=== PATIENT | female | born 1955 | race Caucasian/White ===

== ENCOUNTER 2017-06-16 07:40 | Inpatient (IN) | payer SELFPAY ==
[~2017-06-16] VITALS: Ht 160 cm; Wt 104.0 kg
[~2017-06-16 07:40] MED LIST: 1-ME1LIQ PO; ASPI81TA82 PO; BACT800T5 PO; CRES20TA PO; HYDR-3533 PO; POLY10O OU; ZOFR4TAB3 SL
[2017-06-16 07:51] VITALS: BP 131/62; PULSE 71; RESP 15; TEMP 97.8; O2SAT 100
[2017-06-16] MEDS ORDERED: SODIUM CHLOR 0.9% 1000 ML INJ 1,000 ML IV ONE ×2 (08:30→10:00)
--- NOTE | 2017-06-16 08:30 | PD ---
HPI Chief Complaint: Altered Mental Status Time Seen by Provider: 08:02 Travel History International Travel<30 days: No Contact w/Intl Traveler<30days: No Traveled to known affect area: No History of Present Illness HPI 61 y/o female presents with acting abnormally and presenting by ambulance. She states she feels like she drunk but did not drink. She notes easy bruising and multiple falls. She states she saw her primary on wednesday and was placed on ciprofloxacin and they wanted to check blood but she has not had that yet. Patient denies any other specific complaints but is a poor historian. PFSH Past Medical History Narrative Medical By records ADD: Yes (PER HISTORY) Anxiety: No Depression: Yes Cancer: No Cardiovascular Problems: Yes High Cholesterol: Yes Diminished Hearing: No Endocrine: No Gastrointestinal Disorders: No Hypertension: Yes Immune Disorder: No Implanted Vascular Access Dvce: No Musculoskeletal: No Neurologic: No Reproductive: No Respiratory: No Influenza Vaccination: Yes Menopausal: Yes : 1 Para: 1 Past Surgical History Narrative Surgical By records Abdominal Surgery: Yes (CHOLECYSTECTOMY) Cholecystectomy: Yes Other Surgery: Yes (BILATERAL BUNION) Social History Narrative Social History By records Alcohol Use: Yes (1-2 GLASSES RUM PER DAY) Tobacco Use: No Substance Use: Yes (HX MARIJUANA ) Allergies-Medications (Allergen,Severity, Reaction): Coded Allergies: No Known Allergies (Verified , 08/03/14) Reported Meds & Prescriptions Reported Meds & Active Scripts Active Bactrim DS (Sulfamethoxazole-Trimethoprim DS) 1 Tab Tab 1 Tab PO BID Lortab 5 mg/325 mg (Hydrocodone/Acetaminophen 5 mg/325 mg) 1 Tab 1 Tab PO Q6H PRN Polytrim Opth (Polymyxin/Trimethoprim Sulfate) 10 Ml Soln 1 Drop OU EVERY 3 HOURS 7 Days Zofran ODT (Ondansetron HCl) 4 Mg Tab 4 Mg SL Q6H PRN FOR NAUSEA/VOMITING Reported Aspir-81 (Aspirin) 81 Mg Tab 81 Mg PO DAILY Crestor (Rosuvastatin Calcium) 20 Mg Tab 20 Mg PO DAILY Amlodipine Besylate 10 mg (Amlodipine Besylate) 10 Mg Tab 1 Tab PO DAILY Review of Systems ROS Limitations: Poor Historian Except as stated in HPI: all other systems reviewed are Neg Physical Exam Exam Limitations: Poor Historian Narrative GENERAL: Well-nourished, well-developed patient. SKIN: Warm and dry. Multiple varying stages of bruising noted to back, breasts , abdomen, legs, arms HEAD: Normocephalic and atraumatic. EYES: No injection or drainage. ENT: No nasal drainage noted. NECK: Supple, trachea midline. Nontender in midline CARDIOVASCULAR: Regular rate and rhythm RESPIRATORY: Breath sounds equal bilaterally at apices. No accessory muscle use. GASTROINTESTINAL: Abdomen soft, non-tender, nondistended. EXTREMITIES: No specific joint pain with range of motion BACK: Nontender without obvious deformity in midline. NEUROLOGICAL: Awake. Moves all extremities and sensory grossly within normal limits. Normal speech. Data Data Last Documented VS Vital Signs Date Time Temp Pulse Resp B/P (MAP) Pulse Ox O2 Delivery O2 Flow Rate FiO2 06/16/17 08:03 Room Air 06/16/17 07:51 97.8 71 15 131/62 (85) 100 Orders Orders Complete Blood Count With Diff (06/16/17 07:58) Comprehensive Metabolic Panel (06/16/17 07:58) Prothrombin Time / Inr (Pt) (06/16/17 07:58) Act Partial Throm Time (Ptt) (06/16/17 07:58) Lactic Acid Sepsis Protocol (06/16/17 07:58) Magnesium (Mg) (06/16/17 07:58) Phosphorus (Po4) (06/16/17 07:58) Urinalysis - C+S If Indicated (06/16/17 07:58) Blood Culture (06/16/17 07:58) Chest, Single Ap (06/16/17 07:58) Blood Glucose (06/16/17 07:58) Ecg Monitoring (06/16/17 07:58) Iv Access Insert/Monitor (06/16/17 07:58) Oximetry (06/16/17 07:58) Ct Brain W/O Iv Contrast(Rout) (06/16/17 07:58) Alcohol (Ethanol) (06/16/17 07:58) Sodium Chlor 0.9% 1000 Ml Inj (Ns 1000 M (06/16/17 08:30) Urine Culture (06/16/17 08:30) Ct Abd/Pel W/O Iv Contrast (06/16/17 ) Piperacil-Tazo 4.5 Gm Premix (Zosyn 4.5 (06/16/17 09:48) Sodium Chlor 0.9% 1000 Ml Inj (Ns 1000 M (06/16/17 10:00) Admit Order (Ed Use Only) (06/16/17 10:40) Labs Laboratory Tests Test 06/16/17 08:30 White Blood Count 6.6 TH/MM3 Red Blood Count 3.94 MIL/MM3 Hemoglobin 13.1 GM/DL Hematocrit 38.2 % Mean Corpuscular Volume 97.1 FL Mean Corpuscular Hemoglobin 33.2 PG Mean Corpuscular Hemoglobin Concent 34.2 % Red Cell Distribution Width 17.0 % Platelet Count 162 TH/MM3 Mean Platelet Volume 10.1 FL Neutrophils (%) (Auto) 78.3 % Lymphocytes (%) (Auto) 7.8 % Monocytes (%) (Auto) 12.8 % Eosinophils (%) (Auto) 0.8 % Basophils (%) (Auto) 0.3 % Neutrophils # (Auto) 5.2 TH/MM3 Lymphocytes # (Auto) 0.5 TH/MM3 Monocytes # (Auto) 0.8 TH/MM3 Eosinophils # (Auto) 0.1 TH/MM3 Basophils # (Auto) 0.0 TH/MM3 CBC Comment DIFF FINAL Differential Comment Prothrombin Time 12.6 SEC Prothromb Time International Ratio 1.2 RATIO Activated Partial Thromboplast Time 23.7 SEC Urine Color YELLOW Urine Turbidity CLOUDY Urine pH 6.0 Urine Specific [place] 1.017 Urine Protein 100 mg/dL Urine Glucose (UA) NEG mg/dL Urine Ketones TRACE mg/dL Urine Occult Blood LARGE Urine Nitrite NEG Urine Bilirubin NEG Urine Urobilinogen LESS THAN 2.0 MG/DL Urine Leukocyte Esterase LARGE Urine RBC 28 /hpf Urine WBC /hpf Urine WBC Clumps MANY Urine Bacteria MOD /hpf Urine Mucus FEW /lpf Microscopic Urinalysis Comment CATH-CULTURE IND Blood Urea Nitrogen 68 MG/DL Creatinine 2.16 MG/DL Random Glucose 109 MG/DL Total Protein 7.4 GM/DL Albumin 3.1 GM/DL Calcium Level 8.6 MG/DL Phosphorus Level 3.4 MG/DL Magnesium Level 2.3 MG/DL Alkaline Phosphatase 129 U/L Aspartate Amino Transf (AST/SGOT) 1942 U/L Alanine Aminotransferase (ALT/SGPT) 915 U/L Total Bilirubin 2.3 MG/DL Sodium Level 130 MEQ/L Potassium Level 3.9 MEQ/L Chloride Level 92 MEQ/L Carbon Dioxide Level 24.0 MEQ/L Anion Gap 14 MEQ/L Estimat Glomerular Filtration Rate 23 ML/MIN Lactic Acid Level 1.1 mmol/L Ethyl Alcohol Level LESS THAN 3 MG/DL MDM Medical Decision Making Medical Screen Exam Complete: Yes Emergency Medical Condition: Yes Medical Record Reviewed: Yes (past history confirmed) Interpretation(s) EKG shows NSR, no ST elevation or depression, and no arrhythmias. No significant T-wave inversions. Limited by wandering baseline CBC & BMP Diagram 06/16/17 08:30 Total Protein 7.4, Albumin 3.1 L, Calcium Level 8.6, Phosphorus Level 3.4, Magnesium Level 2.3, Alkaline Phosphatase 129 H, Aspartate Amino Transf (AST/ SGOT) 1942 H, Alanine Aminotransferase (ALT/SGPT) 915 H, Total Bilirubin 2.3 H Last [address] 06/16/17 0758 Signed Impressions: Service Date/Time: Friday, June 16, 2017 10:17 - CONCLUSION: 1. Unremarkable exam. 2. No evidence of acute infarct, hemorrhage, mass, edema or extra-axial fluid collections. Parker Perales MD Chest X-Ray 06/16/17 0758 Signed Impressions: Service Date/Time: Friday, June 16, 2017 08:47 - CONCLUSION: No acute cardiopulmonary process. Baljeet Buckley MD Abdomen/Pelvis CT 06/16/17 0000 Signed Impressions: Service Date/Time: Friday, June 16, 2017 10:19 - CONCLUSION: 1. 4 mm calculus in the left renal collecting system at the ureteropelvic junction without significant hydronephrosis. 2. 6.9 cm cystic mass in the head of the pancreas. 3. Hypodense area within the liver adjacent to the gallbladder fossa. This does not have a typical appearance for a mass and may represent focal hepatic injury following cholecystectomy. 4. Right nephrolithiasis. Parker Peralse MD ua with uti Differential Diagnosis Thrombocytopenia, UTI, sepsis, intercranial, fracture Narrative Course Will check blood work, imaging, urinalysis and dose with IV fluids and reevaluate ed workup with acute renal failure, uti, patient updated and agrees to admit Physician Communication Physician Communication resident team agrees to admit Diagnosis Primary Impression: UTI (urinary tract infection) Qualified Codes: N39.0 - Urinary tract infection, site not specified Additional Impressions: Altered mental status Qualified Codes: R41.82 - Altered mental status, unspecified Acute renal failure Qualified Codes: N17.9 - Acute kidney failure, unspecified Abnormal LFTs Admitting Information Admitting Physician Requests: it Malena Zabala MD Jun 16, 2017 08:30
[2017-06-16 09:09] LABS: AUTOMATED NEUTROPHIL # 5.2 TH/MM3 (1.8-7.7); BASOPHIL % 0.3 % (0.0-2.0); EOSINOPHIL # 0.1 TH/MM3 (0-0.4); EOSINOPHIL % 0.8 % (0.0-4.0); HEMATOCRIT 38.2 % (35.0-46.0); HEMO FLAGS DIFF FINAL; LYMPH % 7.8 % (9.0-44.0); LYMPHOCYTE # 0.5 TH/MM3 (1.0-4.8); MEAN CELL VOLUME 97.1 FL (80.0-100.0); MEAN CORPUSCULAR HEMOGLOBIN 33.2 PG (27.0-34.0); MEAN CORPUSCULAR HGB CONC 34.2 % (32.0-36.0); MONO % 12.8 % (0.0-8.0); NEUT % 78.3 % (16.0-70.0); PLATELET COUNT 162 TH/MM3 (150-450); RED BLOOD COUNT 3.94 MIL/MM3 (4.00-5.30); WHITE BLOOD COUNT 6.6 TH/MM3 (4.0-11.0)
[2017-06-16 09:20] LABS: BACTERIA, URINE MOD /hpf; BLOOD, URINE LARGE (NEG); GLUCOSE,URINE NEG (NEG); KETONE, URINE TRACE mg/dL (NEG); MUCUS URINE FEW /lpf (OCC); NITRITE,URINE NEG (NEG); URINE COLOR YELLOW (YELLW/STRAW)
[2017-06-16 09:22] LABS: ALT (GPT) 915 U/L (10-53); APTT (PATIENT) 23.7 SEC (24.3-30.1); INTERNATIONAL NORMALIZED RATIO 1.2 RATIO; PROTHROMBIN TIME - PATIENT 12.6 SEC (9.8-11.6)
[2017-06-16 09:23] LABS: COMMENT (UR) CATH-CULTURE IND; CULTURE IF INDICATED CATH CULTURE IND
[2017-06-16 09:32] LABS: ALKALINE PHOSPHATASE 129 U/L (45-117); ANION GAP 14 MEQ/L (5-15); AST (GOT) 1942 U/L (15-37); BLOOD UREA NITROGEN 68 MG/DL (7-18); CHLORIDE 92 MEQ/L (98-107); GLOMERULAR FILTRATION RATE 23 ML/MIN (>89); MAGNESIUM 2.3 MG/DL (1.5-2.5); SODIUM (NA) 130 MEQ/L (136-145); TOTAL BILIRUBIN ADULT 2.3 MG/DL (0.2-1.0)
[2017-06-16 09:33] LABS: ALCOHOL LESS THAN 3 MG/DL (0-5); POTASSIUM 3.9 MEQ/L (3.5-5.1)
[2017-06-16] MEDS ORDERED: PIPERACIL-TAZO 4.5 GM PREMIX 100 ML IV STA (09:48)
--- NOTE | 2017-06-16 10:01 | RADRPT ---
EXAM DATE/TIME: 06/16/2017 08:47 [facility] COMPARISON: CHEST SINGLE AP, April 01, 2012, 3:18. INDICATIONS : Shortness of breath. MEDICAL HISTORY : None. SURGICAL HISTORY : None. ENCOUNTER: Initial ACUITY: 1 day PAIN SCORE: 0/10 LOCATION: Bilateral chest FINDINGS: A single view of the chest demonstrates the lungs to be symmetrically aerated without evidence of mas s, infiltrate or effusion. The cardiomediastinal contours are unremarkable. Osseous structures are intact with some degenerative spurring of the dorsal spine. CONCLUSION: No acute cardiopulmonary process. Baljeet Buckley MD on June 16, 2017 at 9:34 Board Certified Radiologist. This report was verified electronically.
--- NOTE | 2017-06-16 10:42 | RADRPT ---
EXAM DATE/TIME: 06/16/2017 10:17 [facility] COMPARISON: No previous studies available for comparison. INDICATIONS : Confusion. Fall 1 week ago. RADIATION DOSE: 56.35 CTDIvol (mGy) MEDICAL HISTORY : Hypertension. SURGICAL HISTORY : Cholecystectomy. ENCOUNTER: Initial ACUITY: 1 week PAIN SCALE: 0/10 LOCATION: cranial TECHNIQUE: Multiple contiguous axial images were obtained of the head. Using automated exposure control and adj ustment of the mA and/or kV according to patient size, radiation dose was kept as low as reasonably a chievable to obtain optimal diagnostic quality images. DICOM format image data is available electro nically for review and comparison. FINDINGS: CEREBRUM: The ventricles are normal for age. No evidence of midline shift, mass lesion, hemorrhage or acute in farction. No extra-axial fluid collections are seen. POSTERIOR FOSSA: The cerebellum and brainstem are intact. The 4th ventricle is midline. The cerebellopontine angle i s unremarkable. EXTRACRANIAL: The visualized portion of the orbits is intact. SKULL: The calvaria is intact. No evidence of skull fracture. CONCLUSION: 1. Unremarkable exam. 2. No evidence of acute infarct, hemorrhage, mass, edema or extra-axial fluid collections. Parker Perales MD on June 16, 2017 at 10:39 Board Certified Radiologist. This report was verified electronically.
--- NOTE | 2017-06-16 11:19 | HHI.HP ---
[facility] Service Family Medicine Primary Care Physician Prashant Pichardo M.D. Admission Diagnosis uti, renal failure Diagnoses: International Travel<30 Days: No Contact w/Intl Traveler<30days: No Known Affected Area: No History of Present Illness Patient is a 61 year old female with PMH significant for depression, etoh and polysubstance abuse per EMR, and previous suicide attempt brought to the ED via [facility] for evaluation of altered mental status. Patient was recently seen at her PCPs office this past Wednesday and was reportedly started on ciprofloxacin, however is it questionable whether she has been able to obtain this. Patient is seen in the ED, is alert and oriented x3 however does not answer all questions about medical history of series of events earlier today as she has a very circumstantial speech and remains confused. Patient has multiple obvious areas of bruising in various stages of healing, located throughout her body. She is alert enough to answer questions about her social history, and on questioning she denies living with anyone, or being the victim of abuse. She stated she frequently "bumps into things" and this is what may cause her bruising. Her PCPs office was called, Dr. Pichardo at [phone] to review PMH and medication list. Patient is currently on lasix 20 mg once daily, amlodipine 10 mg daily, baclofen 10 mg daily, Lipitor 40 mg daily, Lexapro 20 mg daily, Gabapentin 300 mg once daily, Metoprolol 50 mg daily, Wellbutrin 100 mg twice daily, Adderall XR 30 mg once daily + IR 10 mg twice daily. (Larry Gupta MD R2) Review of Systems ROS Limitations: Altered Mental Status (Larry Gupta MD R2) Past Family Social History Past Medical History Depression Etoh abuse Polysubstance abuse Suicide attempt HTN ADD HLD OA PVD Colitis Past Surgical History Cholecystectomy Bilateral bunion surgery (Larry Gupta MD R2) Allergies: Coded Allergies: No Known Allergies (Verified , 08/03/14) Family History Unable to be obtained secondary to AMS Social History Tobacco: States she quit smoking back in , admits to 1/2PPD-1PPD ~30 years prior to quitting Etoh: states her last drink was about 2 weeks ago, admits to drinking gin Illicit drug use: patient denied Lives in a trailer home Patient states she lives alone, unclear if patient is telling the truth (Larry Gupta MD R2) Physical Exam Vital Signs Vital Signs Date Time Temp Pulse Resp B/P (MAP) Pulse Ox O2 Delivery O2 Flow Rate FiO2 06/16/17 08:03 Room Air 06/16/17 07:51 97.8 71 15 131/62 (85) 100 Physical Exam GENERAL: NAD, lying comfortably in bed NEURO: Alert. Oriented x4. Normal speech. content designer grossly intact. Motor grossly normal. SKIN: Many areas of bruising scattered throughout the body including her back, trunk, bilateral arms, bilateral lower extremities and ankles. In various stages of healing. There appears to be bruising in the shape of a hand possibly with finger imprints along the patients posterior right shoulder. HEAD: Normocephalic. Atraumatic. EYES: PERRL. EOMI. No scleral icterus. No injection or drainage. ENT: No nasal drainage. Upper teeth are absent. Moist mucous membranes. No oral ulcers or lesions. NECK: Supple, trachea midline. No JVD. CARDIOVASCULAR: Regular rate and rhythm without murmurs, rubs, or gallops. Peripheral pulses 2+. Capillary refill < 2 seconds. RESPIRATORY: Breath sounds clear to auscultation and equal bilaterally, without wheezes, rales, or rhonchi. No accessory muscle use. GASTROINTESTINAL: Abdomen soft, nontender, protuberant, normal BS. Unable to assess for organomegaly or masses secondary to protuberance of abdomen. No rebound tenderness. No guarding. MUSCULOSKELETAL: 2+ edema of bilateral lower extremities up to mid tibias. BACK: Nontender, no obvious deformity. Significant bruising as mentioned above. Laboratory Laboratory Tests Test 06/16/17 08:30 White Blood Count 6.6 Red Blood Count 3.94 Hemoglobin 13.1 Hematocrit 38.2 Mean Corpuscular Volume 97.1 Mean Corpuscular Hemoglobin 33.2 Mean Corpuscular Hemoglobin Concent 34.2 Red Cell Distribution Width 17.0 Platelet Count 162 Mean Platelet Volume 10.1 Neutrophils (%) (Auto) 78.3 Lymphocytes (%) (Auto) 7.8 Monocytes (%) (Auto) 12.8 Eosinophils (%) (Auto) 0.8 Basophils (%) (Auto) 0.3 Neutrophils # (Auto) 5.2 Lymphocytes # (Auto) 0.5 Monocytes # (Auto) 0.8 Eosinophils # (Auto) 0.1 Basophils # (Auto) 0.0 CBC Comment DIFF FINAL Differential Comment Prothrombin Time 12.6 Prothromb Time International Ratio 1.2 Activated Partial Thromboplast Time 23.7 Urine Color YELLOW Urine Turbidity CLOUDY Urine pH 6.0 Urine Specific [place] 1.017 Urine Protein 100 Urine Glucose (UA) NEG Urine Ketones TRACE Urine Occult Blood LARGE Urine Nitrite NEG Urine Bilirubin NEG Urine Urobilinogen LESS THAN 2.0 Urine Leukocyte Esterase LARGE Urine RBC 28 Urine WBC Urine WBC Clumps MANY Urine Bacteria MOD Urine Mucus FEW Microscopic Urinalysis Comment CATH-CULTURE IND Blood Urea Nitrogen 68 Creatinine 2.16 Random Glucose 109 Total Protein 7.4 Albumin 3.1 Calcium Level 8.6 Phosphorus Level 3.4 Magnesium Level 2.3 Alkaline Phosphatase 129 Aspartate Amino Transf (AST/SGOT) 1942 Alanine Aminotransferase (ALT/SGPT) 915 Total Bilirubin 2.3 Sodium Level 130 Potassium Level 3.9 Chloride Level 92 Carbon Dioxide Level 24.0 Anion Gap 14 Estimat Glomerular Filtration Rate 23 Lactic Acid Level 1.1 Ethyl Alcohol Level LESS THAN 3 Date/Time Source Procedure Growth Status 06/16/17 08:35 Blood Peripheral Aerobic Blood Culture Pending Received 06/16/17 08:35 Blood Peripheral Anaerobic Blood Culture Pending Received 06/16/17 08:30 Urine Catheterized Urine Urine Culture Pending Received (Larry Gupta MD R2) Result Diagram: 06/16/17 0830 06/16/1730 Septic Shock Reassessment Heart: Regular rate and rhythm Lungs: Clear Skin: Warm, Dry Peripheral Pulses: Bounding Right Radial Bounding Left Radial Capillary Refill: <2 seconds (Larry Gupta MD R2) Caprini VTE Risk Assessment Caprini VTE Risk Assessment: No/Low Risk (score <= 1) Caprini Risk Assessment Model Point Value = 1 Point Value = 2 Point Value = 3 Point Value = 5 Age 41-60 Minor surgery BMI > 25 kg/m2 Swollen legs Varicose veins or History of unexplained or recurrent spontaneous Oral contraceptives or hormone replacement Sepsis (< 1 month) Serious lung disease, including pneumonia (< 1 month) Abnormal pulmonary function Acute myocardial infarction Congestive heart failure (< 1 month) History of inflammatory bowel disease Medical patient at bed rest Age 61-74 Arthroscopic surgery Major open surgery (> 45 min) Laparoscopic surgery (> 45 min) Malignancy Confined to bed (> 72 hours) Immobilizing plaster cast Central venous access Age >= 75 History of VTE Family history of VTE Factor V Leiden Prothrombin [id number] Lupus anticoagulant Anticardiolipin antibodies Elevated serum homocysteine Heparin-induced thrombocytopenia Other congenital or acquired thrombophilia Stroke (< 1 month) Elective arthroplasty Hip, pelvis, or leg fracture Acute spinal cord injury (< 1 month) Prophylaxis Regimen Total Risk Factor Score Risk Level Prophylaxis Regimen 0-1 Low Early ambulation 2 Moderate Order ONE of the following: *Sequential Compression Device (SCD) *Heparin 5000 units SQ BID 3-4 Higher Order ONE of the following medications: *Heparin 5000 units SQ TID *Enoxaparin/Lovenox 40 mg SQ daily (WT < 150 kg, CrCl > 30 mL/min) *Enoxaparin/Lovenox 30 mg SQ daily (WT < 150 kg, CrCl > 10-29 mL/min) *Enoxaparin/Lovenox 30 mg SQ BID (WT < 150 kg, CrCl > 30 mL/min) AND/OR *Sequential Compression Device (SCD) 5 or more Highest Order ONE of the following medications: *Heparin 5000 units SQ TID (Preferred with Epidurals) *Enoxaparin/Lovenox 40 mg SQ daily (WT < 150 kg, CrCl > 30 mL/min) *Enoxaparin/Lovenox 30 mg SQ daily (WT < 150 kg, CrCl > 10-29 mL/min) *Enoxaparin/Lovenox 30 mg SQ BID (WT < 150 kg, CrCl > 30 mL/min) AND *Sequential Compression Device (SCD) (Larry Gupta MD R2) Assessment and Plan Assessment and Plan 61-year-old female being admitted with AMS, UTI, acute renal insufficiency, and markedly elevated LFTs. Code Status Full code Discussed Condition With Dr. Marco Antonio Hansen (Larry Gupta MD R2) Attending Attestation Patient seen and examined. Case reviewed and discussed with the resident team. Agree with plan of care as discussed with me and documented in the resident note. (Kaylin Bernard MD) Problem List: (1) Abnormal LFTs ICD Codes: R79.89 - Other specified abnormal findings of blood chemistry Status: Acute Plan: LFTs markedly elevated, with AST > 2xALT Total bilirubin 2.3 INR 1.2 Patient is known to have a history of alcohol abuse Obtain hepatitis panel Abdomen/pelvis CT showing 4mm calculus of the left renal collecting system at the UPJ however without significant hydronephrosis; 6.9 cm cystic mass in the head of the pancreas; hypodense area measuring 52 cm in the left hepatic lobe Will consult gastroenterology, appreciate recommendations (2) UTI (urinary tract infection) ICD Codes: N39.0 - Urinary tract infection, site not specified Status: Acute Plan: UA with large LE, many wbc clumps, mod bacteria, no comment on squam cells Urine culture pending Given Zosyn 4.5gm IV in the ED Continue with Rocephin 1gm IV q24h (3) Acute renal failure ICD Codes: N17.9 - Acute kidney failure, unspecified Status: Acute Plan: Cr 2.16 on admission, baseline ~1.0 Consider pre-renal due to dehydration, no evidence of hydronephrosis on CT Continue NS at 100 cc/hr (4) Hyponatremia ICD Codes: E87.1 - Hypo-osmolality and hyponatremia Plan: Na noted to be 130 on admission NS as above Consider discontinuation of NS and fluid restriction based on repeat Na level (5) Altered mental status ICD Codes: R41.82 - Altered mental status, unspecified Status: Acute Plan: Consider cause due to urinary tract infection, medication effect, hyperammonemia, toxic metabolic Treatment UTI as above Obtain ammonia level Appreciate psychiatry consultation Urine drug screen positive for amphetamines, patient does take Adderall (6) H/O ETOH abuse ICD Codes: Z87.898 - Personal history of other specified conditions Plan: [facility] protocol IV rally pack Monitor clinically (7) Hypertension ICD Codes: I10 - Essential (primary) hypertension Plan: BP within normal limits on admission Consider restarting home medications, patient takes amlodipine 10 mg daily, metoprolol 50 mg once daily (8) Nutrition, metabolism, and development symptoms ICD Codes: R63.8 - Other symptoms and signs concerning food and fluid intake Status: Acute Plan: Fluids: NS at 100 cc/hr Electrolytes: Continue to monitor, replete as needed Nutrition: Heart healthy (Larry Gupta MD R2) Physician Certification 2 Midnight Certification Type: Admission for Inpatient Services Order for Inpatient Services The services are ordered in accordance with Medicare regulations or non- Medicare payer requirements, as applicable. In the case of services not specified as inpatient-only, they are appropriately provided as inpatient services in accordance with the 2-midnight benchmark. Estimated LOS (days): 2 days is the estimated time the patient will need to remain in the hospital, assuming treatment plan goals are met and no additional complications. Post-Hospital Plan: Not yet determined (Larry Gupta MD R2) Problem Qualifiers (1) UTI (urinary tract infection): Qualified Codes: N39.0 - Urinary tract infection, site not specified (2) Acute renal failure: Qualified Codes: N17.9 - Acute kidney failure, unspecified (3) Altered mental status: Qualified Codes: R41.82 - Altered mental status, unspecified Larry Gupta MD R2 Jun 16, 2017 11:19 Kaylin Bernard MD Jun 17, 2017 08:12
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
--- NOTE | 2017-06-16 11:35 | RADRPT ---
EXAM DATE/TIME: 06/16/2017 10:19 [place] COMPARISON: No previous studies available for comparison. INDICATIONS : Abdominal pain. ORAL CONTRAST: No oral contrast ingested. RADIATION DOSE: 16.92 CTDIvol (mGy) MEDICAL HISTORY : Hypertension. SURGICAL HISTORY : Cholecystectomy. ENCOUNTER: Initial ACUITY: 1 week PAIN SCALE: 4/10 LOCATION: Bilateral abdomen TECHNIQUE: Volumetric scanning of the abdomen and pelvis was performed. Using automated exposure control and ad justment of the mA and/or kV according to patient size, radiation dose was kept as low as reasonably achievable to obtain optimal diagnostic quality images. DICOM format image data is available electro nically for review and comparison. FINDINGS: LOWER LUNGS: The visualized lower lungs are clear. LIVER: A subcapsular area of hypodensity measuring 5 x 2 cm in size is identified in the left hepatic lobe a djacent to the gallbladder fossa. The gallbladder has been removed with multiple clips noted. Liver i s otherwise unremarkable. There is no evidence of biliary duct dilatation. SPLEEN: Normal size without lesion. PANCREAS: Large cystic mass measuring 5.8 x 6.9 cm in size is identified in the head of the pancreas. There is lateral displacement and effacement of the duodenum. The mass effaces but does not encase the mesente clemente vessels. Body and tail of the pancreas appear normal. KIDNEYS: At least 2 calculi are identified in the right kidney. A 2 mm calculus is identified in the upper lob e. A 6 mm calculus is identified in the lower pole. A 4 mm calculus is identified at the ureteropelvic junction on the left. The renal collecting sy stem is not dilated. ADRENAL GLANDS: Within normal limits. VASCULAR: There is no aortic aneurysm. BOWEL/MESENTERY: The stomach, small bowel, and colon demonstrate no acute abnormality. There is no free intraperitone al air or fluid. ABDOMINAL WALL: Small fat-containing umbilical hernia is noted. RETROPERITONEUM: There is no lymphadenopathy. BLADDER: No wall thickening or mass. REPRODUCTIVE: Within normal limits. INGUINAL: There is no lymphadenopathy or hernia. MUSCULOSKELETAL: Within normal limits for patient age. CONCLUSION: 1. 4 mm calculus in the left renal collecting system at the ureteropelvic junction without significan t hydronephrosis. 2. 6.9 cm cystic mass in the head of the pancreas. 3. Hypodense area within the liver adjacent to the gallbladder fossa. This does not have a typical ap pearance for a mass and may represent focal hepatic injury following cholecystectomy. 4. Right nephrolithiasis. Parker Perales MD on June 16, 2017 at 11:25 Board Certified Radiologist. This report was verified electronically.
[2017-06-16] MEDS ORDERED: SODIUM CHLORIDE 0.9% FLUSH 10 ML FLUSH IV FLUSH PRN (11:45)
[2017-06-16] MEDS ORDERED: SENNOSIDES 8.6 MG TAB PO PRN (11:45)
[2017-06-16] MEDS ORDERED: MAGNESIUM HYDROXIDE SUSP 30 ML CUP PO PRN (11:45)
[2017-06-16] MEDS ORDERED: BISACODYL 10 MG SUPP RECTAL PRN (11:45)
[2017-06-16] MEDS ORDERED: SODIUM CHLORIDE 0.9% FLUSH 10 ML FLUSH IV FLUSH SCH (11:45)
[2017-06-16] MEDS ORDERED: LACTULOSE SYRUP 20 GM/30 ML CUP PO PRN (11:45)
[2017-06-16] MEDS ORDERED: NALOXONE HCL 0.4 MG/ML AMP IV PUSH PRN (11:45)
[2017-06-16] MEDS ORDERED: FLUMAZENIL 0.5 MG/5 ML VIAL IV PUSH PRN (12:15)
[2017-06-16] MEDS ORDERED: SODIUM CHLOR 0.9% 1000 ML INJ 1,000 ML IV SCH (12:15)
[2017-06-16] MEDS ORDERED: LORazepam 1 MG TAB PO PRN (12:15)
[2017-06-16] MEDS ORDERED: LORazepam 2 MG/ML VIAL IV PUSH PRN ×4 (12:15)
[2017-06-16] MEDS ORDERED: LORazepam 2 MG TAB PO PRN (12:15)
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
[2017-06-16] MEDS ORDERED: HALOPERIDOL 2 MG TAB PO SCH (13:30)
[2017-06-16 15:00] VITALS: BP 126/70; PULSE 70; RESP 15; O2SAT 98
--- NOTE | 2017-06-16 15:17 | PD.CONS ---
HPI History of Present Illness This is a 61 year old F who presented to the emergency department with complaints of confusion and multiple bruises from reported falls at home. She is currently under a [place] Act. GI was consulted due to a pancreatic mass seen on CT Abdomen/pelvis done while in the ER. Pt denies N/V/abdominal pain/ constipation/diarrhea. She denies blood in stool. Denies acid reflux, heartburn. She is unsure when her last EGD was, states multiple years ago. She has also had a colonoscopy, she thinks two years ago, reportedly they found colitis. She is unsure of history of polyps. Pt reports she is a heavy drinker , very vague about how much or how often, last alcohol intake was last Wednesday. Denies any recreational drug use. Quit smoking in 2003. Reports cholecystectomy approx 2004. Denies family history of cancer. Denies personal history of liver issues. She reports a new blood pressure medication last month , unsure of the name of it. She reports previously taking Lexapro, was switched to Wellbutrin on Wednesday but only took one dose, also on Adderall. (Marquita Smith) PFSH Past Medical History Depression ETOH abuse Polysubstance abuse Suicide attempt Past Surgical History Cholecystectomy Bilateral bunion surgery (Marquita Smith) Coded Allergies: No Known Allergies (Verified , 08/03/14) Family History Unable to obtain Social History ETOH- very vague about how much she drinks, reports last drink was last Wednesday Quit smoking in 2003 Denies illicit drug use (Marquita Smith) Review of Systems Constitutional: DENIES: Weight gain, Weight loss Gastrointestinal: DENIES: Abdominal pain, Black stools, Bloody stools, Constipation, Diarrhea, Nausea, Vomiting, Difficulty Swallowing, Odynophagia, Swelling of Abdomen, Heartburn, Hematemesis Hematologic/lymphatic: COMPLAINS OF: Bruising (poor historian ) (Marquita Smith) GI Exam Vitals I&O Vital Signs Date Time Temp Pulse Resp B/P (MAP) Pulse Ox O2 Delivery O2 Flow Rate FiO2 06/16/17 08:03 Room Air 06/16/17 07:51 97.8 71 15 131/62 (85) 100 I/O 06/15/17 06/15/17 06/15/17 06/16/1706/16/17 12/6/17 07:00 15:00 23:00 07:00 15:00 23:00 Intake Total 2100 ml Balance 2100 ml Intake IV Total 2100 ml Imaging Last Impressions Head CT 06/16/17 0758 Signed Impressions: Service Date/Time: Friday, June 16, 2017 10:17 - CONCLUSION: 1. Unremarkable exam. 2. No evidence of acute infarct, hemorrhage, mass, edema or extra-axial fluid collections. Parker Perales MD Chest X-Ray 06/16/17 075 Signed Impressions: Service Date/Time: Friday, June 16, 2017 08:47 - CONCLUSION: No acute cardiopulmonary process. Baljeet Buckley MD Abdomen/Pelvis CT 06/16/17 0000 Signed Impressions: Service Date/Time: Friday, June 16, 2017 10:19 - CONCLUSION: 1. 4 mm calculus in the left renal collecting system at the ureteropelvic junction without significant hydronephrosis. 2. 6.9 cm cystic mass in the head of the pancreas. 3. Hypodense area within the liver adjacent to the gallbladder fossa. This does not have a typical appearance for a mass and may represent focal hepatic injury following cholecystectomy. 4. Right nephrolithiasis. Parker Perales MD Laboratory Test 06/16/17 08:30 White Blood Count 6.6 TH/MM3 Red Blood Count 3.94 MIL/MM3 Hemoglobin 13.1 GM/DL Hematocrit 38.2 % Mean Corpuscular Volume 97.1 FL Mean Corpuscular Hemoglobin 33.2 PG Mean Corpuscular Hemoglobin Concent 34.2 % Red Cell Distribution Width 17.0 % Platelet Count 162 TH/MM3 Mean Platelet Volume 10.1 FL Neutrophils (%) (Auto) 78.3 % Lymphocytes (%) (Auto) 7.8 % Monocytes (%) (Auto) 12.8 % Eosinophils (%) (Auto) 0.8 % Basophils (%) (Auto) 0.3 % Neutrophils # (Auto) 5.2 TH/MM3 Lymphocytes # (Auto) 0.5 TH/MM3 Monocytes # (Auto) 0.8 TH/MM3 Eosinophils # (Auto) 0.1 TH/MM3 Basophils # (Auto) 0.0 TH/MM3 CBC Comment DIFF FINAL Differential Comment Prothrombin Time 12.6 SEC Prothromb Time International Ratio 1.2 RATIO Activated Partial Thromboplast Time 23.7 SEC Urine Color YELLOW Urine Turbidity CLOUDY Urine pH 6.0 Urine Specific [place] 1.017 Urine Protein 100 mg/dL Urine Glucose (UA) NEG mg/dL Urine Ketones TRACE mg/dL Urine Occult Blood LARGE Urine Nitrite NEG Urine Bilirubin NEG Urine Urobilinogen LESS THAN 2.0 MG/DL Urine Leukocyte Esterase LARGE Urine RBC 28 /hpf Urine WBC /hpf Urine WBC Clumps MANY Urine Bacteria MOD /hpf Urine Mucus FEW /lpf Microscopic Urinalysis Comment CATH-CULTURE IND Blood Urea Nitrogen 68 MG/DL Creatinine 2.16 MG/DL Random Glucose 109 MG/DL Total Protein 7.4 GM/DL Albumin 3.1 GM/DL Calcium Level 8.6 MG/DL Phosphorus Level 3.4 MG/DL Magnesium Level 2.3 MG/DL Alkaline Phosphatase 129 U/L Aspartate Amino Transf (AST/SGOT) 1942 U/L Alanine Aminotransferase (ALT/SGPT) 915 U/L Total Bilirubin 2.3 MG/DL Sodium Level 130 MEQ/L Potassium Level 3.9 MEQ/L Chloride Level 92 MEQ/L Carbon Dioxide Level 24.0 MEQ/L Anion Gap 14 MEQ/L Estimat Glomerular Filtration Rate 23 ML/MIN Lactic Acid Level 1.1 mmol/L Urine Opiates Screen NEG Urine Barbiturates Screen NEG Urine Amphetamines Screen POS Urine Benzodiazepines Screen NEG Urine Cocaine Screen NEG Urine Cannabinoids Screen NEG Ethyl Alcohol Level LESS THAN 3 MG/DL Date/Time Source Procedure Growth Status 06/16/17 08:35 Blood Peripheral Aerobic Blood Culture Pending Received 06/16/17 08:35 Blood Peripheral Anaerobic Blood Culture Pending Received 06/16/17 08:30 Urine Catheterized Urine Urine Culture Pending Received Physical Examination HEENT: Normocephalic; atraumatic CHEST: CTA CARDIAC: RRR ABDOMEN: Soft, nondistended, nontender; no hepatosplenomegaly; bowel sounds active x 4. EXTREMITIES: No clubbing, cyanosis, or edema. 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 (Marquita Smith) Assessment and Plan Plan Assessment Pancreatic mass- CT abdomen/pelvis W/O IV contrast (06/16) --> 4mm calculus in the left renal collecting system at the ureteropelvic junction without significant hydronephrosis. 6.9cm cystic mass in the head of the pancreas. Hypodense area within the liver adjacent to the gallbladder fossa. This does not have a typical appearance for a mass and may represent focal hepatic injury following cholecystectomy. Right nephrolithiasis. AST-1942 ALT -915 Tbili- 2.3 Alk phos-129 Denies any GI symptoms at this time including unintentional weight loss. Elevated LFTs- will do liver work up to rule out other causes of elevation ETOH abuse- very vague about how much or how often she drinks, reportedly last alcohol intake was last Wednesday Plan MRCP today CA 19-9 ERCP tomorrow Obtain consents NPO after MN Pending liver work-upa Supportive care Further recommendations to follow based on results of above This patient has been seen and examined by myself and Dr. Jackson and this note is written on his behalf (Marquita Smith) Physician Comments Seen and examined with [facility]RATE, CT reviewed. MRCP tonite. Repeat labs in am, possible ERCP tomorrow. Pt. seems to understand and is agreeable. Thank you (Charlene Chowdary MD) Marquita Smith Jun 16, 2017 15:17 Charlene Chowdary MD Jun 16, 2017 17:58
--- NOTE | 2017-06-16 15:20 | HHI.DCPOC ---
Discharge Care Plan Diagnosis: (1) UTI (urinary tract infection) (2) Altered mental status (3) Hyponatremia (4) Unspecified psychosis (5) Abnormal LFTs (6) Acute renal failure Goals to Promote Your Health * To prevent worsening of your condition and complications * To maintain your health at the optimal level Directions to Meet Your Goals Take your medications as prescribed Follow your dietary instruction Follow activity as directed Keep your appointments as scheduled Take your immunizations and boosters as scheduled If your symptoms worsen call your PCP, if no PCP go to Urgent Care Center or Emergency Room Smoking is Dangerous to Your Health. Avoid second hand smoke Call the 24-hour hour crisis hotline for domestic abuse at Nazia Hansen MD R1 Jun 16, 2017 15:20
[2017-06-16] MEDS ORDERED: CEFT1INJ2 IV (15:28)
[2017-06-16 15:48] VITALS: BP 128/68
[2017-06-16] MEDS ORDERED: cefTRIAXone INJ 1,000 MG in SODIUM CHLORIDE 0.9% INJ 100 ML IV SCH (17:00)
[2017-06-16] MEDS ORDERED: THIAMINE INJ 100 MG in SODIUM CHLORIDE 0.9% INJ 100 ML IV SCH (18:00)
[2017-06-16] MEDS ORDERED: MULTIVITAMIN INJ 10 ML, FOLIC ACID INJ 1 MG in SODIUM CHLORID 0.9% 500 ML INJ 500 ML IV SCH (20:00)
[2017-06-16] MEDS ORDERED: DOCUSATE SODIUM 50 MG/SENNA 8.6 MG TAB PO SCH (21:00)
[2017-06-17] MEDS ORDERED: ASPIRIN 81 MG CHEW TAB PO SCH (09:00)
--- NOTE | 2017-06-17 10:32 | EKG ---
Date Performed: 06/16/2017 Time Performed: 08:11:52 PTAGE: 61 years EKG: Sinus rhythm NORMAL ECG PREVIOUS TRACING : 04/01/2012 02.07 Compared to prior tracing no significant change DOCTOR: Krystyna Schilling Interpretating Date/Time 06/17/2017 10:31:32
== END 2017-06-16 15:50 | DRG 690 ==
LOC: NEPC 07:40 → NEDA 10:41
PROVIDERS: ADMIT Family Medicine; ATTEND Family Medicine
DX: N39.0 Urinary tract infection, site not specified (principal); N17.9 Acute kidney failure, unspecified; E87.1 Hypo-osmolality and hyponatremia; R41.82 Altered mental status, unspecified; F32.9 Major depressive disorder, single episode, unspecified; I10 Essential (primary) hypertension; E78.5 Hyperlipidemia, unspecified; I73.9 Peripheral vascular disease, unspecified; F10.10 Alcohol abuse, uncomplicated; F29 Unspecified psychosis not due to a substance or known physiological condition; N20.0 Calculus of kidney; R29.6 Repeated falls; K86.9 Disease of pancreas, unspecified; F98.8 Other specified behavioral and emotional disorders with onset usually occurring in childhood and adolescence; Z87.891 Personal history of nicotine dependence; Z91.5 Personal history of self-harm
CPT/HCPCS: 70450; 71010; 74176; 80053; 80307; 81001; 83605; 83735; 84100; 85025; 85610; 85730; 87040; 87077; 87086; 87186; 87205; 93005; J2543; J7030

== ENCOUNTER 2017-06-16 15:29 | Inpatient (IN) | payer SELFPAY ==
[~2017-06-16] VITALS: Ht 160 cm; Wt 84.5 kg
[~2017-06-16 15:29] MED LIST changes: +CEFT1INJ2 IV
[2017-06-16 17:47] VITALS: BP 150/73; PULSE 75; TEMP 99.3; O2SAT 97
[2017-06-17 06:18] VITALS: BP 148/68; PULSE 78; RESP 19; TEMP 97.4; O2SAT 97
[2017-06-17] MEDS ORDERED: LORazepam 2 MG TAB PO PRN (07:00)
[2017-06-17] MEDS ORDERED: LORazepam 2 MG/ML VIAL IV PUSH PRN ×4 (07:00)
[2017-06-17] MEDS ORDERED: FLUMAZENIL 0.5 MG/5 ML VIAL IV PUSH PRN (07:00)
--- NOTE | 2017-06-17 07:54 | PD.CONS ---
HPI Service [facility] Consult Requested By Dr Fall Reason for Consult medical management Primary Care Physician Prashant Pichardo M.D. Diagnoses: (1) Unspecified psychosis (2) Hyponatremia (3) Hypertension (4) Nutrition, metabolism, and development symptoms (5) H/O ETOH abuse History of Present Illness Patient is a 61 year old female with PMH significant for depression, ETOH and polysubstance abuse per EMR, and previous suicide attempt brought to the ED via [facility] for evaluation of altered mental status. Patient was recently seen at her PCPs office this past Wednesday and was reportedly started on ciprofloxacin, however is it questionable whether she has been able to obtain this. Patient was treated on medical floor for UTI. Also received IVF as noted NAOMI. She waas discharged at med/psych unit. Patient has multiple obvious areas of bruising in various stages of healing, located throughout her body. Stated she frequently "bumps into things" and this is what may cause her bruising, denies being the victim of abuse. Patient appears in nad at this time. Denies cp, sob, n/v/d/c. No fever or chills. Review of Systems Except as stated in HPI: all other systems reviewed are Neg Past Family Social History Allergies: Coded Allergies: No Known Allergies (Verified , 08/03/14) Past Medical History Depression Etoh abuse Polysubstance abuse Suicide attempt HTN ADD HLD OA PVD Colitis Past Surgical History Cholecystectomy Bilateral bunion surgery Reported Medications Reported Meds & Active Scripts Active Ceftriaxone Inj (Ceftriaxone Sodium/Dextrose) 1 Gm/50 Ml Bagp 1 Gm IV Q24H please start 06/17/17 0800 Lortab 5 mg/325 mg (Hydrocodone/Acetaminophen 5 mg/325 mg) 1 Tab 1 Tab PO Q6H PRN Zofran ODT (Ondansetron HCl) 4 Mg Tab 4 Mg SL Q6H PRN FOR NAUSEA/VOMITING Reported Aspir-81 (Aspirin) 81 Mg Tab 81 Mg PO DAILY Crestor (Rosuvastatin Calcium) 20 Mg Tab 20 Mg PO DAILY Family History Diabetes runs in family, hypertension, hyperlipidemia Social History Tobacco: States she quit smoking back in , admits to 1/2PPD-1PPD ~30 years prior to quitting Etoh: states her last drink was about 2 weeks ago, admits to drinking gin Illicit drug use: patient denied Lives in a trailer home Patient states she lives alone, unclear if patient is telling the truth Physical Exam Vital Signs Vital Signs Date Time Temp Pulse Resp B/P (MAP) Pulse Ox O2 Delivery O2 Flow Rate FiO2 06/17/17 06:18 97.4 78 19 148/68 (94) 97 06/16/17 17:47 99.3 75 150/73 (98) 97 Physical Exam GENERAL: This is a well-nourished, well-developed patient, in no apparent distress. SKIN: Many areas of bruising scattered throughout the body including her back, trunk, bilateral arms, bilateral lower extremities and ankles. In various stages of healing. There appears to be bruising in the shape of a hand possibly with finger imprints along the patients posterior right shoulder. HEAD: Atraumatic. Normocephalic. No temporal or scalp tenderness. EYES: Pupils equal round and reactive. Extraocular motions intact. No scleral icterus. No injection or drainage. ENT: Nose without bleeding, purulent drainage or septal hematoma. Throat without erythema, tonsillar hypertrophy or exudate. Uvula midline. Airway patent. NECK: Trachea midline. No JVD or lymphadenopathy. Supple, nontender, no meningeal signs. CARDIOVASCULAR: Regular rate and rhythm without murmurs, gallops, or rubs. RESPIRATORY: Clear to auscultation. Breath sounds equal bilaterally. No wheezes , rales, or rhonchi. GASTROINTESTINAL: Abdomen soft, non-tender, nondistended. No hepato-splenomegaly , or palpable masses. No guarding. MUSCULOSKELETAL: 2+ edema of bilateral lower extremities up to mid tibias. No joint tenderness, effusion, or edema noted. No calf tenderness. Negative Homans sign bilaterally. NEUROLOGICAL: Awake and alert. Cranial nerves II through XII intact. Motor and sensory grossly within normal limits. Five out of 5 muscle strength in all muscle groups. Normal speech. Assessment and Plan Assessment and Plan 61-year-old female being admitted with AMS, UTI, acute renal insufficiency, and markedly elevated LFTs. Abnormal LFTs 2/2 EtOH use LFTs markedly elevated, with AST > 2xALT Total bilirubin 2.3 INR1.2 Patient is known to have a history of alcohol abuse Abdomen/pelvis CT showing 4mm calculus of the left renal collecting system at the UPJ however without significant hydronephrosis; 6.9 cm cystic mass in the head of the pancreas; hypodense area measuring 52 cm in the left hepatic lobe Gastroenterology consulted appreciate recommendations, plan for MRCP. Repeat labs in am, possible ERCP today. Further work up is pending UTI (urinary tract infection) UA with large LE, many wbc clumps, mod bacteria Urine culture however normal chadd, DC antibiotic Acute renal failure Cr 2.16 on admission, baseline ~1.0. Consider pre-renal due to dehydration, no evidence of hydronephrosis on CT Received NS at 100 cc/hr, kidney function back at baseline, monitor Hyponatremia Na noted to be 130 on admission. Monitor closely Altered mental status. Resolving Poss 2/2 medication induced, toxic metabolic Appreciate psychiatry consultation Urine drug screen positive for amphetamines, patient does take Adderall H/O ETOH abuse CICA protocol IV rally pack Monitor clinically Hypertension BP within normal limits on admission. Restarting home medications as appropriate, patient takes amlodipine 10 mg daily , metoprolol 50 mg once daily Monitor BP and adjust meds as need. DVT ppx ambulation avoid mechanical or chemoprophylaxis at this time as patient with easy bruising Discussed Condition With patient, nurse Janki Curtis MD Jun 17, 2017 07:54
[2017-06-17] MEDS ORDERED: ALUMINUM/MAGNESIUM/SIMETH 30 ML CUP PO PRN (08:00)
[2017-06-17] MEDS ORDERED: MAGNESIUM HYDROXIDE SUSP 30 ML CUP PO PRN (08:00)
[2017-06-17] MEDS ORDERED: LORazepam 2 MG/ML VIAL IM PRN (08:00)
[2017-06-17] MEDS ORDERED: ACETAMINOPHEN 325 MG TAB PO PRN (08:00)
[2017-06-17] MEDS ORDERED: ONDANSETRON ODT 4 MG TAB SL PRN (08:00)
[2017-06-17] MEDS: HALOPERIDOL 2 MG TAB PO SCH ×2 (09:00→21:06)
[2017-06-17] MEDS: cefTRIAXone 1,000 MG/NS 100 ML IV SCH ×2 (09:00)
[2017-06-17] MEDS: DOCUSATE SODIUM 50 MG/SENNA 8.6 MG TAB PO SCH ×2 (09:00→21:06)
[2017-06-17] MEDS: NICOTINE 21 MG/24 HR PATCH T-DERMAL SCH (09:00)
[2017-06-17] MEDS: ASPIRIN 81 MG CHEW TAB PO SCH (09:40)
[2017-06-17] MEDS: ATORVASTATIN 40 MG TAB PO SCH (09:40)
[2017-06-17] MEDS: ACETAMINOPHEN/HYDROcodone 325 MG/5 MG TAB PO PRN (09:41)
--- NOTE | 2017-06-17 10:30 | RADRPT ---
EXAM DATE/TIME: 06/17/2017 08:24 [facility] COMPARISON: CT ABDOMEN & PELVIS W/O CONTRAST, June 16, 2017, 10:19. INDICATIONS : Abnormal CT scan. MEDICAL HISTORY : None. SURGICAL HISTORY : Cholecystectomy. Bunion surgery ENCOUNTER: Subsequent ACUITY: 2 day PAIN SCORE: 0/10 LOCATION: abdomen TECHNIQUE: Multiplanar, multisequence magnetic resonance imaging of the abdomen was performed. High-resolution 3D dataset was utilized to reconstruct maximum-intensity projection (MIP) images. FINDINGS: INTRAHEPATIC BILE DUCTS: Within normal limits. No significant anatomical variant is present. EXTRAHEPATIC BILE DUCTS: The common bile duct measures 4 mm. It tapers distally. The distal common bile duct is slightly poste riorly displaced secondary to the cystic lesion in the pancreatic head. No stone or filling defect is identified. GALLBLADDER: Surgically absent. There are clips in the gallbladder fossa causing mild susceptibility artifact. LIVER: The liver measures 13 cm in length and demonstrates signal loss indicating steatosis. No concerning l iver lesion is seen. PANCREAS: Main pancreatic duct is normal measuring 2 mm. It abuts the cystic lesion centered in the pancreatic head. No ectatic sidebranches are present. The prior CT demonstrated no pancreatic calcification. Radha tered within the head of the pancreas and with mass effect on the second portion the duodenum, distal common bile duct, and pancreatic duct, there is a cystic lesion measuring 5.6 x 4.8 x 6.9 cm. It dem onstrates T2 hyperintense signal and mild increased T1 signal. It has mural nodules along the wall wh ich demonstrate mild susceptibility artifact. No contrast could be administered given the patient's G FR. The wall is mildly thickened and demonstrates decreased T2 signal. No septations are present. OTHER: The remaining visualized structures demonstrate no acute abnormality on this non-contrast exam. There is a 9 mm cyst at the upper pole of the left kidney. CONCLUSION: 1. Complex cystic lesion centered within the pancreatic head measuring up to 6.9 cm. It has mass effe ct on the surrounding structures but is not causing any bile duct or pancreatic duct obstruction and does not appear to cause any gastric outlet obstruction. 2. The cystic lesion demonstrates mural nodules possibly with hemosiderin. It contains no septations. The top 2 differential diagnostic considerations include pancreatic pseudocyst or mucinous cystic ne oplasm. A pseudocyst is favored given the mildly thick wall and lack of septations. However, correlat e with clinical history to evaluate for any known history of pancreatitis. Suggest gastroenterology c onsultation as this lesion will likely need endoscopic ultrasound cyst aspiration for more definitive characterization. Niko Robertson MD on June 17, 2017 at 10:09 Board Certified Radiologist. This report was verified electronically.
--- NOTE | 2017-06-17 12:20 | HHI.HP ---
Provisional Diagnosis Admission Date Jun 16, 2017 at 16:00 [place] I. Unspecified psychosis Certification of Person's Competence To Provide Express and Informed Consent I have personally examined Jayashree Delcid , a person being served at [facility] on, Jun 17, 2017 12:03. Express and informed consent means consent voluntarily given in writing, by a competent person, after sufficient explanation and disclosure of the subject matter involved to enable the person to make a knowing and willful decision without any element of force, fraud, deceit, duress, or other form of constraint or coercion. This person is 18 years of age or older, is not now known to be incompetent to consent to treatment with a guardian advocate, and does not have a health care surrogate or proxy currently making medical treatment decisions. I have found this person to be one of the following: [x] Competent to provide express and informed consent, as defined above, for voluntary admission to this facility and is competent to provide express and informed consent for treatment. He/she has the consistent capacity to make well reasoned, willful, and knowing decisions concerning his or her medical or mental health treatment. The person fully and consistently understands the purpose of the admission for examination/placement and is fully capable of personally exercising all rights assured under [place] Incompetent to provide express and informed consent to voluntary admission, and this is incompetent to provide express and informed consent to treatment. The person must be transferred to involuntary status and a petition for a guardian advocate filed with the Circuit Court. [] Refusing to provide express and informed consent to voluntary admission but is competent to provide express and informed consent for treatment. The person must be discharged or transferred to involuntary status. Form shall be completed within 24 hours of a person's arrival at the receiving facility and filed in the clinical record of each person: 1. Admitted on a voluntary basis 2. Permitted to provide express and informed consent to his/her own treatment 3. Allowed to transfer from involuntary to voluntary status 4. Prior to permitting a person to consent to his or her own treatment after having been previously found incompetent to consent to treatment. History of Present Illness Capacity: Has Capacity HPI Patient is a 61-year-old woman, single, domiciled alone, unemployed, past psychiatric history of depression, ADHD as per patient, alcohol use disorder, 1 prior psychiatric hospitalization ([facility] in 2011), no prior suicide attempts or self-injurious behavior, with a past medical history of hypertension , hyperlipidemia brought in by even back for altered mental status, confused and admitted to medical floor for altered mental status, UTI, NAOMI, and increased LFTs due to patient being noted to be disorganized, internally stimulated and tangential along with perceptual disturbances (auditory and visual) as well as paranoid ideation of neighbors trying to kill her patient was transferred to the inpatient psychiatry unit for further evaluation and management. Patient was found lying in hospital bed, cooperative. Patient states that she was having hallucinations and reports having continue visual hallucinations of a "little man who comes to get you". At this hallucination does not speak to her but she hasn't perceiving this visua last time being last evening. Patient states that he is messing with me, coming up behind me" ". Patient states having no difficulty with sleep lately, but has noticed decreased appetite and energy and concentration along with feeling depressed for the past couple of months. Patient states that she recently switched to Wellbutrin by her primary care doctor from Lexapro but has not started the medication that she had not filled the prescription. Patient states that recently she had lost her job, continues having a strange relationship with her son, and feels she has not helped with the care of her mother who is in a longterm. Patient at this time denies SI, HI, alert and oriented 3. Patient noted to have multiple bruises on arms and states that she has multiple bruises on her back and reports having probable following on plastic container which she later noticed had been broken due to her suspected fall. Continues report feeling depressed, denies any SI or HI, denies any perceptual disturbances at time of interview. Denies any delusions at this time. Psychiatric history: Depression, ADHD as per patient, alcohol use disorder, 1 prior psychiatric hospitalization at [facility] in 2011, no prior suicide attempts or self-injurious behavior. No current outpatient psychiatry services at this time. Previous medication trials include Wellbutrin XL 150 mg by mouth daily, Lexapro 20 mg by mouth daily gabapentin 300 mg daily. Patient denies history of abuse Family psychiatric history: Depression the family (unspecified) and alcohol use disorder with grandmother. Substance use history: Alcohol use daily about half a pint to 1 pint of whiskey for the past 6 months, last use was 45 days ago. Patient reports marijuana use in her 20s, denies use of any other substance. Patient denies previous detox or rehabilitation programs. Past medical history: Hypertension, hyperlipidemia Allergies: NKDA Social history: Born in [facility], raised in [place] and [place], has 2 siblings, father is , mother currently in [facility], she is single, has 1 estranged son, highest education is high school, no history, no legal history, amish is [employer], patient domiciled alone. Review of Systems Except as stated in HPI: all other systems reviewed are Neg Past Psych History Psychological trauma history denies Violence risk - others (6 mos) low Violence risk - self (6 mos) low Substance Abuse History Drugs/Alcohol past 12 months Alcohol use daily about half a pint to 1 pint of whiskey for the past 6 months, last use was 45 days ago. Patient reports marijuana use in her 20s, denies use of any other substance. Patient denies previous detox or rehabilitation programs. Past Family Social History Coded Allergies: No Known Allergies (Verified , 08/03/14) Active Scripts Ceftriaxone Inj (Ceftriaxone Inj) 1 Gm/50 Ml Bagp, 1 GM IV Q24H for Infection, # 2 BAG 0 Refills please start 06/17/17 0800 Prov:Nazia Hansen MD R1 06/16/17 Hydrocodone/Acetaminophen 5 mg/325 mg (Lortab 5 mg/325 mg) 1 Tab, 1 TAB PO Q6H Y for PAIN, #6 TAB Prov:Teodoro Ramirez DO 11/21/14 Ondansetron (Zofran ODT) 4 Mg Tab, 4 MG SL Q6H Y for nausea, #6 TAB FOR NAUSEA/VOMITING Prov:Teodoro Ramirez DO 11/21/14 Reported Medications Aspirin (Aspir-81) 81 Mg Tab, 81 MG PO DAILY, TAB 11/21/14 Crestor (Crestor) 20 Mg Tab, 20 MG PO DAILY, #30 TAB 11/21/14 Discontinued Reported Medications 1-Methyl 2-Pyrrolidone (Bulk) (1-Methyl 2-Pyrrolidinone) 10 Mg Tab, 1 TAB PO DAILY, TAB 11/21/14 Discontinued Scripts Sulfamethoxazole-Trimethoprim DS (Bactrim DS) 1 Tab Tab, 1 TAB PO BID, #6 TAB Prov:Teodoro Ramirez DO 11/21/14 Polymyxin/Trimethoprim (Polytrim Opth) 10 Ml Soln, 1 DROP OU every 3 hours for 7 Days Prov:Teodoro Ramirez DO 11/21/14 Current Medications Medications (Trade) Dose Ordered Sig/Bruce Route Start Time Stop Time Status Last Admin (Aspirin Chew) 81 mg DAILY PO 06/17/17 09:00 06/17/17 09:40 (Romazicon Inj) 0.2 mg Q1M PRN IV PUSH 06/17/17 07:00 (Ativan) 1 mg Q4H PRN PO 06/17/17 07:00 (Ativan Inj) 1 mg Q4H PRN IV PUSH 06/17/17 07:00 (Ativan) 2 mg Q2H PRN PO 06/17/17 07:00 (Ativan Inj) 2 mg Q2H PRN IV PUSH 06/17/17 07:00 (Ativan Inj) 2 mg Q1H PRN IV PUSH 06/17/17 07:00 (Ativan Inj) 2 mg Q15M PRN IV PUSH 06/17/17 07:00 (Haldol) 2 mg BID PO 06/17/17 09:00 06/17/17 09:00 (Dary-Colace) 1 tab BID PO 06/17/17 09:00 (Ativan) 1 mg Q6H PRN PO 06/17/17 08:00 (Ativan Inj) 1 mg Q6H PRN IM 06/17/17 08:00 (Tylenol) 650 mg Q4H PRN PO 06/17/17 08:00 (Milk Of Magnesia Liq) 30 ml DAILY PRN PO 06/17/17 08:00 (Mag-Al Plus Susp Liq) 30 ml Q6H PRN PO 06/17/17 08:00 (Habitrol 21 Mg Patch.24 Hr) 1 patch DAILY T-DERMAL 06/17/17 09:00 Miscellaneous Information 1 HS T-DERMAL 06/17/17 21:00 Ceftriaxone Sodium 1000 mg/ Sodium Chloride 100 ml @ 200 mls/hr Q24H IV 06/17/17 09:00 06/17/17 09:00 ([place] 5-325 Mg) 1 tab Q6H PRN PO 06/17/17 08:00 06/17/17 09:41 (Zofran Odt) 4 mg Q6H PRN SL 06/17/17 08:00 (Lipitor) 40 mg DAILY PO 06/17/17 09:00 06/17/17 09:40 Family Psych History depression in the family (unspecified), alcohol use disorder with grandmother Social History Born in [place], [place], raised in [place] and [place], has 2 siblings, father is , mother currently in [facility], she is single , has 1 estranged son, highest education is high school, no history, no legal history, amish is [employer], patient domiciled alone. Patient's Strengths (min. 2) verbal and communicative Physical Exam Patient not noted to be in acute distress, noted with bruising in multiple stages on upper extremities, no gross motor abnormalities, no tremors or EPS, no noted psychomotor retardation or agitation. Vital Signs Vital Signs Date Time Temp Pulse Resp B/P (MAP) Pulse Ox O2 Delivery O2 Flow Rate FiO2 06/17/17 06:18 97.4 78 19 148/68 (94) 97 Mental Status Examination Appearance: Disheveled Consciousness: Alert Orientation: Person, Place, Date/Time Speech: Unremarkable Language: Adequate Fund of Knowledge: Inadequate Attention and Concentration: Adequate Memory: Impaired Mood: Appropriate Affect: Blunt Thought Process & Associations: Linear Thought Content: Hallucinations, Delusional Hallucination Type: Visual Delusion Type: Paranoid Suicidal Ideation: No Suicidal Plan: No Suicidal Intention: No Homicidal Ideation: No Homicidal Plan: No Homicidal Intention: No Insight: Poor Judgment: Poor Assessment & Plan Problem List: (1) Unspecified psychosis ICD Codes: F29 - Unspecified psychosis not due to a substance or known physiological condition Assessment & Plan Estimated LOS:5-7 days. Patient is a 61-year-old woman who carries a diagnosis depression, with previous psychiatric hospitalization, alcohol use disorder, who was admitted to the patient's medical unit for also mental status , UTI, NAOMI, increased LFTs, whereupon psychiatric consultation was noted to be internally stimulated, disorganized and endorsing paranoid ideation and perceptual disturbances which she was admitted to the inpatient psychiatry unit for further evaluation and management. Patient continues to report visual hallucinations as well as endorsing some depressive symptoms. We'll start Haldol 2 mg by mouth twice a day for psychosis, Wellbutrin XL 150 mg by mouth daily for depression. Continue recommendations as per primary medical team. Collateral information pending. Discharge planning in progress Discharge Planning Patient to return back to her residence once psychiatrically stable. Shaq Gonzalez MD Jun 17, 2017 12:20
[2017-06-17] MEDS: buPROPion HCL 150 MG SUSTAINED RELEASE TAB PO SCH (12:30)
--- NOTE | 2017-06-17 13:45 | HHI.GIFU ---
Subjective Remarks Pt resting in bed. c/o loose stools every time she eats and her bottom is getting irritated. No abd pain. (Leonarda Oh) Objective Vitals I&O Vital Signs Date Time Temp Pulse Resp B/P (MAP) Pulse Ox O2 Delivery O2 Flow Rate FiO2 06/17/17 06:18 97.4 78 19 148/68 (94) 97 06/16/17 17:47 99.3 75 150/73 (98) 97 I/O 06/16/17 06/16/17 06/16/17 06/17/17 06/17/17 06/17/17 06:59 14:59 22:59 06:59 14:59 22:59 Intake Total 480 ml Balance 480 ml Intake Oral 480 ml # Voids 3 # Bowel Movements 3 Laboratory Laboratory Tests Test 06/17/17 12:33 Imaging Last Impressions Cholangiopancreatography MRI 06/17/17 0849 Signed Impressions: Service Date/Time: June 08:24 - CONCLUSION: 1. Complex cystic lesion centered within the pancreatic head measuring up to 6.9 cm. It has mass effect on the surrounding structures but is not causing any bile duct or pancreatic duct obstruction and does not appear to cause any gastric outlet obstruction. 2. The cystic lesion demonstrates mural nodules possibly with hemosiderin. It contains no septations. The top 2 differential diagnostic considerations include pancreatic pseudocyst or mucinous cystic neoplasm. A pseudocyst is favored given the mildly thick wall and lack of septations. However, correlate with clinical history to evaluate for any known history of pancreatitis. Suggest gastroenterology consultation as this lesion will likely need endoscopic ultrasound cyst aspiration for more definitive characterization. Niko Robertson MD Physical Exam HEENT: PERRL; normocephalic; atraumatic; no jaundice. CHEST: CTA CARDIAC: RRR ABDOMEN: Soft, distended, nontender; no hepatosplenomegaly; bowel sounds are present in all four quadrants. EXTREMITIES: No clubbing, cyanosis, or edema. SKIN: Normal; no rash; no jaundice. CALL CENTER RECEPTIONIST: No focal deficits; alert and oriented times three. (Leonarda Oh) Assessment and Plan Plan Assessment - Pancreatic mass- CT abdomen/pelvis W/O IV contrast (06/16) --> 4mm calculus in the left renal collecting system at the ureteropelvic junction without significant hydronephrosis. 6.9cm cystic mass in the head of the pancreas. Hypodense area within the liver adjacent to the gallbladder fossa. This does not have a typical appearance for a mass and may represent focal hepatic injury following cholecystectomy. Right nephrolithiasis. MRCP noted , cystic mass. - loose stools - takes lomotil at home -elevated LFTs - w/u including hep panel pending. - ETOH abuse- very vague about how much or how often she drinks, reportedly last alcohol intake was last Wednesday PLAN - EUS with FNA - obtain consent - NPO after midnight - immodium prn -Supportive care - Further recommendations to follow based on results of above This patient has been seen and examined by myself and and this note is written on his behalf (Leonarda Oh) Physician Comments Seen and examined with [facility]T< EUS/FNA planned for tomorrow. (Charlene Chowdary MD) Leonarda Oh Jun 17, 2017 13:44 Charlene Chowdary MD Jun 17, 2017 15:47
[2017-06-17] MEDS: LOPERAMIDE HCL 2 MG CAP PO PRN (15:20)
[2017-06-17 18:31] VITALS: BP 118/54; PULSE 76; RESP 16; TEMP 97.5; O2SAT 94
[2017-06-17] MEDS: REMOVE OLD NICOTINE PATCH T-DERMAL SCH (21:00)
[2017-06-17] MEDS: LORazepam 1 MG TAB PO PRN (21:08)
[2017-06-18] MEDS: LOPERAMIDE HCL 2 MG CAP PO PRN ×2 (05:32→21:06)
[2017-06-18 06:04] VITALS: BP 135/63; PULSE 101; RESP 18; TEMP 97.8; O2SAT 95
--- NOTE | 2017-06-18 07:51 | HHI.PR ---
Subjective Remarks The patient is in the bed appears in acute distress at this time. She is sleepy. Return GI lab. Says she doesn't have any pain at this time. No vomiting no diarrhea or constipation. Denies fever or chills. Objective Vitals Vital Signs Date Time Temp Pulse Resp B/P (MAP) Pulse Ox O2 Delivery O2 Flow Rate FiO2 06/18/17 06:04 97.8 101 18 135/63 (87) 95 06/17/17 18:31 97.5 76 16 118/54 (75) 94 I/O 06/17/17 06/17/17 06/17/17 06/18/17 06/18/17 06/18/17 07:00 15:00 23:00 07:00 15:00 23:00 Intake Total 480 ml 600 ml 1320 ml Output Total 1 ml Balance 480 ml 600 ml 1319 ml Intake Oral 480 ml 600 ml 1320 ml Output Urine Total 1 ml # Voids 3 3 # Bowel Movements 3 4 Imaging Last Impressions Cholangiopancreatography MRI 06/17/17 0849 Signed Impressions: Service Date/Time: June 08:24 - CONCLUSION: 1. Complex cystic lesion centered within the pancreatic head measuring up to 6.9 cm. It has mass effect on the surrounding structures but is not causing any bile duct or pancreatic duct obstruction and does not appear to cause any gastric outlet obstruction. 2. The cystic lesion demonstrates mural nodules possibly with hemosiderin. It contains no septations. The top 2 differential diagnostic considerations include pancreatic pseudocyst or mucinous cystic neoplasm. A pseudocyst is favored given the mildly thick wall and lack of septations. However, correlate with clinical history to evaluate for any known history of pancreatitis. Suggest gastroenterology consultation as this lesion will likely need endoscopic ultrasound cyst aspiration for more definitive characterization. Niko Robertson MD Objective Remarks GENERAL: This is a well-nourished, well-developed patient, in no apparent distress. SKIN: Many areas of bruising scattered throughout the body including her back, trunk, bilateral arms, bilateral lower extremities and ankles. In various stages of healing. There appears to be bruising in the shape of a hand possibly with finger imprints along the patients posterior right shoulder. HEAD: Atraumatic. Normocephalic. No temporal or scalp tenderness. EYES: Pupils equal round and reactive. Extraocular motions intact. No scleral icterus. No injection or drainage. ENT: Nose without bleeding, purulent drainage or septal hematoma. Throat without erythema, tonsillar hypertrophy or exudate. Uvula midline. Airway patent. NECK: Trachea midline. No JVD or lymphadenopathy. Supple, nontender, no meningeal signs. CARDIOVASCULAR: Regular rate and rhythm without murmurs, gallops, or rubs. RESPIRATORY: Clear to auscultation. Breath sounds equal bilaterally. No wheezes , rales, or rhonchi. GASTROINTESTINAL: Abdomen soft, non-tender, nondistended. No hepato-splenomegaly , or palpable masses. No guarding. MUSCULOSKELETAL: 2+ edema of bilateral lower extremities up to mid tibias. No joint tenderness, effusion, or edema noted. No calf tenderness. Negative Homans sign bilaterally. NEUROLOGICAL: Awake and alert. Cranial nerves II through XII intact. Motor and sensory grossly within normal limits. Five out of 5 muscle strength in all muscle groups. Normal speech. Procedures S/P Endoscopic ultrasound with FNA for Large pancreatic head cyst causing compression 06/18/[address] Jackson A/P Problem List: (1) Unspecified psychosis ICD Code: F29 - Unspecified psychosis not due to a substance or known physiological condition (2) Hyponatremia ICD Code: E87.1 - Hypo-osmolality and hyponatremia (3) Hypertension ICD Code: I10 - Essential (primary) hypertension (4) Nutrition, metabolism, and development symptoms ICD Code: R63.8 - Other symptoms and signs concerning food and fluid intake Status: Acute (5) H/O ETOH abuse ICD Code: Z87.898 - Personal history of other specified conditions Assessment and Plan 61-year-old female being admitted with AMS, UTI, acute renal insufficiency, and markedly elevated LFTs. Abnormal LFTs 2/2 EtOH use S/P Endoscopic ultrasound with FNA for Large pancreatic head cyst causing compression 06/18/[address] Jackson LFTs markedly elevated, with AST > 2xALT Total bilirubin 2.3 INR1.2 Patient is known to have a history of alcohol abuse Abdomen/pelvis CT showing 4mm calculus of the left renal collecting system at the UPJ however without significant hydronephrosis; 6.9 cm cystic mass in the head of the pancreas; hypodense area measuring 52 cm in the left hepatic lobe Gastroenterology consulted appreciate recommendations, ff Further work up is pending UTI (urinary tract infection) UA with large LE, many wbc clumps, mod bacteria Urine culture however normal chadd, DC antibiotic Acute renal failure Cr 2.16 on admission, baseline ~1.0. Consider pre-renal due to dehydration, no evidence of hydronephrosis on CT Received NS at 100 cc/hr, kidney function back at baseline, monitor Hyponatremia Na noted to be 130 on admission. Monitor closely Altered mental status. Resolving Poss 2/2 medication induced, toxic metabolic Appreciate psychiatry consultation Urine drug screen positive for amphetamines, patient does take Adderall H/O ETOH abuse [facility] protocol IV rally pack Monitor clinically Hypertension BP within normal limits on admission. Restarting home medications as appropriate, patient takes amlodipine 10 mg daily , metoprolol 50 mg once daily Monitor BP and adjust meds as need. DVT ppx ambulation avoid mechanical or chemoprophylaxis at this time as patient with easy bruising Discussed Condition With patient, nurse Janki Curtis MD Jun 18, 2017 07:51
[2017-06-18] MEDS ORDERED: METOPROLOL TARTRATE 25 MG TAB PO PRN (08:15)
[2017-06-18] MEDS ORDERED: SODIUM CHLORID 0.9% 500 ML IV PRN (08:15)
[2017-06-18] MEDS ORDERED: CHLORHEXIDINE GLUCONATE 2 % 1 PACK (2 CLOTHS) TOPICAL PRN (08:15)
[2017-06-18] MEDS ORDERED: INSULIN HUMAN REGULAR 1,000 UNITS/10 ML VIAL SQ PRN (08:15)
[2017-06-18] MEDS ORDERED: LACTATED RINGER'S 1000 ML IV PRN (08:15)
[2017-06-18] MEDS ORDERED: POVIDONE IODINE 5% (ANTISEPSIS KIT) 4 APPLICATIONS EACH NARE PRN (08:15)
[2017-06-18] MEDS: NICOTINE 21 MG/24 HR PATCH T-DERMAL SCH (09:00)
[2017-06-18] MEDS: DOCUSATE SODIUM 50 MG/SENNA 8.6 MG TAB PO SCH ×2 (09:00→21:00)
--- NOTE | 2017-06-18 09:04 | PD.PROCEDR ---
GI Procedure PROCEDURE PERFORMED Endoscopic ultrasound with FNA INDICATION FOR PROCEDURE Large pancreatic head cyst causing compression PROCEDURE: The procedure, risks and benefits were discussed with Ms. Delcid and informed consent was obtained. Anesthesia sedated her with Diprivan. She was placed in the left lateral decubitus position. Endoscopic ultrasound: The Pentax videoscope was introduced through the oropharynx and advanced to the second portion of the duodenum. FINDINGS: There was a large 4 x 6 cm pancreatic head cyst this was a simple cyst a 19- gauge needle was inserted with ease bilious fluid was noted to be coming out the cyst was completely drained and the fluid was sent for analysis Pancreatic parenchyma appeared to be unremarkable Pancreatic duct not dilated and within normal limits No lymphadenopathy noted Patient noted to be on antibiotics ESTIMATED BLOOD LOSS: None SPECIMENS REMOVED: Pancreatic cyst fluid COMPLICATIONS: None IMPRESSION: Simple pancreatic cyst most likely to be either a pseudocyst or most likely bilious collection PLAN: Await fluid analysis Continue with supportive care Brandon Jackson MD Jun 18, 2017 09:03
[2017-06-18] MEDS ORDERED: DO NOT ADM ANY ANTICOAGULANT DRUGS PRN (09:12)
[2017-06-18 09:50] VITALS: BP 136/62; PULSE 83; RESP 20; TEMP 98.1; O2SAT 94
[2017-06-18] MEDS: HALOPERIDOL 2 MG TAB PO SCH ×2 (10:17→21:05)
[2017-06-18] MEDS: buPROPion HCL 150 MG SUSTAINED RELEASE TAB PO SCH (10:17)
[2017-06-18] MEDS: ASPIRIN 81 MG CHEW TAB PO SCH (10:17)
[2017-06-18] MEDS: ATORVASTATIN 40 MG TAB PO SCH (10:17)
[2017-06-18] MEDS: cefTRIAXone 1,000 MG/NS 100 ML IV SCH ×2 (10:18)
[2017-06-18 11:00] VITALS: BP 101/50; PULSE 87; RESP 20; TEMP 98.2; O2SAT 97
--- NOTE | 2017-06-18 12:04 | HHI.PYPN ---
Subjective Remarks Seen for follow-up, chart reviewed. Discussion she staff reported the patient has biopsy of [place] scheduled this morning, noted to have some diarrhea and confusion with visual hallucinations last evening. Patient found sitting in hospital bed finishing lunch noted to be calm and cooperative today. Patient noted to be somewhat tearful and dysphoric during interview. Patient states that she is feeling "okay", slept well, denies any recent visual hallucinations today, alert and oriented 3. Patient reports feeling very depressed radio 10 out of 10 (10 being at its worse), feeling helpless and hopeless but denies any suicide ideations at this time. Patient is agreeable to engage in rehabilitation program for alcohol use upon discharge. Review of Systems Except as stated in HPI: all other systems reviewed are Neg Mental Status Examination Appearance: Disheveled Consciousness: Alert Orientation: Person, Place, Date/Time Speech: Unremarkable Language: Adequate Fund of Knowledge: Inadequate Attention and Concentration: Adequate Memory: Impaired Mood: Sad Affect: Sad, Other (tearful) Thought Process & Associations: Linear Thought Content: Hallucinations, Delusional Hallucination Type: Visual Delusion Type: Paranoid Suicidal Ideation: No Suicidal Plan: No Suicidal Intention: No Homicidal Ideation: No Homicidal Plan: No Homicidal Intention: No Insight: Poor Judgment: Poor Results Labs Labs reviewed. Test 06/17/17 12:33 06/18/17 08:52 Hepatitis A IgM Antibody NEGATIVE Hepatitis B Surface Antigen NEGATIVE Hepatitis B Core IgM Antibody NEGATIVE Hepatitis C Antibody NEGATIVE Vitals/IOs Vital Signs Date Time Temp Pulse Resp B/P (MAP) Pulse Ox O2 Delivery O2 Flow Rate FiO2 06/18/17 09:42 97.8 84 20 110/57 (74) 97 Nasal Cannula 2 Intake and Output 06/18/17 06/18/17 06/19/17 08:00 16:00 00:00 Intake Total 1320 ml Output Total 1 ml Balance 1319 ml Assessment & Plan Problem List: (1) Unspecified psychosis ICD Codes: F29 - Unspecified psychosis not due to a substance or known physiological condition Assessment & Plan Patient at this time continues to endorse depressive symptoms but denies any suicidal ideations at this time. Patient continues to be somewhat confused about recent events that brought to the hospital. Patient noted to be tangential at times with staff. Continue current treatment. Patient started this yesterday. Patient to be referred to rehabilitation program for alcohol use upon discharge. Recommendations as per primary medical team. Discharge planning in progress Justification for Cont. Inpt. At risk for further decompensation if at lower level of care Discharge Planning Patient to return home once psychiatrically stable. Shaq Gonzalez MD Jun 18, 2017 12:04
[2017-06-18 17:41] LABS: HEMOGLOBIN A1b 1.5 %; HEMOGLOBIN Ao 85.9 %; HEMOGLOBIN F 0.3 %; HEMOGLOBIN LA1C 2.1 %; HEMOGLOBIN P3 3.8 %
[2017-06-18 17:52] LABS: ANION GAP 8 MEQ/L (5-15)
[2017-06-18 17:54] LABS: BICARBONATE 31.5 MEQ/L (21.0-32.0); BLOOD UREA NITROGEN 17 MG/DL (7-18); CHLORIDE 102 MEQ/L (98-107); GLOMERULAR FILTRATION RATE 61 ML/MIN (>89); HDL CHOLESTEROL 14.9 MG/DL (40.0-60.0); LDL CHOLESTEROL 92 MG/DL (0-99); SODIUM (NA) 141 MEQ/L (136-145)
[2017-06-18 18:00] LABS: POTASSIUM 2.5 MEQ/L (3.5-5.1)
[2017-06-18 18:34] VITALS: BP 112/59; PULSE 88; RESP 19; TEMP 98.9; O2SAT 97
[2017-06-18] MEDS ORDERED: POTASSIUM CHLORIDE 20 MEQ CONTROLLED RELEASE TAB PO ONE (19:45)
[2017-06-18] MEDS: REMOVE OLD NICOTINE PATCH T-DERMAL SCH (21:00)
[2017-06-18] MEDS: ACETAMINOPHEN/HYDROcodone 325 MG/5 MG TAB PO PRN (21:16)
[2017-06-19 06:24] VITALS: BP 146/65; PULSE 92; RESP 16; TEMP 97.8; O2SAT 97
--- NOTE | 2017-06-19 07:42 | HHI.PR ---
Subjective Remarks Tolerates food. No fever ro chills. No abd pain.No n/v/d/c. Feels imprpving. Bruising are healing. Objective Vitals Vital Signs Date Time Temp Pulse Resp B/P (MAP) Pulse Ox O2 Delivery O2 Flow Rate FiO2 06/19/17 06:24 97.8 92 16 146/65 (92) 97 06/18/17 18:34 98.9 88 19 112/59 (76) 97 06/18/17 11:00 98.2 87 20 101/50 (67) 97 06/18/17 09:50 98.1 83 20 136/62 (86) 94 06/18/17 09:42 97.8 84 20 110/57 (74) 97 Nasal Cannula 2 06/18/17 09:30 84 20 110/57 (74) 97 Nasal Cannula 2 06/18/17 09:15 84 20 122/57 (78) 97 Nasal Cannula 2 06/18/17 09:12 97.8 83 20 122/58 (79) 93 Nasal Cannula 2 I/O 06/18/17 06/18/17 06/18/17 06/19/17 06/19/17 06/19/17 07:00 15:00 23:00 07:00 15:00 23:00 Intake Total 1320 ml 300 ml 3480 ml 240 ml Output Total 1 ml 3 ml Balance 1319 ml 300 ml 3477 ml 240 ml Intake Oral 1320 ml 3480 ml 240 ml Other 300 ml Output Urine Total 1 ml Stool Total 3 ml # Voids 3 7 1 # Bowel Movements 4 Result Diagram: 06/18/17 1641 Objective Remarks GENERAL: This is a well-nourished, well-developed patient, in no apparent distress. SKIN: Many areas of bruising scattered throughout the body including her back, trunk, bilateral arms, bilateral lower extremities and ankles. In various stages of healing. There appears to be bruising in the shape of a hand possibly with finger imprints along the patients posterior right shoulder. HEAD: Atraumatic. Normocephalic. No temporal or scalp tenderness. EYES: Pupils equal round and reactive. Extraocular motions intact. No scleral icterus. No injection or drainage. ENT: Nose without bleeding, purulent drainage or septal hematoma. Throat without erythema, tonsillar hypertrophy or exudate. Uvula midline. Airway patent. NECK: Trachea midline. No JVD or lymphadenopathy. Supple, nontender, no meningeal signs. CARDIOVASCULAR: Regular rate and rhythm without murmurs, gallops, or rubs. RESPIRATORY: Clear to auscultation. Breath sounds equal bilaterally. No wheezes , rales, or rhonchi. GASTROINTESTINAL: Abdomen soft, non-tender, nondistended. No hepato-splenomegaly , or palpable masses. No guarding. MUSCULOSKELETAL: 2+ edema of bilateral lower extremities up to mid tibias. No joint tenderness, effusion, or edema noted. No calf tenderness. Negative Homans sign bilaterally. NEUROLOGICAL: Awake and alert. Cranial nerves II through XII intact. Motor and sensory grossly within normal limits. Five out of 5 muscle strength in all muscle groups. Normal speech. Procedures S/P Endoscopic ultrasound with FNA for Large pancreatic head cyst causing compression 06/18/[address] Jakcson A/P Problem List: (1) Unspecified psychosis ICD Code: F29 - Unspecified psychosis not due to a substance or known physiological condition (2) Hyponatremia ICD Code: E87.1 - Hypo-osmolality and hyponatremia (3) Hypertension ICD Code: I10 - Essential (primary) hypertension (4) Nutrition, metabolism, and development symptoms ICD Code: R63.8 - Other symptoms and signs concerning food and fluid intake Status: Acute (5) H/O ETOH abuse ICD Code: Z87.898 - Personal history of other specified conditions Assessment and Plan 61-year-old female being admitted with AMS, UTI, acute renal insufficiency, and markedly elevated LFTs. Abnormal LFTs 2/2 EtOH use S/P Endoscopic ultrasound with FNA for Large pancreatic head cyst causing compression 06/18/[address] Jackson LFTs markedly elevated, with AST > 2xALT Total bilirubin 2.3 INR1.2 Patient is known to have a history of alcohol abuse Abdomen/pelvis CT showing 4mm calculus of the left renal collecting system at the [facility] however without significant hydronephrosis; 6.9 cm cystic mass in the head of the pancreas; hypodense area measuring 52 cm in the left hepatic lobe Gastroenterology consulted appreciate recommendations, ff Further work up is pending UTI (urinary tract infection) UA with large LE, many wbc clumps, mod bacteria Urine culture however normal chadd, DC antibiotic Acute renal failure Cr 2.16 on admission, baseline ~1.0. Consider pre-renal due to dehydration, no evidence of hydronephrosis on CT Received NS at 100 cc/hr, kidney function back at baseline, monitor Hyponatremia Na noted to be 130 on admission. Monitor closely Altered mental status. Resolving Poss 2/2 medication induced, toxic metabolic Appreciate psychiatry consultation Urine drug screen positive for amphetamines, patient does take Adderall H/O ETOH abuse CIWA protocol IV rally pack Monitor clinically Hypertension BP within normal limits on admission. Restarting home medications as appropriate, patient takes amlodipine 10 mg daily , metoprolol 50 mg once daily Monitor BP and adjust meds as need. DVT ppx ambulation avoid mechanical or chemoprophylaxis at this time as patient with easy bruising Discussed Condition With patient, nurse Janki Curtis MD Jun 19, 2017 07:42
[2017-06-19] MEDS: DOCUSATE SODIUM 50 MG/SENNA 8.6 MG TAB PO SCH ×2 (08:37→20:46)
[2017-06-19] MEDS: ATORVASTATIN 40 MG TAB PO SCH (08:37)
[2017-06-19] MEDS: HALOPERIDOL 2 MG TAB PO SCH ×2 (08:37→20:46)
[2017-06-19] MEDS: NICOTINE 21 MG/24 HR PATCH T-DERMAL SCH (08:38)
[2017-06-19] MEDS: ASPIRIN 81 MG CHEW TAB PO SCH (08:38)
[2017-06-19] MEDS: cefTRIAXone 1,000 MG/NS 100 ML IV SCH ×2 (08:38)
[2017-06-19] MEDS: buPROPion HCL 150 MG SUSTAINED RELEASE TAB PO SCH ×2 (08:38→20:47)
[2017-06-19 08:40] LABS: HEMATOCRIT 35.3 % (35.0-46.0); MEAN CELL VOLUME 98.3 FL (80.0-100.0); MEAN CORPUSCULAR HEMOGLOBIN 32.9 PG (27.0-34.0); MEAN CORPUSCULAR HGB CONC 33.4 % (32.0-36.0); PLATELET COUNT 303 TH/MM3 (150-450); RED BLOOD COUNT 3.59 MIL/MM3 (4.00-5.30); RED CELL DISTRIBUTION WIDTH 18.2 % (11.6-17.2); REVIEW FLAG FINAL; WHITE BLOOD COUNT 5.9 TH/MM3 (4.0-11.0)
[2017-06-19] MEDS: ACETAMINOPHEN/HYDROcodone 325 MG/5 MG TAB PO PRN ×2 (08:45→19:27)
--- NOTE | 2017-06-19 09:03 | HHI.PYPN ---
Subjective Remarks Patient seen for follow-up, chart review. Discussion she staff reported the patient had, cooperative denying any visual hallucinations recently. Patient found sitting in hospital bed eating breakfast patient states feeling "better" continues report feeling depressed, 9 out of 10 (10 being is words) is but denies any suicide ideations at this time. Patient denies any visual hallucinations stating "I haven't seen little man recently". Denies any auditory hallucinations. Patient states that she is tolerating her medications well, sleep has been "so-so" but states that she plans on engaging in rehabilitation program for alcohol use post discharge. Review of Systems Except as stated in HPI: all other systems reviewed are Neg Mental Status Examination Appearance: Disheveled Consciousness: Alert Orientation: Person, Place, Date/Time Speech: Unremarkable Language: Adequate Fund of Knowledge: Inadequate Attention and Concentration: Adequate Memory: Impaired Mood: Sad Affect: Sad, Other (slightly tearful) Thought Process & Associations: Linear Thought Content: Hallucinations (denies today), Delusional Hallucination Type: Visual (denies today) Delusion Type: None Suicidal Ideation: No Suicidal Plan: No Suicidal Intention: No Homicidal Ideation: No Homicidal Plan: No Homicidal Intention: No Insight: Fair Judgment: Impulsive Results Labs Labs reviewed. Test 06/18/17 16:41 06/19/17 08:16 Blood Urea Nitrogen 17 MG/DL Creatinine 0.94 MG/DL Random Glucose 82 MG/DL Calcium Level 8.5 MG/DL Sodium Level 141 MEQ/L Potassium Level 2.5 MEQ/L Chloride Level 102 MEQ/L Carbon Dioxide Level 31.5 MEQ/L Anion Gap 8 MEQ/L Estimat Glomerular Filtration Rate 61 ML/MIN Hemoglobin A1c 5.1 % Triglycerides Level 189 MG/DL Cholesterol Level 145 MG/DL LDL Cholesterol 92 MG/DL HDL Cholesterol 14.9 MG/DL Cholesterol/HDL Ratio 9.73 RATIO White Blood Count 5.9 TH/MM3 Red Blood Count 3.59 MIL/MM3 Hemoglobin 11.8 GM/DL Hematocrit 35.3 % Mean Corpuscular Volume 98.3 FL Mean Corpuscular Hemoglobin 32.9 PG Mean Corpuscular Hemoglobin Concent 33.4 % Red Cell Distribution Width 18.2 % Platelet Count 303 TH/MM3 Mean Platelet Volume 7.9 FL Vitals/IOs Vital Signs Date Time Temp Pulse Resp B/P (MAP) Pulse Ox O2 Delivery O2 Flow Rate FiO2 12/9/17 06:24 97.8 92 16 146/65 (92) 97 06/18/17 09:42 Nasal Cannula 2 Intake and Output 06/19/17 06/19/17 06/19/17 07:59 15:59 23:59 Intake Total 240 ml Balance 240 ml Assessment & Plan Problem List: (1) Unspecified psychosis ICD Codes: F29 - Unspecified psychosis not due to a substance or known physiological condition Assessment & Plan Patient at this time continues to report feeling depressed but denies any suicidal ideations at this time patient continues to be noted to be somewhat dysphoric and tearful at times. We'll increase Wellbutrin SR to 150 mg by mouth twice a day, continue Haldol 2 mg by mouth twice a day for psychosis. Continue recommendations as per primary medical team. Discharge planning in progress Justification for Cont. Inpt. At risk for further decompensation if at lower level of care Discharge Planning Patient to return back to her residence was psychiatrically stable Shaq Gonzalez MD Jun 19, 2017 09:03
[2017-06-19 09:22] LABS: ALKALINE PHOSPHATASE 100 U/L (45-117); ALT (GPT) 324 U/L (10-53); ANION GAP 8 MEQ/L (5-15); AST (GOT) 196 U/L (15-37); BICARBONATE 33.3 MEQ/L (21.0-32.0); BLOOD UREA NITROGEN 14 MG/DL (7-18); CHLORIDE 101 MEQ/L (98-107); GLOMERULAR FILTRATION RATE 50 ML/MIN (>89); POTASSIUM 3.3 MEQ/L (3.5-5.1); SODIUM (NA) 142 MEQ/L (136-145); TOTAL BILIRUBIN ADULT 0.7 MG/DL (0.2-1.0)
--- NOTE | 2017-06-19 09:32 | HHI.GIFU ---
Subjective Remarks Pt resting in bed, no complaints. Ate breakfast. (Leonarda Oh) Objective Vitals I&O Vital Signs Date Time Temp Pulse Resp B/P (MAP) Pulse Ox O2 Delivery O2 Flow Rate FiO2 06/19/17 06:24 97.8 92 16 146/65 (92) 97 06/18/17 18:34 98.9 88 19 112/59 (76) 97 06/18/17 11:00 98.2 87 20 101/50 (67) 97 06/18/17 09:50 98.1 83 20 136/62 (86) 94 06/18/17 09:42 97.8 84 20 110/57 (74) 97 Nasal Cannula 2 06/18/17 09:30 84 20 110/57 (74) 97 Nasal Cannula 2 I/O 06/18/17 06/18/17 06/18/17 06/19/17 06/19/17 06/19/17 06:59 14:59 22:59 06:59 14:59 22:59 Intake Total 1320 ml 300 ml 3480 ml 240 ml Output Total 1 ml 3 ml Balance 1319 ml 300 ml 3477 ml 240 ml Intake Oral 1320 ml 3480 ml 240 ml Other 300 ml Output Urine Total 1 ml Stool Total 3 ml # Voids 3 7 1 # Bowel Movements 4 Laboratory Laboratory Tests Test 06/18/17 16:41 06/19/17 08:16 Blood Urea Nitrogen 17 14 Creatinine 0.94 1.11 Random Glucose 82 165 Calcium Level 8.5 8.8 Sodium Level 141 142 Potassium Level 2.5 3.3 Chloride Level 102 101 Carbon Dioxide Level 31.5 33.3 Anion Gap 8 8 Estimat Glomerular Filtration Rate 61 50 Hemoglobin A1c 5.1 Triglycerides Level 189 Cholesterol Level 145 LDL Cholesterol 92 HDL Cholesterol 14.9 Cholesterol/HDL Ratio 9.73 White Blood Count 5.9 Red Blood Count 3.59 Hemoglobin 11.8 Hematocrit 35.3 Mean Corpuscular Volume 98.3 Mean Corpuscular Hemoglobin 32.9 Mean Corpuscular Hemoglobin Concent 33.4 Red Cell Distribution Width 18.2 Platelet Count 303 Mean Platelet Volume 7.9 Total Protein 6.2 Albumin 2.4 Alkaline Phosphatase 100 Aspartate Amino Transf (AST/SGOT) 196 Alanine Aminotransferase (ALT/SGPT) 324 Total Bilirubin 0.7 Lipase 762 Imaging Last Impressions Cholangiopancreatography MRI 12/7/17 0849 Signed Impressions: Service Date/Time: June 08:24 - CONCLUSION: 1. Complex cystic lesion centered within the pancreatic head measuring up to 6.9 cm. It has mass effect on the surrounding structures but is not causing any bile duct or pancreatic duct obstruction and does not appear to cause any gastric outlet obstruction. 2. The cystic lesion demonstrates mural nodules possibly with hemosiderin. It contains no septations. The top 2 differential diagnostic considerations include pancreatic pseudocyst or mucinous cystic neoplasm. A pseudocyst is favored given the mildly thick wall and lack of septations. However, correlate with clinical history to evaluate for any known history of pancreatitis. Suggest gastroenterology consultation as this lesion will likely need endoscopic ultrasound cyst aspiration for more definitive characterization. Niko Robertson MD Physical Exam HEENT: PERRL; normocephalic; atraumatic; no jaundice. CHEST: CTA CARDIAC: RRR ABDOMEN: Soft, distended, nontender; no hepatosplenomegaly; bowel sounds are present in all four quadrants. EXTREMITIES: No clubbing, cyanosis, or edema. SKIN: Normal; no rash; no jaundice. 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 (Leonarda Oh [facility]) Assessment and Plan Plan Assessment - Pancreatic mass- CT abdomen/pelvis W/O IV contrast (06/16) --> 4mm calculus in the left renal collecting system at the ureteropelvic junction without significant hydronephrosis. 6.9cm cystic mass in the head of the pancreas. Hypodense area within the liver adjacent to the gallbladder fossa. This does not have a typical appearance for a mass and may represent focal hepatic injury following cholecystectomy. Right nephrolithiasis. MRCP noted , cystic mass. s/p EUS 06/18/17 found simple pancreatic cyst, pseudocyst vs bilious fluid collection. fluid analysis pending - loose stools - takes lomotil at home immodium prn -elevated LFTs - hx etoh abuse. w/upending. hep panel negative. LFTs trending down PLAN - await cyst fluid analysis - heart healthy diet - immodium prn - Supportive care - monitor labs This patient has been seen and examined by myself and and this note is written on his behalf (Leonarda Oh) Plan patient was seen and examined, agree with above note, FU Bx from EUS, patient comfortable without any new complaints (Madai Collins MD) Leonarda Oh Jun 19, 2017 09:32 Madai Collins MD Jun 19, 2017 18:33
[2017-06-19 18:00] VITALS: BP 128/62; TEMP 98; O2SAT 97
[2017-06-19] MEDS: LOPERAMIDE HCL 2 MG CAP PO PRN (20:47)
[2017-06-19] MEDS: REMOVE OLD NICOTINE PATCH T-DERMAL SCH (20:48)
[2017-06-20 06:01] VITALS: BP 152/87; PULSE 92; RESP 17; TEMP 98.4; O2SAT 97
--- NOTE | 2017-06-20 07:50 | HHI.PR ---
Subjective Remarks In bed appears depressed. Per nurse she is not getting out of the bed. Patient is telling me she feels depressed. She has no pain at this time. K is low. Patient not eating much. No n/v/d/c. No abd pain. Objective Vitals Vital Signs Date Time Temp Pulse Resp B/P (MAP) Pulse Ox O2 Delivery O2 Flow Rate FiO2 06/20/17 06:01 98.4 92 17 152/87 (108) 97 06/19/17 18:00 98.0 128/62 (84) 97 I/O 06/19/17 06/19/17 06/19/17 06/20/17 06/20/17 06/20/17 07:00 15:00 23:00 07:00 15:00 23:00 Intake Total 240 ml 240 ml Balance 240 ml 240 ml Intake Oral 240 ml 240 ml # Voids 1 2 Result Diagram: 06/19/17 0816 06/19/17 0816 Imaging Last Impressions Cholangiopancreatography MRI 06/17/17 0849 Signed Impressions: Service Date/Time: June 08:24 - CONCLUSION: 1. Complex cystic lesion centered within the pancreatic head measuring up to 6.9 cm. It has mass effect on the surrounding structures but is not causing any bile duct or pancreatic duct obstruction and does not appear to cause any gastric outlet obstruction. 2. The cystic lesion demonstrates mural nodules possibly with hemosiderin. It contains no septations. The top 2 differential diagnostic considerations include pancreatic pseudocyst or mucinous cystic neoplasm. A pseudocyst is favored given the mildly thick wall and lack of septations. However, correlate with clinical history to evaluate for any known history of pancreatitis. Suggest gastroenterology consultation as this lesion will likely need endoscopic ultrasound cyst aspiration for more definitive characterization. Niko Robertson MD Objective Remarks GENERAL: This is a well-nourished, well-developed patient, in no apparent distress. SKIN: Many areas of bruising scattered throughout the body including her back, trunk, bilateral arms, bilateral lower extremities and ankles. In various stages of healing. There appears to be bruising in the shape of a hand possibly with finger imprints along the patients posterior right shoulder. HEAD: Atraumatic. Normocephalic. No temporal or scalp tenderness. EYES: Pupils equal round and reactive. Extraocular motions intact. No scleral icterus. No injection or drainage. ENT: Nose without bleeding, purulent drainage or septal hematoma. Throat without erythema, tonsillar hypertrophy or exudate. Uvula midline. Airway patent. NECK: Trachea midline. No JVD or lymphadenopathy. Supple, nontender, no meningeal signs. CARDIOVASCULAR: Regular rate and rhythm without murmurs, gallops, or rubs. RESPIRATORY: Clear to auscultation. Breath sounds equal bilaterally. No wheezes , rales, or rhonchi. GASTROINTESTINAL: Abdomen soft, non-tender, nondistended. No hepato-splenomegaly , or palpable masses. No guarding. MUSCULOSKELETAL: 2+ edema of bilateral lower extremities up to mid tibias. No joint tenderness, effusion, or edema noted. No calf tenderness. Negative Homans sign bilaterally. NEUROLOGICAL: Awake and alert. Cranial nerves II through XII intact. Motor and sensory grossly within normal limits. Five out of 5 muscle strength in all muscle groups. Normal speech. Procedures S/P Endoscopic ultrasound with FNA for Large pancreatic head cyst causing compression 06/18/[address] Jackson A/P Problem List: (1) Unspecified psychosis ICD Code: F29 - Unspecified psychosis not due to a substance or known physiological condition (2) Hyponatremia ICD Code: E87.1 - Hypo-osmolality and hyponatremia (3) Hypertension ICD Code: I10 - Essential (primary) hypertension (4) Nutrition, metabolism, and development symptoms ICD Code: R63.8 - Other symptoms and signs concerning food and fluid intake Status: Acute (5) H/O ETOH abuse ICD Code: Z87.898 - Personal history of other specified conditions Assessment and Plan 61-year-old female being admitted with AMS, UTI, acute renal insufficiency, and markedly elevated LFTs. Abnormal LFTs 2/2 EtOH use S/P Endoscopic ultrasound with FNA for Large pancreatic head cyst causing compression 06/18/[address] Jackson LFTs markedly elevated, with AST > 2xALT Total bilirubin 2.3 INR1.2 Patient is known to have a history of alcohol abuse Abdomen/pelvis CT showing 4mm calculus of the left renal collecting system at the [facility] however without significant hydronephrosis; 6.9 cm cystic mass in the head of the pancreas; hypodense area measuring 52 cm in the left hepatic lobe Gastroenterology consulted appreciate recommendations, ff Further work up is pending UTI (urinary tract infection) UA with large LE, many wbc clumps, mod bacteria Urine culture however normal chadd, DC antibiotic Acute renal failure Cr 2.16 on admission, baseline ~1.0. Consider pre-renal due to dehydration, no evidence of hydronephrosis on CT Received NS at 100 cc/hr, kidney function back at baseline, monitor Hyponatremia Na noted to be 130 on admission. Monitor closely. Hypokalemia, persistent K at 2.7. Replace with KCL 80 mEq, Start supplement 20 meq bid.Monitor closely. Patient has decreased PO intake. Altered mental status. Resolving Poss 2/2 medication induced, toxic metabolic Appreciate psychiatry consultation Urine drug screen positive for amphetamines, patient does take Adderall H/O ETOH abuse CIWA protocol IV rally pack Monitor clinically Hypertension BP within normal limits on admission. Restarting home medications as appropriate, patient takes amlodipine 10 mg daily , metoprolol 50 mg once daily Monitor BP and adjust meds as need. DVT ppx ambulation avoid mechanical or chemoprophylaxis at this time as patient with easy bruising Discussed Condition With patient, nurse Janki Curtis MD Jun 20, 2017 07:50
[2017-06-20] MEDS ORDERED: POTASSIUM CHLORIDE 10 MEQ CONTROLLED RELEASE TAB PO ONE ×2 (08:00→12:45)
--- NOTE | 2017-06-20 08:13 | HHI.PYPN ---
Subjective Remarks Patient seen for follow-up, chart reviewed. Discussion was 30 staff reported the patient slept well, with no behavioral issues. Patient was found lying in hospital bed asleep was able to wake up to interact with interview policy writer typist today. Patient stated her mood as "good", reports having slept well the problem eating and drinking, reports that her depression is "so-so" but denies any suicidal ideations. Patient denies any visual or auditory hallucinations and states that she no longer has been seeing "the little man" that she wanted stated initially during her admission. Discussion about engaging in outpatient rehabilitation program along with her outpatient follow-up was discussed which she agreed to. Review of Systems Except as stated in HPI: all other systems reviewed are Neg Mental Status Examination Appearance: Disheveled Consciousness: Alert Orientation: Person, Place, Date/Time Speech: Unremarkable Language: Adequate Fund of Knowledge: Inadequate Attention and Concentration: Adequate Memory: Impaired Mood: Sad (less so today) Affect: Sad Thought Process & Associations: Linear Thought Content: Hallucinations (denies today) Hallucination Type: Visual (denies today) Delusion Type: None Suicidal Ideation: No Suicidal Plan: No Suicidal Intention: No Homicidal Ideation: No Homicidal Plan: No Homicidal Intention: No Insight: Fair Judgment: Impulsive Results Labs Labs reviewed. Test 06/19/17 08:16 White Blood Count 5.9 TH/MM3 Red Blood Count 3.59 MIL/MM3 Hemoglobin 11.8 GM/DL Hematocrit 35.3 % Mean Corpuscular Volume 98.3 FL Mean Corpuscular Hemoglobin 32.9 PG Mean Corpuscular Hemoglobin Concent 33.4 % Red Cell Distribution Width 18.2 % Platelet Count 303 TH/MM3 Mean Platelet Volume 7.9 FL Blood Urea Nitrogen 14 MG/DL Creatinine 1.11 MG/DL Random Glucose 165 MG/DL Total Protein 6.2 GM/DL Albumin 2.4 GM/DL Calcium Level 8.8 MG/DL Alkaline Phosphatase 100 U/L Aspartate Amino Transf (AST/SGOT) 196 U/L Alanine Aminotransferase (ALT/SGPT) 324 U/L Total Bilirubin 0.7 MG/DL Sodium Level 142 MEQ/L Potassium Level 3.3 MEQ/L Chloride Level 101 MEQ/L Carbon Dioxide Level 33.3 MEQ/L Anion Gap 8 MEQ/L Estimat Glomerular Filtration Rate 50 ML/MIN Lipase 762 U/L Vitals/IOs Vital Signs Date Time Temp Pulse Resp B/P (MAP) Pulse Ox O2 Delivery O2 Flow Rate FiO2 06/20/17 06:01 98.4 92 17 152/87 (108) 97 06/18/17 09:42 Nasal Cannula 2 Assessment & Plan Problem List: (1) Unspecified psychosis ICD Codes: F29 - Unspecified psychosis not due to a substance or known physiological condition Assessment & Plan Patient at this time noted to have slightly improved mood, but continues to have electrolyte abnormalities as well as elevated LFTs which medical team is currently following. Patient responding well to current treatment. Continue bupropion SR 150 mg by mouth twice a day for depression, and hospital 2 mg by mouth twice a day for psychosis. Continue recommendations as per primary medical team. Discharge planning in progress Justification for Cont. Inpt. At risk for further decompensation if at lower level of care Discharge Planning Patient to return back to her residence was psychiatrically and medically stable Shaq Gonzalez MD Jun 20, 2017 08:13
[2017-06-20] MEDS: NICOTINE 21 MG/24 HR PATCH T-DERMAL SCH (09:00)
[2017-06-20] MEDS: cefTRIAXone 1,000 MG/NS 100 ML IV SCH ×2 (09:00)
[2017-06-20] MEDS: buPROPion HCL 150 MG SUSTAINED RELEASE TAB PO SCH ×2 (09:59→21:02)
[2017-06-20] MEDS: ACETAMINOPHEN/HYDROcodone 325 MG/5 MG TAB PO PRN ×2 (09:59→21:02)
[2017-06-20] MEDS: HALOPERIDOL 2 MG TAB PO SCH ×2 (09:59→21:01)
[2017-06-20] MEDS: DOCUSATE SODIUM 50 MG/SENNA 8.6 MG TAB PO SCH ×2 (09:59→21:00)
[2017-06-20] MEDS: ATORVASTATIN 40 MG TAB PO SCH (10:00)
[2017-06-20] MEDS: ASPIRIN 81 MG CHEW TAB PO SCH (10:02)
--- NOTE | 2017-06-20 10:07 | HHI.GIFU ---
Subjective Remarks Sitting up in bed, in no apparent distress. Denies abdominal pain. Denies nausea or vomiting. Tolerating diet. (Molly Vora) Objective Vitals I&O Vital Signs Date Time Temp Pulse Resp B/P (MAP) Pulse Ox O2 Delivery O2 Flow Rate FiO2 06/20/17 06:01 98.4 92 17 152/87 (108) 97 06/19/17 18:00 98.0 128/62 (84) 97 I/O 06/19/17 06/19/17 06/19/17 06/20/17 06/20/17 06/20/17 07:00 15:00 23:00 07:00 15:00 23:00 Intake Total 240 ml 240 ml 240 ml Balance 240 ml 240 ml 240 ml Intake Oral 240 ml 240 ml 240 ml # Voids 1 2 Laboratory Laboratory Tests Test 06/18/17 16:41 06/19/17 08:16 Blood Urea Nitrogen 17 MG/DL 14 MG/DL Creatinine 0.94 MG/DL 1.11 MG/DL Random Glucose 82 MG/DL 165 MG/DL Calcium Level 8.5 MG/DL 8.8 MG/DL Sodium Level 141 MEQ/L 142 MEQ/L Potassium Level 2.5 MEQ/L 3.3 MEQ/L Chloride Level 102 MEQ/L 101 MEQ/L Carbon Dioxide Level 31.5 MEQ/L 33.3 MEQ/L Anion Gap 8 MEQ/L 8 MEQ/L Estimat Glomerular Filtration Rate 61 ML/MIN 50 ML/MIN Hemoglobin A1c 5.1 % Triglycerides Level 189 MG/DL Cholesterol Level 145 MG/DL LDL Cholesterol 92 MG/DL HDL Cholesterol 14.9 MG/DL Cholesterol/HDL Ratio 9.73 RATIO White Blood Count 5.9 TH/MM3 Red Blood Count 3.59 MIL/MM3 Hemoglobin 11.8 GM/DL Hematocrit 35.3 % Mean Corpuscular Volume 98.3 FL Mean Corpuscular Hemoglobin 32.9 PG Mean Corpuscular Hemoglobin Concent 33.4 % Red Cell Distribution Width 18.2 % Platelet Count 303 TH/MM3 Mean Platelet Volume 7.9 FL Total Protein 6.2 GM/DL Albumin 2.4 GM/DL Alkaline Phosphatase 100 U/L Aspartate Amino Transf (AST/SGOT) 196 U/L Alanine Aminotransferase (ALT/SGPT) 324 U/L Total Bilirubin 0.7 MG/DL Lipase 762 U/L Imaging Last Impressions Cholangiopancreatography MRI 06/17/17 0849 Signed Impressions: Service Date/Time: June 08:24 - CONCLUSION: 1. Complex cystic lesion centered within the pancreatic head measuring up to 6.9 cm. It has mass effect on the surrounding structures but is not causing any bile duct or pancreatic duct obstruction and does not appear to cause any gastric outlet obstruction. 2. The cystic lesion demonstrates mural nodules possibly with hemosiderin. It contains no septations. The top 2 differential diagnostic considerations include pancreatic pseudocyst or mucinous cystic neoplasm. A pseudocyst is favored given the mildly thick wall and lack of septations. However, correlate with clinical history to evaluate for any known history of pancreatitis. Suggest gastroenterology consultation as this lesion will likely need endoscopic ultrasound cyst aspiration for more definitive characterization. Niko Robertson MD Physical Exam HEENT: Normocephalic; atraumatic; no jaundice. CHEST: CTA CARDIAC: RRR ABDOMEN: Soft, distended, nontender; no hepatosplenomegaly; bowel sounds are present in all four quadrants. EXTREMITIES: No clubbing, cyanosis, or edema. SKIN: Normal; no rash; no jaundice. RING MAKER: No focal deficits; alert and oriented times three. (Molly Vora) Assessment and Plan Plan ASSESSMENT: - Pancreatic mass, CT abdomen/pelvis W/O IV contrast (06/16)--4mm calculus in the left renal collecting system at the ureteropelvic junction without significant hydronephrosis. 6.9cm cystic mass in the head of the pancreas. Hypodense area within the liver adjacent to the gallbladder fossa. This does not have a typical appearance for a mass and may represent focal hepatic injury following cholecystectomy. Right nephrolithiasis. MRCP 06/17/17--1. Complex cystic lesion centered within the pancreatic head measuring up to 6.9 cm. It has mass effect on the surrounding structures but is not causing any bile duct or pancreatic duct obstruction and does not appear to cause any gastric outlet obstruction. 2. The cystic lesion demonstrates mural nodules possibly with hemosiderin. It contains no septations. The top 2 differential diagnostic considerations include pancreatic pseudocyst or mucinous cystic neoplasm. A pseudocyst is favored given the mildly thick wall and lack of septations. However, correlate with clinical history to evaluate for any known history of pancreatitis. Suggest gastroenterology consultation as this lesion will likely need endoscopic ultrasound cyst aspiration for more definitive characterization. S/p EUS 06/18/17--There was a large 4 x 6 cm pancreatic head cyst this was a simple cyst a 19-gauge needle was inserted with ease bilious fluid was noted to be coming out the cyst was completely drained and the fluid was sent for analysis. Simple pancreatic cyst most likely to be either a pseudocyst or most likely bilious collection. Fluid analysis pending. - Loose stools, takes Lomotil at home. Imodium as needed. - Elevated LFTs, history of alcohol abuse. Hepatitis panel negative. 06/19--AST 196, ALT 324 PLAN: - S/P EUS with pancreatic head cyst drainage - Await cyst fluid analysis - Monitor labs - FRANKIE - Imodium as needed - Supportive care - Further recommendations to follow based on results of above Patient seen and examined by Dr. Collins and myself and this note is written on his behalf. (Molly Vora) Physician Comments In changes since yesterday, agree with the above-noted and plan, awaiting biopsy results from the endoscopic ultrasound (Madai Collins MD) Molly Vora Jun 20, 2017 10:07 Madai Collins MD Jun 20, 2017 12:22
[2017-06-20 12:05] LABS: ALKALINE PHOSPHATASE 99 U/L (45-117); ALT (GPT) 234 U/L (10-53); ANION GAP 8 MEQ/L (5-15); AST (GOT) 88 U/L (15-37); BICARBONATE 31.3 MEQ/L (21.0-32.0); BLOOD UREA NITROGEN 12 MG/DL (7-18); CHLORIDE 103 MEQ/L (98-107); GLOMERULAR FILTRATION RATE 58 ML/MIN (>89); SODIUM (NA) 142 MEQ/L (136-145); TOTAL BILIRUBIN ADULT 0.6 MG/DL (0.2-1.0)
[2017-06-20 12:12] LABS: POTASSIUM 2.7 MEQ/L (3.5-5.1)
[2017-06-20 18:45] VITALS: BP 115/58; PULSE 88; RESP 16; TEMP 97.6; O2SAT 98
[2017-06-20] MEDS: LORazepam 1 MG TAB PO PRN ×2 (20:00→21:02)
[2017-06-20] MEDS: REMOVE OLD NICOTINE PATCH T-DERMAL SCH (21:00)
[2017-06-20] MEDS: LOPERAMIDE HCL 2 MG CAP PO PRN (21:01)
[2017-06-20] MEDS: POTASSIUM CHLORIDE 20 MEQ CONTROLLED RELEASE TAB PO SCH (21:02)
[2017-06-21] MEDS: ACETAMINOPHEN/HYDROcodone 325 MG/5 MG TAB PO PRN (05:46)
[2017-06-21] MEDS: LORazepam 1 MG TAB PO PRN (05:46)
[2017-06-21 06:01] VITALS: BP 112/53; PULSE 85; RESP 17; TEMP 98.3; O2SAT 95
[2017-06-21 06:54] LABS: LIPASE BODY FLUID 0 U/L; LIPASE SOURCE PANCREATIC CYST
[2017-06-21] MEDS: ASPIRIN 81 MG CHEW TAB PO SCH (08:43)
[2017-06-21] MEDS: ATORVASTATIN 40 MG TAB PO SCH (08:43)
[2017-06-21] MEDS: POTASSIUM CHLORIDE 20 MEQ CONTROLLED RELEASE TAB PO SCH (08:43)
[2017-06-21] MEDS: DOCUSATE SODIUM 50 MG/SENNA 8.6 MG TAB PO SCH (08:43)
[2017-06-21] MEDS: buPROPion HCL 150 MG SUSTAINED RELEASE TAB PO SCH (08:43)
[2017-06-21] MEDS: HALOPERIDOL 2 MG TAB PO SCH (08:43)
[2017-06-21] MEDS: NICOTINE 21 MG/24 HR PATCH T-DERMAL SCH (08:45)
[2017-06-21] MEDS: cefTRIAXone 1,000 MG/NS 100 ML IV SCH ×2 (09:00)
[2017-06-21 09:41] LABS: AUTOMATED NEUTROPHIL # 3.4 TH/MM3 (1.8-7.7); BASOPHIL # 0.1 TH/MM3 (0-0.2); EOSINOPHIL # 0.1 TH/MM3 (0-0.4); EOSINOPHIL % 0.9 % (0.0-4.0); HEMO FLAGS DIFF FINAL; LYMPH % 27.8 % (9.0-44.0); LYMPHOCYTE # 1.6 TH/MM3 (1.0-4.8); MEAN CELL VOLUME 99.5 FL (80.0-100.0); MEAN CORPUSCULAR HEMOGLOBIN 32.4 PG (27.0-34.0); MEAN CORPUSCULAR HGB CONC 32.5 % (32.0-36.0); MONO % 12.1 % (0.0-8.0); NEUT % 58.2 % (16.0-70.0); PLATELET COUNT 365 TH/MM3 (150-450); RED BLOOD COUNT 3.52 MIL/MM3 (4.00-5.30); RED CELL DISTRIBUTION WIDTH 18.5 % (11.6-17.2); WHITE BLOOD COUNT 5.9 TH/MM3 (4.0-11.0)
--- NOTE | 2017-06-21 10:03 | HHI.PR ---
Subjective Remarks Feels much better today. No abd pain , no n/v/d/c. Eating better. No fever or chills. Objective Vitals Vital Signs Date Time Temp Pulse Resp B/P (MAP) Pulse Ox O2 Delivery O2 Flow Rate FiO2 06/21/17 06:01 98.3 85 17 112/53 (72) 95 06/20/17 18:45 97.6 88 16 115/58 (77) 98 I/O 06/20/17 06/20/17 06/20/17 06/21/17 06/21/17 06/21/17 07:00 15:00 23:00 07:00 15:00 23:00 Intake Total 720 ml 2160 ml 960 ml 360 ml Balance 720 ml 2160 ml 960 ml 360 ml Intake Oral 720 ml 2160 ml 960 ml 360 ml # Voids 2 5 Result Diagram: 06/21/17 0930 06/20/17 1050 Imaging Last Impressions Cholangiopancreatography MRI 06/17/17 0849 Signed Impressions: Service Date/Time: June 08:24 - CONCLUSION: 1. Complex cystic lesion centered within the pancreatic head measuring up to 6.9 cm. It has mass effect on the surrounding structures but is not causing any bile duct or pancreatic duct obstruction and does not appear to cause any gastric outlet obstruction. 2. The cystic lesion demonstrates mural nodules possibly with hemosiderin. It contains no septations. The top 2 differential diagnostic considerations include pancreatic pseudocyst or mucinous cystic neoplasm. A pseudocyst is favored given the mildly thick wall and lack of septations. However, correlate with clinical history to evaluate for any known history of pancreatitis. Suggest gastroenterology consultation as this lesion will likely need endoscopic ultrasound cyst aspiration for more definitive characterization. Niko Robertson MD Objective Remarks GENERAL: This is a well-nourished, well-developed patient, in no apparent distress. SKIN: Many areas of bruising scattered throughout the body including her back, trunk, bilateral arms, bilateral lower extremities and ankles. In various stages of healing. There appears to be bruising in the shape of a hand possibly with finger imprints along the patients posterior right shoulder. HEAD: Atraumatic. Normocephalic. No temporal or scalp tenderness. EYES: Pupils equal round and reactive. Extraocular motions intact. No scleral icterus. No injection or drainage. ENT: Nose without bleeding, purulent drainage or septal hematoma. Throat without erythema, tonsillar hypertrophy or exudate. Uvula midline. Airway patent. NECK: Trachea midline. No JVD or lymphadenopathy. Supple, nontender, no meningeal signs. CARDIOVASCULAR: Regular rate and rhythm without murmurs, gallops, or rubs. RESPIRATORY: Clear to auscultation. Breath sounds equal bilaterally. No wheezes , rales, or rhonchi. GASTROINTESTINAL: Abdomen soft, non-tender, nondistended. No hepato-splenomegaly , or palpable masses. No guarding. MUSCULOSKELETAL: 2+ edema of bilateral lower extremities up to mid tibias. No joint tenderness, effusion, or edema noted. No calf tenderness. Negative Homans sign bilaterally. NEUROLOGICAL: Awake and alert. Cranial nerves II through XII intact. Motor and sensory grossly within normal limits. Five out of 5 muscle strength in all muscle groups. Normal speech. Procedures S/P Endoscopic ultrasound with FNA for Large pancreatic head cyst causing compression 06/18/[address] Jackson A/P Problem List: (1) Unspecified psychosis ICD Code: F29 - Unspecified psychosis not due to a substance or known physiological condition (2) Hyponatremia ICD Code: E87.1 - Hypo-osmolality and hyponatremia (3) Hypertension ICD Code: I10 - Essential (primary) hypertension (4) Nutrition, metabolism, and development symptoms ICD Code: R63.8 - Other symptoms and signs concerning food and fluid intake Status: Acute (5) H/O ETOH abuse ICD Code: Z87.898 - Personal history of other specified conditions Assessment and Plan 61-year-old female being admitted with AMS, UTI, acute renal insufficiency, and markedly elevated LFTs. Abnormal LFTs 2/2 EtOH use S/P Endoscopic ultrasound with FNA for Large pancreatic head cyst causing compression 06/18/[address] Jackson LFTs markedly elevated, with AST > 2xALT Total bilirubin 2.3 INR1.2 Patient is known to have a history of alcohol abuse Abdomen/pelvis CT showing 4mm calculus of the left renal collecting system at the UPJ however without significant hydronephrosis; 6.9 cm cystic mass in the head of the pancreas; hypodense area measuring 52 cm in the left hepatic lobe Gastroenterology consulted appreciate recommendations, ff Further work up is pending UTI (urinary tract infection) UA with large LE, many wbc clumps, mod bacteria Urine culture however normal chadd, DC antibiotic Acute renal failure Cr 2.16 on admission, baseline ~1.0. Consider pre-renal due to dehydration, no evidence of hydronephrosis on CT Received NS at 100 cc/hr, kidney function back at baseline, monitor Hyponatremia Na noted to be 130 on admission. Monitor closely. Hypokalemia. Replaced. with KCL 80 mEq, Start supplement 20 meq bid.Monitor closely. Encourage PO intake. Altered mental status. Resolving Poss 2/2 medication induced, toxic metabolic Appreciate psychiatry consultation Urine drug screen positive for amphetamines, patient does take Adderall H/O ETOH abuse [facility] protocol IV rally pack Monitor clinically Hypertension BP within normal limits on admission. Restarting home medications as appropriate, patient takes amlodipine 10 mg daily , metoprolol 50 mg once daily Monitor BP and adjust meds as need. DVT ppx ambulation avoid mechanical or chemoprophylaxis at this time as patient with easy bruising Discussed Condition With patient, nurse Improved stable medically can be DC from medical standpoint, to follow up as OP with PCP and consultants. Janki Curtis MD Jun 21, 2017 10:03
[2017-06-21 10:15] LABS: ALKALINE PHOSPHATASE 110 U/L (45-117); ALT (GPT) 154 U/L (10-53); ANION GAP 7 MEQ/L (5-15); AST (GOT) 62 U/L (15-37); BICARBONATE 30.4 MEQ/L (21.0-32.0); BLOOD UREA NITROGEN 10 MG/DL (7-18); CHLORIDE 106 MEQ/L (98-107); GLOMERULAR FILTRATION RATE 67 ML/MIN (>89); MAGNESIUM 1.4 MG/DL (1.5-2.5); POTASSIUM 3.6 MEQ/L (3.5-5.1); SODIUM (NA) 143 MEQ/L (136-145); TOTAL BILIRUBIN ADULT 0.4 MG/DL (0.2-1.0)
[2017-06-21] MEDS ORDERED: LEVA750T9 PO (11:59)
[2017-06-21] MEDS ORDERED: NICO21DI25 T-DERMAL (11:59)
[2017-06-21] MEDS ORDERED: LACTCHW3 CHEW (11:59)
[2017-06-21] MEDS ORDERED: POTASSIUM CHLORIDE 10 MEQ CONTROLLED RELEASE TAB PO ONE (12:15)
[2017-06-21] MEDS ORDERED: MAGNESIUM OXIDE 400 MG TAB PO ONE (12:15)
[2017-06-21] MEDS ORDERED: BUPR150CR PO (12:20)
[2017-06-21] MEDS ORDERED: HALO2TAB PO (12:20)
--- NOTE | 2017-06-21 16:39 | HHI.DS ---
Psychiatry Discharge Summary Inpatient Psychiatric care?: Yes Advance Directive: No Reason Not Provided: Due to Patient Condition Mental Health AdvanceDirective: No Health Care Proxy: No Admission Admission Date Jun 16, 2017 at 16:00 Admission Diagnosis: (1) Unspecified psychosis ICD Code: F29 - Unspecified psychosis not due to a substance or known physiological condition Brief History Patient is a 61-year-old woman, single, domiciled alone, unemployed, past psychiatric history of depression, ADHD as per patient, alcohol use disorder, 1 prior psychiatric hospitalization ([facility] in 2011), no prior suicide attempts or self-injurious behavior, with a past medical history of hypertension , hyperlipidemia brought in by even back for altered mental status, confused and admitted to medical floor for altered mental status, UTI, NAOMI, and increased LFTs due to patient being noted to be disorganized, internally stimulated and tangential along with perceptual disturbances (auditory and visual) as well as paranoid ideation of neighbors trying to kill her patient was transferred to the inpatient psychiatry unit for further evaluation and management. Patient was found lying in hospital bed, cooperative. Patient states that she was having hallucinations and reports having continue visual hallucinations of a "little man who comes to get you". At this hallucination does not speak to her but she hasn't perceiving this visua last time being last evening. Patient states that he is messing with me, coming up behind me" ". Patient states having no difficulty with sleep lately, but has noticed decreased appetite and energy and concentration along with feeling depressed for the past couple of months. Patient states that she recently switched to Wellbutrin by her primary care doctor from [facility] but has not started the medication that she had not filled the prescription. Patient states that recently she had lost her job, continues having a strange relationship with her son, and feels she has not helped with the care of her mother who is in a correction. Patient at this time denies SI, HI, alert and oriented 3. Patient noted to have multiple bruises on arms and states that she has multiple bruises on her back and reports having probable following on plastic container which she later noticed had been broken due to her suspected fall. Continues report feeling depressed, denies any SI or HI, denies any perceptual disturbances at time of interview. Denies any delusions at this time. Psychiatric history: Depression, ADHD as per patient, alcohol use disorder, 1 prior psychiatric hospitalization at [facility] in 2011, no prior suicide attempts or self-injurious behavior. No current outpatient psychiatry services at this time. Previous medication trials include Wellbutrin XL 150 mg by mouth daily, Lexapro 20 mg by mouth daily gabapentin 300 mg daily. Patient denies history of abuse Family psychiatric history: Depression the family (unspecified) and alcohol use disorder with grandmother. Substance use history: Alcohol use daily about half a pint to 1 pint of whiskey for the past 6 months, last use was 45 days ago. Patient reports marijuana use in her 20s, denies use of any other substance. Patient denies previous detox or rehabilitation programs. Past medical history: Hypertension, hyperlipidemia Allergies: NKDA Social history: Born in [facility], raised in [place], has 2 siblings, father is , mother currently in [facility], she is single, has 1 estranged son, highest education is high school, no history, no legal history, [employer] is [employer], patient domiciled alone. Tobacco Use In Past 30 Days: No Tobacco Past 30 Days Alcohol Use: 4 or More Times Per Week Hospital Course Patient is a 61-year-old woman, single, domiciled alone, unemployed, past psychiatric history of depression, ADHD as per patient, alcohol use disorder, 1 prior psychiatric hospitalization ([facility] in 2011), no prior suicide attempts or self-injurious behavior, with a past medical history of hypertension , hyperlipidemia brought in by even back for altered mental status, confused and admitted to medical floor for altered mental status, UTI, NAOMI, and increased LFTs due to patient being noted to be disorganized, internally stimulated and tangential along with perceptual disturbances (auditory and visual) as well as paranoid ideation of neighbors trying to kill her patient was transferred to the inpatient psychiatry unit for further evaluation and management. Patient was started on Haldol 2mg PO BID, bupropion 150mg PO daily and titrated to 150 mg by mouth twice a day which she tolerated well with good effect andcontinued on medical management for metabolic disturbances as well as for UTI as per primary medical team management. She was noted to have improvement of mood, was noted to be more optimistic, calm and cooperative with staff. Patient was noted to have had resolution of low mood and denied suicidal ideation and no longer endorsed any perceptual disturbances. Patient was adherent to medication regimen and recommendations as per primary medical team and did not endorse suicidal ideations. Upon discharge patient stated feeling good, stated feeling anxious about returning back home but had plans on finding a job, continuing treatment, outpatient follow up, indication outpatient rehabilitation program for alcohol use. She agreed to continuing medical recommendations, treatment and attend outpatient follow up appointments for continuity of care. Patient will be discharged back to her home. Patient; denies SI, HI, AVH or delusions. Supportive psychotherapy provided. Patient advised to call 911 or return back to the ED in case of any emergency. Patient agrees with plan. Results Blood Pressure 112 / 53 Vital Signs Date Time Temp Pulse Resp B/P (MAP) Pulse Ox O2 Delivery O2 Flow Rate FiO2 06/21/17 06:01 98.3 85 17 112/53 (72) 95 06/18/17 09:42 Nasal Cannula 2 Laboratory Tests Test 06/18/17 16:41 06/19/17 08:16 06/20/17 10:50 06/21/17 09:30 Potassium Level 2.5 MEQ/L (3.5-5.1) 3.3 MEQ/L (3.5-5.1) 2.7 MEQ/L (3.5-5.1) Estimat Glomerular Filtration Rate 61 ML/MIN (>89) 50 ML/MIN (>89) 58 ML/MIN (>89) 67 ML/MIN (>89) Triglycerides Level 189 MG/DL (42-150) HDL Cholesterol 14.9 MG/DL (40.0-60.0) Red Blood Count 3.59 MIL/MM3 (4.00-5.30) 3.52 MIL/MM3 (4.00-5.30) Red Cell Distribution Width 18.2 % (11.6-17.2) 18.5 % (11.6-17.2) Creatinine 1.11 MG/DL (0.50-1.00) Random Glucose 165 MG/DL (74-106) 204 MG/DL (74-106) 176 MG/DL (74-106) Total Protein 6.2 GM/DL (6.4-8.2) 5.6 GM/DL (6.4-8.2) Albumin 2.4 GM/DL (3.4-5.0) 2.5 GM/DL (3.4-5.0) 2.1 GM/DL (3.4-5.0) Aspartate Amino Transf (AST/SGOT) 196 U/L (15-37) 88 U/L (15-37) 62 U/L (15-37) Alanine Aminotransferase (ALT/SGPT) 324 U/L (10-53) 234 U/L (10-53) 154 U/L (10-53) Carbon Dioxide Level 33.3 MEQ/L (21.0-32.0) Lipase 762 U/L (73-393) 671 U/L (73-393) 474 U/L (73-393) Hemoglobin 11.4 GM/DL (11.6-15.3) Monocytes (%) (Auto) 12.1 % (0.0-8.0) Magnesium Level 1.4 MG/DL (1.5-2.5) Laboratory Results Test 06/18/17 16:41 Cholesterol Level 145 MG/DL (120-200) HDL Cholesterol 14.9 MG/DL (40.0-60.0) Hemoglobin A1c 5.1 % (4.3-6.0) LDL Cholesterol 92 MG/DL (0-99) Triglycerides Level 189 MG/DL (42-150) Summary of Procedures none Imaging Last Impressions Cholangiopancreatography MRI 06/17/17 0849 Signed Impressions: Service Date/Time: June 08:24 - CONCLUSION: 1. Complex cystic lesion centered within the pancreatic head measuring up to 6.9 cm. It has mass effect on the surrounding structures but is not causing any bile duct or pancreatic duct obstruction and does not appear to cause any gastric outlet obstruction. 2. The cystic lesion demonstrates mural nodules possibly with hemosiderin. It contains no septations. The top 2 differential diagnostic considerations include pancreatic pseudocyst or mucinous cystic neoplasm. A pseudocyst is favored given the mildly thick wall and lack of septations. However, correlate with clinical history to evaluate for any known history of pancreatitis. Suggest gastroenterology consultation as this lesion will likely need endoscopic ultrasound cyst aspiration for more definitive characterization. Niko Robertson MD Pending results at discharge: No Medications # of Antipsychotic meds at D/C: 1 Approp Antipsych med options 1 - Minimum of three failed multiple trials of monotherapy. 2 - Documented plan to taper to monotherapy due to previous use of multiple meds OR cross-taper in progress at D/C. 3 - Documentation of augmentation of Clozapine. 4 - Justification other than those listed in allowable values 1-3, document here : Discharge Discharge Date: Jun 21, 2017 Discharge Diagnosis: (1) Unspecified psychosis ICD Code: F29 - Unspecified psychosis not due to a substance or known physiological condition Pt Condition on Discharge: Stable Discharge Disposition: Discharge Home Discharge Instructions Diet Instructions: Heart Healthy Diet Activities you can perform: Regular-No Restrictions Scheduled Appointment: Dinesh Venegas [place] Appointment Date: Jun 22, 2017 Appointment Time: 07:30am Discharge Time > 30 minutes Mental Status Examination Appearance: Appropriate Consciousness: Alert Orientation: Person, Place, Date/Time Speech: Unremarkable Language: Adequate Fund of Knowledge: Inadequate Attention and Concentration: Adequate Memory: Impaired Mood: Appropriate Affect: Appropriate Thought Process & Associations: Intact, Goal directed, Linear Thought Content: Appropriate Hallucination Type: None Delusion Type: None Suicidal Ideation: No Suicidal Plan: No Suicidal Intention: No Homicidal Ideation: No Homicidal Plan: No Homicidal Intention: No Insight: Fair Judgment: Impulsive Discharge/Advance Care Plan Health Problems: (1) Unspecified psychosis Goals to promote your health * To prevent worsening of your condition and complications * To maintain your health at the optimal level Directions to meet your goals Take your medications as prescribed Follow your dietary instruction Follow activity as directed Keep your appointments as scheduled Take your immunizations and boosters as scheduled If your symptoms worsen call your PCP, if no PCP go to Urgent Care Center or Emergency Room For 01/02 questions related to your inpatient stay or results of tests pending at discharge, please contact Dr. Shaq Gonzalez at Smoking is Dangerous to Your Health. Avoid second hand smoking Shaq Gonzalez MD Jun 21, 2017 16:39
== END 2017-06-21 15:12 | disposition home or self-care (01) | DRG 885 ==
LOC: H4EA 16:00
PROVIDERS: ADMIT Student in an Organized Health Care Education/Training Program; ATTEND Student in an Organized Health Care Education/Training Program
PROC: 0F9G3ZZ Drainage of Pancreas, Percutaneous Approach (ICD-10-PCS; principal; 2017-06-16)
DX: F29 Unspecified psychosis not due to a substance or known physiological condition (principal); N17.9 Acute kidney failure, unspecified; K86.2 Cyst of pancreas; E87.1 Hypo-osmolality and hyponatremia; N39.0 Urinary tract infection, site not specified; I10 Essential (primary) hypertension; E78.5 Hyperlipidemia, unspecified; R63.0 Anorexia; I73.9 Peripheral vascular disease, unspecified; R94.5 Abnormal results of liver function studies; N20.0 Calculus of kidney; E86.0 Dehydration; E87.6 Hypokalemia; M19.90 Unspecified osteoarthritis, unspecified site; F10.10 Alcohol abuse, uncomplicated; F32.9 Major depressive disorder, single episode, unspecified; Z81.8 Family history of other mental and behavioral disorders; Z87.891 Personal history of nicotine dependence
CPT/HCPCS: 74181; 76377; 80048; 80053; 80061; 80074; 82150; 83036; 83690; 83735; 85025; 85027; J0696; J7120

== ENCOUNTER 2017-08-04 23:20 | Emergency (ER) | payer OTHER ==
[~2017-08-04 23:20] MED LIST changes: -1-ME1LIQ PO; -BACT800T5 PO; +BUPR150CR PO; -CEFT1INJ2 IV; +HALO2TAB PO; +LACTCHW3 CHEW; +LEVA750T9 PO; +NICO21DI25 T-DERMAL; -POLY10O OU
[2017-08-04 23:30] VITALS: BP 159/97; PULSE 108; RESP 16; TEMP 98.1; O2SAT 97
[2017-08-05] MEDS ORDERED: HALOPERIDOL LACTATE 5 MG/ML AMP IM ONE
[2017-08-05 00:44] LABS: AUTOMATED NEUTROPHIL # 7.7 TH/MM3 (1.8-7.7); BASOPHIL # 0.1 TH/MM3 (0-0.2); BASOPHIL % 0.5 % (0.0-2.0); EOSINOPHIL % 0.1 % (0.0-4.0); HEMATOCRIT 40.4 % (35.0-46.0); HEMOGLOBIN 13.6 GM/DL (11.6-15.3); LYMPH % 26.9 % (9.0-44.0); LYMPHOCYTE # 3.1 TH/MM3 (1.0-4.8); MEAN CELL VOLUME 96.6 FL (80.0-100.0); MEAN CORPUSCULAR HEMOGLOBIN 32.6 PG (27.0-34.0); MEAN CORPUSCULAR HGB CONC 33.7 % (32.0-36.0); MEAN PLATELET VOLUME 7.8 FL (7.0-11.0); MONO % 6.1 % (0.0-8.0); MONOCYTE # 0.7 TH/MM3 (0-0.9); NEUT % 66.4 % (16.0-70.0); PLATELET COUNT 331 TH/MM3 (150-450); RED BLOOD COUNT 4.18 MIL/MM3 (4.00-5.30); RED CELL DISTRIBUTION WIDTH 14.6 % (11.6-17.2); WHITE BLOOD COUNT 11.6 TH/MM3 (4.0-11.0)
[2017-08-05] MEDS ORDERED: diphenhydrAMINE HCL 50 MG/ML VIAL IV PUSH ONE ×2 (02:15)
[2017-08-05] MEDS ORDERED: LORazepam 2 MG/ML VIAL IV PUSH ONE ×2 (02:15)
[2017-08-05 02:17] LABS: ACETAMINOPHEN LESS THAN 2.0 MCG/ML (10.0-30.0); ALKALINE PHOSPHATASE 127 U/L (45-117); ALT (GPT) 26 U/L (10-53); AST (GOT) 37 U/L (15-37); BICARBONATE 19.5 MEQ/L (21.0-32.0); BLOOD UREA NITROGEN 20 MG/DL (7-18); CALCIUM 7.4 MG/DL (8.5-10.1); CALCIUM-PROTEIN CORRECTED 7.7 MG/DL (8.5-10.1); CHLORIDE 106 MEQ/L (98-107); CREATININE 1.08 MG/DL (0.50-1.00); GLOMERULAR FILTRATION RATE 52 ML/MIN (>89); GLUCOSE,RANDOM 118 MG/DL (74-106); SODIUM (NA) 139 MEQ/L (136-145); TOTAL BILIRUBIN ADULT 0.2 MG/DL (0.2-1.0); TOTAL PROTEIN 6.6 GM/DL (6.4-8.2)
--- NOTE | 2017-08-05 03:26 | RADRPT ---
EXAM DATE/TIME: 08/05/2017 03:15 [facility] COMPARISON: CT ABDOMEN & PELVIS W/O CONTRAST, June 16, 2017, 10:19. CHEST SINGLE AP, June 16, 2017, 8:47 . INDICATIONS : Cough starting today MEDICAL HISTORY : None. SURGICAL HISTORY : None. ENCOUNTER: Initial ACUITY: 1 day PAIN SCORE: 0/10 LOCATION: Bilateral chest FINDINGS: A single view of the chest demonstrates the lungs to be symmetrically aerated without evidence of mas s, infiltrate or effusion. The cardiomediastinal contours are unremarkable. Osseous structures are intact. CONCLUSION: The lungs are clear. Matthew Horn MD on August 05, 2017 at 3:24 Board Certified Radiologist. This report was verified electronically.
--- NOTE | 2017-08-05 04:47 | PD ---
HPI . Abdominal pain Chief Complaint: Abdominal Pain Time Seen by Provider: 23:37 Travel History International Travel<30 days: No Contact w/Intl Traveler<30days: No Traveled to known affect area: No History of Present Illness HPI 61-year-old female brought in by ambulance secondary to intoxication, depression , and complaints of abdominal pain. Patient is unreliable historian, currently exhibiting multiple toxidromes including probable R called intoxication and possible methamphetamine intoxication. PFSH Past Medical History Narrative Medical Past medical history reviewed ADD: Yes (PER HISTORY) Anxiety: No Depression: Yes Cancer: No Cardiovascular Problems: Yes High Cholesterol: Yes Diminished Hearing: No Endocrine: No Gastrointestinal Disorders: No Hypertension: Yes Immune Disorder: No Implanted Vascular Access Dvce: No Musculoskeletal: No Neurologic: No Reproductive: No Respiratory: No Menopausal: Yes : 1 Para: 1 Past Surgical History Abdominal Surgery: Yes (CHOLECYSTECTOMY) Cholecystectomy: Yes Other Surgery: Yes (BILATERAL BUNION) Social History Alcohol Use: Yes (1-2 GLASSES RUM PER DAY) Tobacco Use: No Substance Use: Yes (HX MARIJUANA ) Allergies-Medications (Allergen,Severity, Reaction): Coded Allergies: No Known Allergies (Verified Allergy, Unknown, 08/04/17) Reported Meds & Prescriptions Reported Meds & Active Scripts Active Haloperidol 2 Mg Tab 2 Mg PO BID 30 Days Wellbutrin SR 12 HR (Bupropion HCl) 150 Mg Tab 150 Mg PO BID 30 Days Lactinex (Lactobacillus Acidophilus) 1 Chew 1 Tab CHEW DAILY Levaquin (Levofloxacin) 750 Mg Tablet 750 Mg PO DAILY Eq Nicotine (Nicotine) 21 Mg/24 Hour Dis 1 Patch T-DERMAL DAILY Lortab 5 mg/325 mg (Hydrocodone/Acetaminophen 5 mg/325 mg) 1 Tab 1 Tab PO Q6H PRN Zofran ODT (Ondansetron HCl) 4 Mg Tab 4 Mg SL Q6H PRN FOR NAUSEA/VOMITING Reported Aspir-81 (Aspirin) 81 Mg Tab 81 Mg PO DAILY Crestor (Rosuvastatin Calcium) 20 Mg Tab 20 Mg PO DAILY Narrative Medication Allergies and medications reviewed Review of Systems ROS Limitations: Intoxication, Poor Historian General / Constitutional: No: Fever Eyes: No: Visual changes HENT: No: Headaches Cardiovascular: No: Chest Pain or Discomfort Respiratory: No: Shortness of Breath Gastrointestinal: Positive: Abdominal Pain Genitourinary: No: Dysuria Musculoskeletal: No: Pain Skin: No Rash Neurologic: No: Weakness Psychiatric: No: Depression Endocrine: No: Polydipsia Hematologic/Lymphatic: No: Easy Bruising Physical Exam Exam Limitations: Intoxication, Poor Historian Narrative GENERAL: Awake and intoxicated, vital signs stable and normal SKIN: Warm and dry. Color is normal no diaphoresis cyanosis or pallor HEAD: Atraumatic. Normocephalic. EYES: Pupils equal and round. No scleral icterus. No injection or drainage. ENT: No nasal bleeding or discharge. Mucous membranes pink and moist. NECK: Trachea midline. No JVD. Supple nontender CARDIOVASCULAR: Regular rate and rhythm. S1-S2 no murmurs rubs or gallops RESPIRATORY: No accessory muscle use. Clear to auscultation. Breath sounds equal bilaterally. GASTROINTESTINAL: Abdomen soft, non-tender, nondistended. Hepatic and splenic margins not palpable. MUSCULOSKELETAL: Extremities without clubbing, cyanosis, or edema. No obvious deformities. NEUROLOGICAL: Awake and intoxicated. Difficult exam secondary to poor patient cooperation grossly nonfocal. PSYCHIATRIC: Labile, laughing and crying, intoxicated Data Data Last Documented VS Vital Signs Date Time Temp Pulse Resp B/P (MAP) Pulse Ox O2 Delivery O2 Flow Rate FiO2 08/04/17 23:30 98.1 108 16 159/97 (117) 97 Orders Orders Complete Blood Count With Diff (08/04/17 23:37) Comprehensive Metabolic Panel (08/04/17 23:37) Thyroid Stimulating Hormone (08/04/17 23:37) Psych Screen (08/04/17 23:37) Drug Screen, Random Urine (08/04/17 23:37) Alcohol (Ethanol) (08/04/17 23:37) Salicylates (Aspirin) (08/04/17 23:37) Tylenol (Acetaminophen) (08/04/17 23:37) Lorazepam Inj (Ativan Inj) (08/05/17 00:00) Diphenhydramine Inj (Benadryl Inj) (08/05/17 00:00) Haloperidol Inj (Haldol Inj) (08/05/17 00:00) Bladder Scan PRN (08/05/17 00:24) Lorazepam Inj (Ativan Inj) (08/05/17 02:15) Diphenhydramine Inj (Benadryl Inj) (08/05/17 02:15) Chest, Single Ap (08/05/17 ) Labs Laboratory Tests Test 08/05/17 00:22 08/05/17 01:20 08/05/17 01:25 White Blood Count 11.6 TH/MM3 Red Blood Count 4.18 MIL/MM3 Hemoglobin 13.6 GM/DL Hematocrit 40.4 % Mean Corpuscular Volume 96.6 FL Mean Corpuscular Hemoglobin 32.6 PG Mean Corpuscular Hemoglobin Concent 33.7 % Red Cell Distribution Width 14.6 % Platelet Count 331 TH/MM3 Mean Platelet Volume 7.8 FL Neutrophils (%) (Auto) 66.4 % Lymphocytes (%) (Auto) 26.9 % Monocytes (%) (Auto) 6.1 % Eosinophils (%) (Auto) 0.1 % Basophils (%) (Auto) 0.5 % Neutrophils # (Auto) 7.7 TH/MM3 Lymphocytes # (Auto) 3.1 TH/MM3 Monocytes # (Auto) 0.7 TH/MM3 Eosinophils # (Auto) 0.0 TH/MM3 Basophils # (Auto) 0.1 TH/MM3 CBC Comment DIFF FINAL Differential Comment Urine Opiates Screen NEG Urine Barbiturates Screen NEG Urine Amphetamines Screen POS Urine Benzodiazepines Screen NEG Urine Cocaine Screen NEG Urine Cannabinoids Screen NEG Blood Urea Nitrogen 20 MG/DL Creatinine 1.08 MG/DL Random Glucose 118 MG/DL Total Protein 6.6 GM/DL Albumin 3.0 GM/DL Calcium Level 7.4 MG/DL Alkaline Phosphatase 127 U/L Aspartate Amino Transf (AST/SGOT) 37 U/L Alanine Aminotransferase (ALT/SGPT) 26 U/L Total Bilirubin 0.2 MG/DL Sodium Level 139 MEQ/L Potassium Level 3.9 MEQ/L Chloride Level 106 MEQ/L Carbon Dioxide Level 19.5 MEQ/L Anion Gap 14 MEQ/L Estimat Glomerular Filtration Rate 52 ML/MIN Protein Corrected Calcium 7.7 MG/DL Thyroid Stimulating Hormone 3rd Gen 4.030 uIU/ML Salicylates Level LESS THAN 1.7 MG/DL Acetaminophen Level LESS THAN 2.0 MCG/ML Ethyl Alcohol Level 272 MG/DL MDM Medical Decision Making Medical Screen Exam Complete: Yes Emergency Medical Condition: Yes Medical Record Reviewed: Yes Differential Diagnosis Multiple status, polysubstance abuse, intoxication, abdominal pain Narrative Course Laboratory examinations reviewed, no significant abnormalities exception of positive alcohol level noted posterior amphetamines on urine toxicology consistent with patient's presentation CT abdomen and pelvis pending Arturo Quevedo MD Aug 05, 2017 04:47
--- NOTE | 2017-08-05 05:47 | RADRPT ---
EXAM DATE/TIME: 08/05/2017 05:17 [facility] COMPARISON: MRCP W/O CONTRAST, June 17, 2017, 8:24. CT ABDOMEN & PELVIS W/O CONTRAST, June 16, 2017, 10: 19. INDICATIONS : Diffuse abdominal pain. ORAL CONTRAST: No oral contrast ingested. RADIATION DOSE: 14.21 CTDIvol (mGy) MEDICAL HISTORY : Hypertension. Substance abuse. SURGICAL HISTORY : Cholecystectomy. ENCOUNTER: Initial ACUITY: 1 day PAIN SCALE: 3/10 LOCATION: Abdomen. TECHNIQUE: Volumetric scanning of the abdomen and pelvis was performed. Using automated exposure control and ad justment of the mA and/or kV according to patient size, radiation dose was kept as low as reasonably achievable to obtain optimal diagnostic quality images. DICOM format image data is available electro nically for review and comparison. FINDINGS: LOWER LUNGS: The visualized lower lungs are clear. LIVER: Homogeneous density without lesion. There is no dilation of the biliary tree. Cholecystectomy.. SPLEEN: Normal size without lesion. PANCREAS: Smooth margined cystic lesion in the head of the pancreas with small mural nodules has decreased in s ize when compared to prior CT now measuring 4.2 cm (previously measured 4.9 cm). The body and tail a re intact. KIDNEYS: Stable 6 mm calcified stone lower pole right kidney. No evidence of hydronephrosis. The right urete r is normal in dimension. On the left side, no evidence of hydronephrosis. 4 mm calcified stone low er pole collecting system stable from prior. There is a 3 mm calcified stone in the proximal left ur eter, similar in appearance to prior examination. ADRENAL GLANDS: Within normal limits. VASCULAR: There is no aortic aneurysm. BOWEL/MESENTERY: No dilated loops of small or large bowel. The appendix is identified retrocecal and has a normal nicholas earance. ABDOMINAL WALL: Within normal limits. RETROPERITONEUM: There is no lymphadenopathy. BLADDER: No wall thickening or mass. REPRODUCTIVE: Within normal limits. INGUINAL: There is no lymphadenopathy or hernia. MUSCULOSKELETAL: Within normal limits for patient age. CONCLUSION: 1. Bilateral renal stones and 3 mm calcified stone in the proximal left ureter without evidence of hy dronephrosis. These findings are stable from prior. 2. Interval mild decrease in size of cyst with mural nodules in the head of the pancreas, now measu ring 4.2 cm. Matthew Horn MD on August 05, 2017 at 5:38 Board Certified Radiologist. This report was verified electronically.
[2017-08-05 06:09] VITALS: BP 140/69; PULSE 121; RESP 16; O2SAT 98
[2017-08-05] MEDS ORDERED: SODIUM CHLOR 0.9% 1000 ML INJ 1,000 ML IV ONE (08:15)
[2017-08-05] MEDS ORDERED: KETOROLAC TROMETHAMINE 30 MG/ML (IVP) VIAL IV PUSH ONE (08:15)
[2017-08-05] MEDS ORDERED: LORazepam 2 MG TAB PO PRN (10:15)
[2017-08-05] MEDS ORDERED: LORazepam 1 MG TAB PO PRN (10:15)
[2017-08-05] MEDS ORDERED: FLUMAZENIL 0.5 MG/5 ML VIAL IV PUSH PRN (10:15)
[2017-08-05] MEDS ORDERED: LORazepam 2 MG/ML VIAL IV PUSH PRN ×4 (10:15)
--- NOTE | 2017-08-05 11:37 | PD ---
Physical Exam Date Seen by Provider: Aug 05, 2017 Time Seen by Provider: 10:00 Narrative Patient was seen and evaluated by Dr. Valdez. She was medically cleared for psychiatric evaluation. The patient's been evaluated by the [facility] apparel trimmings sales representative and the patient has a history of polysubstance abuse. She was noted to have an elevated alcohol level. She is also noted to have positive amphetamines in her toxicology screen. The patient is awake and appropriate. She is not suicidal or homicidal. The patient does admit that she has a substance abuse problem. The patient was complaining of abdominal pain and a CT scan was ordered which showed bilateral renal calculi but it also showed a pancreatic cyst. This is likely secondary to her alcohol abuse. There was no acute findings on the CT scan. Data Data Last Documented VS Vital Signs Date Time Temp Pulse Resp B/P (MAP) Pulse Ox O2 Delivery O2 Flow Rate FiO2 08/05/17 06:09 121 16 140/69 (92) 98 Room Air 08/04/17 23:30 98.1 Orders Orders Complete Blood Count With Diff (08/04/17 23:37) Comprehensive Metabolic Panel (08/04/17 23:37) Thyroid Stimulating Hormone (08/04/17 23:37) Psych Screen (08/04/17 23:37) Drug Screen, Random Urine (08/04/17 23:37) Alcohol (Ethanol) (08/04/17 23:37) Salicylates (Aspirin) (08/04/17 23:37) Tylenol (Acetaminophen) (08/04/17 23:37) Lorazepam Inj (Ativan Inj) (08/05/17 00:00) Diphenhydramine Inj (Benadryl Inj) (08/05/17 00:00) Haloperidol Inj (Haldol Inj) (08/05/17 00:00) Bladder Scan PRN (08/05/17 00:24) Lorazepam Inj (Ativan Inj) (08/05/17 02:15) Diphenhydramine Inj (Benadryl Inj) (08/05/17 02:15) Chest, Single Ap (08/05/17 ) Ct Abd/Pel W/O Iv Contrast (08/05/17 ) Ketorolac Inj (Toradol Inj) (08/05/17 08:15) Sodium Chlor 0.9% 1000 Ml Inj (Ns 1000 M (08/05/17 08:15) Alcohol Withdrawal Asmt-Ciwa ONCE (08/05/17 10:03) Flumazenil Inj (Romazicon Inj) (08/05/17 10:15) Lorazepam (Ativan) (08/05/17 10:15) Lorazepam Inj (Ativan Inj) (08/05/17 10:15) Lorazepam (Ativan) (08/05/17 10:15) Lorazepam Inj (Ativan Inj) (08/05/17 10:15) Lorazepam Inj (Ativan Inj) (08/05/17 10:15) Lorazepam Inj (Ativan Inj) (08/05/17 10:15) Labs Laboratory Tests Test 08/05/17 00:22 08/05/17 01:20 08/05/17 01:25 White Blood Count 11.6 TH/MM3 Red Blood Count 4.18 MIL/MM3 Hemoglobin 13.6 GM/DL Hematocrit 40.4 % Mean Corpuscular Volume 96.6 FL Mean Corpuscular Hemoglobin 32.6 PG Mean Corpuscular Hemoglobin Concent 33.7 % Red Cell Distribution Width 14.6 % Platelet Count 331 TH/MM3 Mean Platelet Volume 7.8 FL Neutrophils (%) (Auto) 66.4 % Lymphocytes (%) (Auto) 26.9 % Monocytes (%) (Auto) 6.1 % Eosinophils (%) (Auto) 0.1 % Basophils (%) (Auto) 0.5 % Neutrophils # (Auto) 7.7 TH/MM3 Lymphocytes # (Auto) 3.1 TH/MM3 Monocytes # (Auto) 0.7 TH/MM3 Eosinophils # (Auto) 0.0 TH/MM3 Basophils # (Auto) 0.1 TH/MM3 CBC Comment DIFF FINAL Differential Comment Urine Opiates Screen NEG Urine Barbiturates Screen NEG Urine Amphetamines Screen POS Urine Benzodiazepines Screen NEG Urine Cocaine Screen NEG Urine Cannabinoids Screen NEG Blood Urea Nitrogen 20 MG/DL Creatinine 1.08 MG/DL Random Glucose 118 MG/DL Total Protein 6.6 GM/DL Albumin 3.0 GM/DL Calcium Level 7.4 MG/DL Alkaline Phosphatase 127 U/L Aspartate Amino Transf (AST/SGOT) 37 U/L Alanine Aminotransferase (ALT/SGPT) 26 U/L Total Bilirubin 0.2 MG/DL Sodium Level 139 MEQ/L Potassium Level 3.9 MEQ/L Chloride Level 106 MEQ/L Carbon Dioxide Level 19.5 MEQ/L Anion Gap 14 MEQ/L Estimat Glomerular Filtration Rate 52 ML/MIN Protein Corrected Calcium 7.7 MG/DL Thyroid Stimulating Hormone 3rd Gen 4.030 uIU/ML Salicylates Level LESS THAN 1.7 MG/DL Acetaminophen Level LESS THAN 2.0 MCG/ML Ethyl Alcohol Level 272 MG/DL MDM Medical Record Reviewed: Yes Supervised Visit with KRISTINE: No Differential Diagnosis Polysubstance abuse versus substance induced mood disorder versus acute abdominal pathology Narrative Course 61-year-old female presents with abdominal pain and substance abuse. The patient was noted to have an elevated alcohol level of 270. Patient also noted to have amphetamines on her toxicology screen. Patient is complaining of chronic abdominal pain which showed bilateral renal calculi as well as a pancreatic cyst. There is no acute process at this time. The patient is willing to go voluntarily to [facility] for the outpatient program. She's been given information by the [facility] liaison and is amenable to this plan. She is not suicidal or homicidal at this time. She will be discharged to go to [facility]. She is instructed to avoid alcohol. She is also instructed to follow up with outpatient GI physician for her pancreatic cyst. Diagnosis Primary Impression: Polysubstance abuse Additional Impressions: History of alcohol abuse Bilateral kidney stones Pancreatic pseudocyst Additional Instruction: Follow up with a anode builder. Stop using alcohol and amphetamines. Stop using alcohol and drugs. Follow up with [facility]. Disposition: 01 DISCHARGE HOME Condition: Stable Adalberto Garibay MD Aug 05, 2017 11:37
[2017-08-05] MEDS ORDERED: KETO10 PO (11:40)
== END 2017-08-05 12:29 | disposition home or self-care (01) ==
LOC: NEPE 23:20
DX: F19.10 Other psychoactive substance abuse, uncomplicated (principal); N20.0 Calculus of kidney; K86.3 Pseudocyst of pancreas; F32.9 Major depressive disorder, single episode, unspecified; E78.00 Pure hypercholesterolemia, unspecified; I10 Essential (primary) hypertension; Z79.82 Long term (current) use of aspirin; Z79.899 Other long term (current) drug therapy
CPT/HCPCS: 71045; 74176; 80053; 80307; 84443; 85025; 96374; 96375; 96376; 99285; J1200; J1630; J1885; J2060; J7030

== ENCOUNTER 2017-12-29 12:49 | Inpatient (IN) | payer OTHER ==
[~2017-12-29] VITALS: Ht 165.1 cm; Wt 99.1 kg
[~2017-12-29 12:49] MED LIST changes: -ASPI81TA82 PO; -HALO2TAB PO; -HYDR-3533 PO; +KETO10 PO; -LACTCHW3 CHEW; -LEVA750T9 PO; -NICO21DI25 T-DERMAL; -ZOFR4TAB3 SL
[2017-12-29 12:52] VITALS: BP 126/86; PULSE 100; RESP 16; TEMP 101.8; O2SAT 98
[2017-12-29] MEDS ORDERED: SODIUM CHLOR 0.9% 1000 ML INJ 1,000 ML IV ONE ×3 (12:54)
[2017-12-29 12:58] VITALS: O2SAT 98
--- NOTE | 2017-12-29 13:10 | PD ---
HPI . Urinary incontinence Chief Complaint: Abdominal Pain Time Seen by Provider: 12:54 Travel History International Travel<30 days: No Contact w/Intl Traveler<30days: No Traveled to known affect area: No History of Present Illness HPI Patient presents with chief complaint of urinary incontinence. Onset was 3 weeks ago. She states that she was seen at her doctor's office 3 weeks ago. She states that they did not diagnose her with a urinary tract infection. Since that time, she has continued to have urinary incontinence. She states that she has actually stopped drinking liquids because drinking liquids causes her to urinate. She has now developed diarrhea. That started about 4 days ago. She also has nausea. She denies fever. PFSH Past Medical History ADD: Yes (PER HISTORY) Anxiety: No Depression: Yes Cancer: No Cardiovascular Problems: Yes High Cholesterol: Yes Diminished Hearing: No Endocrine: No Gastrointestinal Disorders: No Hypertension: Yes Immune Disorder: No Implanted Vascular Access Dvce: No Musculoskeletal: No Neurologic: No Reproductive: No Respiratory: No Tetanus Vaccination: < 5 Years Menopausal: Yes : 1 Para: 1 Past Surgical History Abdominal Surgery: Yes (CHOLECYSTECTOMY) Cholecystectomy: Yes Other Surgery: Yes (BILATERAL BUNION) Social History Alcohol Use: Yes (1-2 GLASSES RUM PER DAY) Tobacco Use: No Substance Use: Yes (HX MARIJUANA ) Allergies-Medications (Allergen,Severity, Reaction): Coded Allergies: No Known Allergies (Verified Allergy, Unknown, 12/29/17) Reported Meds & Prescriptions Reported Meds & Active Scripts Active Review of Systems Except as stated in HPI: all other systems reviewed are Neg General / Constitutional: No: Fever, Chills HENT: Positive: Headaches Cardiovascular: No: Chest Pain or Discomfort Respiratory: No: Shortness of Breath Gastrointestinal: Positive: Nausea, Diarrhea, Abdominal Pain, No: Vomiting Genitourinary: Positive: Incontinence Physical Exam Narrative GENERAL: Awake and alert. No acute distress. SKIN: warm/dry. HEAD: Normocephalic. Atraumatic. EYES: Pupils equal and round. Extraocular movements are intact. ENT: Mucous membranes pink. Lips and tongue are very dry. NECK: Supple. Full range of motion without pain.. CARDIOVASCULAR: Regular rate and rhythm. Heart sounds are normal. RESPIRATORY: No accessory muscle use. Clear to auscultation. Breath sounds equal bilaterally. GASTROINTESTINAL: Abdomen soft. Nontender. Bowel sounds present. Nondistended. MUSCULOSKELETAL: No obvious deformities. Normal muscle tone. NEUROLOGICAL: Awake and alert. No obvious cranial nerve deficits. Motor grossly within normal limits. Normal speech. PSYCHIATRIC: Appropriate mood and affect; insight and judgment normal. Data Data Last Documented VS Vital Signs Date Time Temp Pulse Resp B/P (MAP) Pulse Ox O2 Delivery O2 Flow Rate FiO2 12/29/17 14:07 99.9 87 16 134/66 (88) 93 Room Air Orders Orders Sepsis Workup Initiated (12/29/17 ) Complete Blood Count With Diff (12/29/17 12:54) Comprehensive Metabolic Panel (12/29/17 12:54) Lactic Acid Sepsis Protocol (12/29/17 12:54) Urinalysis - C+S If Indicated (12/29/17 12:54) Blood Culture (12/29/17 12:54) Chest, Single Ap (12/29/17 12:54) Blood Glucose (12/29/17 12:54) Ecg Monitoring (12/29/17 12:54) Iv Access Insert/Monitor (12/29/17 12:54) Oximetry (12/29/17 12:54) Sodium Chlor 0.9% 1000 Ml Inj (Ns 1000 M (12/29/17 12:54) Sodium Chlor 0.9% 1000 Ml Inj (Ns 1000 M (12/29/17 12:54) Sodium Chlor 0.9% 1000 Ml Inj (Ns 1000 M (12/29/17 12:54) Urinary Catheter Insert/Apply (12/29/17 12:54) Potassium Chloride (Kcl) (12/29/17 13:45) Potassium Chloride (Kcl) (12/29/17 14:45) Potassium Chloride (Kcl) (12/29/17 15:45) Magnesium (Mg) (12/29/17 13:07) Vital Signs (Adult) Q4H (12/29/17 14:20) Diet Heart Healthy (12/29/17 Dinner) Activity Oob With Assistance (12/29/17 14:20) Notify Dr: Other (12/29/17 14:20) Admit Order (Ed Use Only) (12/29/17 ) Labs Laboratory Tests Test 12/29/17 13:07 12/29/17 14:15 White Blood Count 10.6 TH/MM3 Red Blood Count 5.09 MIL/MM3 Hemoglobin 14.9 GM/DL Hematocrit 45.8 % Mean Corpuscular Volume 90.1 FL Mean Corpuscular Hemoglobin 29.3 PG Mean Corpuscular Hemoglobin Concent 32.6 % Red Cell Distribution Width 14.5 % Platelet Count 226 TH/MM3 Mean Platelet Volume 8.3 FL Neutrophils (%) (Auto) 77.0 % Lymphocytes (%) (Auto) 13.2 % Monocytes (%) (Auto) 8.4 % Eosinophils (%) (Auto) 0.3 % Basophils (%) (Auto) 1.1 % Neutrophils # (Auto) 8.2 TH/MM3 Lymphocytes # (Auto) 1.4 TH/MM3 Monocytes # (Auto) 0.9 TH/MM3 Eosinophils # (Auto) 0.0 TH/MM3 Basophils # (Auto) 0.1 TH/MM3 CBC Comment AUTO DIFF Differential Comment AUTO DIFF CONFIRMED Platelet Estimate NORMAL Platelet Morphology Comment NORMAL Blood Urea Nitrogen 22 MG/DL Creatinine 1.70 MG/DL Random Glucose 102 MG/DL Total Protein 6.8 GM/DL Albumin 2.3 GM/DL Calcium Level 8.6 MG/DL Magnesium Level 1.5 MG/DL Alkaline Phosphatase 157 U/L Aspartate Amino Transf (AST/SGOT) 75 U/L Alanine Aminotransferase (ALT/SGPT) 33 U/L Total Bilirubin 1.4 MG/DL Sodium Level 131 MEQ/L Potassium Level 2.5 MEQ/L Chloride Level 95 MEQ/L Carbon Dioxide Level 25.0 MEQ/L Anion Gap 11 MEQ/L Estimat Glomerular Filtration Rate 31 ML/MIN Lactic Acid Level 1.8 mmol/L MDM Medical Decision Making Medical Screen Exam Complete: Yes Emergency Medical Condition: Yes Medical Record Reviewed: Yes (This patient has a history of alcohol and illicit drug abuse. She also has a history of hypertension.) Differential Diagnosis Differential diagnosis of abdominal pain includes but is not limited to gastritis, pancreatitis, hepatitis, gastroenteritis, constipation, urinary retention, peptic ulcer disease, diverticulitis or appendicitis Narrative Course This patient presents with a chief complaint of urinary incontinence. Onset was 3 weeks ago. She has stopped drinking fluids because of the incontinence. She has subsequently developed abdominal pain and diarrhea. On examination, she looks dehydrated. Septic workup has been initiated. I have ordered a 30 cc/kg fluid bolus. Clinically, she is dehydrated. Last Impressions Chest X-Ray 12/29/17 1254 Signed Impressions: CONCLUSION: No acute cardiopulmonary process. The chest x-ray was independently reviewed by me. CBC & BMP Diagram 12/29/17 13:07 Total Protein 6.8, Albumin 2.3 L, Calcium Level 8.6, Magnesium Level 1.5, Alkaline Phosphatase 157 H, Aspartate Amino Transf (AST/SGOT) 75 H, Alanine Aminotransferase (ALT/SGPT) 33, Total Bilirubin 1.4 H GFR 31. Her GFR and Bon was 67. It was 52 and July. Her potassium is being replaced orally. She has a Jaime catheter in place. She has had no urine output thus far. She is receiving fluids at wide open. Sepsis Criteria SIRS Criteria (2 or more): Temp > 100.9 or < 96.8, Heart rate over 90 Criteria Outcome: Meets SIRS criteria Physician Communication Physician Communication Dr. Mckeon Diagnosis Primary Impression: Acute renal failure Qualified Codes: N17.9 - Acute kidney failure, unspecified Additional Impressions: Hypokalemia Dehydration Admitting Information Admitting Physician Requests: Admit Condition: Stable Fiona Aquino MD Dec 29, 2017 13:10
[2017-12-29 13:14] VITALS: BP 112/65; PULSE 90; RESP 16; TEMP 101.7; O2SAT 98
[2017-12-29 13:18] LABS: AUTOMATED NEUTROPHIL # 8.2 TH/MM3 (1.8-7.7); BASOPHIL # 0.1 TH/MM3 (0-0.2); BASOPHIL % 1.1 % (0.0-2.0); EOSINOPHIL % 0.3 % (0.0-4.0); HEMATOCRIT 45.8 % (35.0-46.0); HEMOGLOBIN 14.9 GM/DL (11.6-15.3); LYMPH % 13.2 % (9.0-44.0); LYMPHOCYTE # 1.4 TH/MM3 (1.0-4.8); MEAN CELL VOLUME 90.1 FL (80.0-100.0); MEAN CORPUSCULAR HEMOGLOBIN 29.3 PG (27.0-34.0); MEAN CORPUSCULAR HGB CONC 32.6 % (32.0-36.0); MEAN PLATELET VOLUME 8.3 FL (7.0-11.0); MONO % 8.4 % (0.0-8.0); MONOCYTE # 0.9 TH/MM3 (0-0.9); PLATELET COUNT 226 TH/MM3 (150-450); RED BLOOD COUNT 5.09 MIL/MM3 (4.00-5.30); RED CELL DISTRIBUTION WIDTH 14.5 % (11.6-17.2); WHITE BLOOD COUNT 10.6 TH/MM3 (4.0-11.0)
--- NOTE | 2017-12-29 13:27 | RADRPT ---
EXAM DATE: 12/29/2017 1:14 PM EDT AGE/SEX: 62 years / Female INDICATIONS: UTI x 3 weeks now with blood in urine. Vomiting. CLINICAL DATA: This is the patient's initial encounter. Patient reports that signs and symptoms have been present for 3 weeks and indicates a pain score of 0/10. MEDICAL/SURGICAL HISTORY: Hypercholesterolemia. Hypertension. Cholecystectomy. Bilateral bunio nectomy. [place] [facility] [place]. . FINDINGS: A single AP view of the chest demonstrates the lungs to be symmetrically aerated without evidence of mass, infiltrate or effusion. The cardiomediastinal contours are unremarkable. Osseous structures a re intact. CONCLUSION: No acute cardiopulmonary process. Electronically signed by: Niko Boyle MD 12/29/2017 1:26 PM EDT
[2017-12-29 13:40] LABS: ALBUMIN 2.3 GM/DL (3.4-5.0); ALKALINE PHOSPHATASE 157 U/L (45-117); ALT (GPT) 33 U/L (10-53); AST (GOT) 75 U/L (15-37); BLOOD UREA NITROGEN 22 MG/DL (7-18); CALCIUM 8.6 MG/DL (8.5-10.1); CHLORIDE 95 MEQ/L (98-107); GLOMERULAR FILTRATION RATE 31 ML/MIN (>89); GLUCOSE,RANDOM 102 MG/DL (74-106); SODIUM (NA) 131 MEQ/L (136-145); TOTAL BILIRUBIN ADULT 1.4 MG/DL (0.2-1.0); TOTAL PROTEIN 6.8 GM/DL (6.4-8.2)
[2017-12-29] MEDS ORDERED: POTASSIUM CHLORIDE 20 MEQ CONTROLLED RELEASE TAB PO ONE ×3 (13:45→15:45)
[2017-12-29 13:58] LABS: MAGNESIUM 1.5 MG/DL (1.5-2.5)
[2017-12-29 14:07] VITALS: BP 134/66; PULSE 87; RESP 16; TEMP 99.9; O2SAT 93
[2017-12-29] MEDS ORDERED: ONDANSETRON HCL 4 MG/2 ML VIAL IVP PRN (14:30)
[2017-12-29] MEDS ORDERED: BISACODYL 10 MG SUPP RECTAL PRN (14:30)
[2017-12-29] MEDS ORDERED: SODIUM CHLORIDE 0.9% FLUSH 10 ML FLUSH IV FLUSH PRN (14:30)
[2017-12-29] MEDS ORDERED: SENNOSIDES 8.6 MG TAB PO PRN (14:30)
[2017-12-29] MEDS ORDERED: MAGNESIUM HYDROXIDE SUSP 30 ML CUP PO PRN (14:30)
[2017-12-29] MEDS ORDERED: ACETAMINOPHEN 325 MG TAB PO PRN (14:30)
[2017-12-29] MEDS ORDERED: LACTULOSE SYRUP 20 GM/30 ML CUP PO PRN (14:30)
[2017-12-29 14:45] LABS: BILIRUBIN, URINE NEG (NEG); BLOOD, URINE LARGE (NEG); GLUCOSE,URINE NEG (NEG); KETONE, URINE NEG (NEG); NITRITE,URINE NEG (NEG); PH, URINE 6.5 (5.0-8.5); URINE COLOR YELLOW (YELLW/STRAW); URINE LEUKOCYTE ESTERASE LARGE (NEG)
[2017-12-29] MEDS ORDERED: ALPRAZolam 0.25 MG TAB PO PRN (14:45)
[2017-12-29 14:52] LABS: BACTERIA, URINE MANY /hpf; SQUAMOUS EPITHELIAL CELL URINE 0-2 /hpf (0-5)
[2017-12-29] MEDS ORDERED: LORazepam 2 MG/ML VIAL IV PUSH PRN (15:00)
[2017-12-29] MEDS ORDERED: LORazepam 2 MG TAB PO PRN (15:00)
[2017-12-29] MEDS ORDERED: FLUMAZENIL 0.5 MG/5 ML VIAL IV PUSH PRN (15:00)
[2017-12-29] MEDS ORDERED: LORazepam 1 MG TAB PO PRN (15:00)
[2017-12-29] MEDS ORDERED: HALOPERIDOL LACTATE 5 MG/ML AMP IM PRN (15:00)
[2017-12-29] MEDS ORDERED: cloNIDine HCL 0.1 MG TAB PO PRN (15:00)
[2017-12-29 15:21] VITALS: BP 125/57; PULSE 81; RESP 16; O2SAT 97
[2017-12-29] MEDS: NS + KCL 20 MEQ INJ 1,000 ML IV SCH (16:30)
[2017-12-29] MEDS: cefTRIAXone INJ 1,000 MG in SODIUM CHLORIDE 0.9% INJ 100 ML IV SCH (16:30)
--- NOTE | 2017-12-29 16:51 | RADRPT ---
EXAM DATE: 12/29/2017 4:28 PM EDT AGE/SEX: 62 years / Female INDICATIONS: Increased BUN/Creatinine. CLINICAL DATA: This is the patient's initial encounter. Patient reports that signs and symptoms have been present for 1 day and indicates a pain score of 2/10. MEDICAL/SURGICAL HISTORY: . Hypercholesterolemia. Hypertension. ADD. Depression. [place] bstance use. Cholecystectomy. Bilateral bunion removal. COMPARISON: No prior exams available for comparison. MEASUREMENTS: Right Kidney:__10.2 x 5.4 x 5.8 cm Left Kidney:__10.2 x 5.6 x 6.6 cm FINDINGS: Right Kidney: There is mild dilatation of the right collecting system. There is increased echogenicit y to the kidney. Left Kidney: Increased echotexture. No mass or hydronephrosis. Bladder: Jaime catheter is present. Bladder decompressed. CONCLUSION: 1. Mild dilatation of the right collecting system. 2. Mild increased echogenicity of the kidneys which can suggest medical renal disease. Electronically signed by: Niko Boyle MD 12/29/2017 4:49 PM EDT
[2017-12-29 20:00] VITALS: BP 115/69; PULSE 70; RESP 20; TEMP 98.7; O2SAT 95
[2017-12-29] MEDS: SODIUM CHLORIDE 0.9% FLUSH 10 ML FLUSH IV FLUSH SCH (21:00)
[2017-12-29] MEDS: buPROPion HCL 150 MG SUSTAINED RELEASE TAB PO SCH (21:07)
[2017-12-30] VITALS: BP 128/79; PULSE 83; RESP 20; TEMP 100; O2SAT 95
[2017-12-30] MEDS: NS + KCL 20 MEQ INJ 1,000 ML IV SCH ×2 (00:14→08:11)
[2017-12-30 01:14] VITALS: TEMP 99.5
[2017-12-30 06:28] LABS: AUTOMATED NEUTROPHIL # 5.9 TH/MM3 (1.8-7.7); BASOPHIL % 0.4 % (0.0-2.0); EOSINOPHIL # 0.1 TH/MM3 (0-0.4); EOSINOPHIL % 0.7 % (0.0-4.0); HEMATOCRIT 36.6 % (35.0-46.0); LYMPH % 15.8 % (9.0-44.0); LYMPHOCYTE # 1.3 TH/MM3 (1.0-4.8); MEAN CELL VOLUME 91.1 FL (80.0-100.0); MEAN CORPUSCULAR HEMOGLOBIN 29.9 PG (27.0-34.0); MEAN CORPUSCULAR HGB CONC 32.8 % (32.0-36.0); MEAN PLATELET VOLUME 8.3 FL (7.0-11.0); MONO % 14.4 % (0.0-8.0); MONOCYTE # 1.2 TH/MM3 (0-0.9); NEUT % 68.7 % (16.0-70.0); PLATELET COUNT 202 TH/MM3 (150-450); RED BLOOD COUNT 4.02 MIL/MM3 (4.00-5.30); RED CELL DISTRIBUTION WIDTH 14.9 % (11.6-17.2); WHITE BLOOD COUNT 8.5 TH/MM3 (4.0-11.0)
[2017-12-30 06:49] LABS: ALBUMIN 1.6 GM/DL (3.4-5.0); BICARBONATE 20.5 MEQ/L (21.0-32.0); CALCIUM 7.4 MG/DL (8.5-10.1); CALCIUM-PROTEIN CORRECTED 8.6 MG/DL (8.5-10.1); CREATININE 1.1 MG/DL (0.50-1.00); TOTAL BILIRUBIN ADULT 0.6 MG/DL (0.2-1.0)
[2017-12-30 08:00] VITALS: BP 118/67; PULSE 74; RESP 18; TEMP 97.8; O2SAT 94
[2017-12-30] MEDS: SODIUM CHLORIDE 0.9% FLUSH 10 ML FLUSH IV FLUSH SCH ×2 (08:11→20:48)
[2017-12-30] MEDS: buPROPion HCL 150 MG SUSTAINED RELEASE TAB PO SCH ×2 (08:11→21:52)
--- NOTE | 2017-12-30 10:42 | HHI.HP ---
HPI Service [facility] Hospitalists Primary Care Physician Prashant Pichardo M.D. Admission Diagnosis dehydration, ARF, hypokalemia Travel History International Travel<30 Days: No Contact w/Intl Traveler <30 Da: No Traveled to Known Affected Are: No History of Present Illness This is a pleasant 62-year-old female with past medical history of alcoholism, pancreatic cyst, hypertension, chronic kidney disease stage III who presented to the ER yesterday evening complaining of a 3 week history of urinary frequency and incontinence. Her primary care physician is Dr. Prashant Pichardo although she reports she usually sees a nurse practitioner. The patient states that about 3 weeks ago she saw her PCP and she is a little bit vague on the details but it sounds like she had an x-ray and some type of CT scan. She also reports that she had blood in her urine. I do not have Dr. Pichardo's recent records but do have a note from Jul 2017 and recent records have been requested. The patient also states she has had diarrhea for the past 5 days. She denies any vomiting. She does endorse nausea. The patient denies dysuria. She denies noticing fevers at home however she was febrile with temp of 101 in the emergency department. The patient states she has chronic urinary incontinence. She stopped drinking water due to the urinary frequency. She works at [employer] and states she cannot go to the bathroom so frequently while at work. Today she is still having dysuria. Denies flank pain. Does endorse she fell 3 weeks ago and reports unstable gait since her hospitalization in June which she attributes to Haldol prescribed during that visit (she is no longer taking this) . She also has generalized weakness and is requiring significant assistance to get out of bed. Last colonoscopy in 2014 at which time she had a polyp and microscopic colitis. She presented to the ER last night with mild acute kidney injury and UA suggestive of infection. On admission creatinine was 1.7 and potassium was 2.5. She was given IV fluids overnight and creatinine has returned to baseline this morning. Jaime catheter was removed this morning. Renal ultrasound shows mild dilation of the right collecting system and mild increased echogenicity of the kidneys suggestive of medical renal disease. Of note I did review her outpatient creatinines which have ranged between 1.1-1.74 over the past several months. AST is elevated at 53 which is lower than previous. Patient states she has not had any alcohol since June. Blood cultures and urine culture have been drawn and she has been on Rocephin. Of note the patient does have a known 4 x 6 cm cystic lesion in her pancreas diagnosed in June 2017 she was admitted to the hospital for altered mental status,, polysubstance use, possible alcohol withdrawal she had psychosis during that hospitalization and actually was admitted to the med psych max. Apparently she underwent endoscopic ultrasound with FNA June 18. She had elevated CEA levels in the cystic fluid. She had a follow-up CT with pancreatic protocol on August 10 which showed a stable 5 cm cystic mass, and a chronic proximal small left ureteral stone with mild hydronephrosis which was unchanged. The patient was supposed to follow-up with gastroenterology and was referred to oncology for this cystic mass however due to finances she was unable to make these appointments. Review of Systems ROS Limitations: Poor Historian Constitutional: COMPLAINS OF: Fever, DENIES: Weight loss Ears, nose, mouth, throat: DENIES: Throat pain, Hoarseness Respiratory: DENIES: Cough, Shortness of breath Cardiovascular: DENIES: Chest pain, Palpitations Gastrointestinal: COMPLAINS OF: Diarrhea, Nausea, DENIES: Abdominal pain, Vomiting Genitourinary: COMPLAINS OF: Urinary frequency, Urinary incontinence Musculoskeletal: COMPLAINS OF: Back pain, DENIES: Neck pain Integumentary: DENIES: Pruritus, Rash Hematologic/lymphatic: DENIES: Bruising, Lymphadenopathy Neurologic: COMPLAINS OF: Abnormal gait (States she has been unsteady on her feet since her hospitalization in June), DENIES: Headache Psychiatric: DENIES: Confusion (.), Hallucinations Past Family Social History Past Medical History Pancreatic cystic mass Alcoholism, states last drink was June 2017 LFT elevation Hypertension Depression with history of psychiatric hospitalization Hyperlipidemia Anxiety and depression ADD History of microscopic colitis Past Surgical History She denies any surgeries Reported Medications Per her PCP record from July 16, 2017 she is on: Norvasc 10 mg daily Lipitor 40 mg daily Metoprolol ER 50 mg daily Xanax 0.25 mg twice daily as needed Wellbutrin SR 150 mg twice daily Lasix 20 mg daily Adderall 30 mg XR daily Baclofen 10 mg 3 times daily Allergies: Coded Allergies: No Known Allergies (Verified Allergy, Unknown, 12/29/17) Family History Negative for pancreatic cancer Social History She does not smoke. She lives by herself. She states she is caring for her mother who is in a long term facility. She does have history of alcoholism but states she has not had anything to drink since June 2017. She works at [employer]. Physical Exam Vital Signs Vital Signs Date Time Temp Pulse Resp B/P (MAP) Pulse Ox O2 Delivery O2 Flow Rate FiO2 12/30/17 01:14 99.5 12/30/17 00:00 100.0 83 20 128/79 (95) 95 12/29/17 20:00 98.7 70 20 115/69 (84) 95 12/29/17 15:43 12/29/17 15:21 81 16 125/57 (79) 97 Room Air 12/29/17 14:07 99.9 87 16 134/66 (88) 93 Room Air 12/29/17 13:14 101.7 90 16 112/65 (81) 98 Room Air 12/29/17 12:58 98 Room Air 12/29/17 12:52 101.8 100 16 126/86 (99) 98 Physical Exam GENERAL: Pleasant but generally weak and malnourished appearing 62-year-old female. SKIN: No rashes, ecchymoses or lesions. Cool and dry. HEAD: Atraumatic. Normocephalic. EYES: Pupils equal round and reactive. Extraocular motions intact. No scleral icterus. No injection or drainage. ENT: Throat without erythema, tonsillar hypertrophy or exudate. Uvula midline. Airway patent. NECK: Trachea midline. No JVD or lymphadenopathy. Supple, nontender, no meningeal signs. CARDIOVASCULAR: Regular rate and rhythm without murmurs, gallops, or rubs. RESPIRATORY: Clear to auscultation. Breath sounds equal bilaterally. No wheezes , rales, or rhonchi. GASTROINTESTINAL: Abdomen soft, non-tender, nondistended. No hepato-splenomegaly , or palpable masses. No guarding. MUSCULOSKELETAL: No pedal edema. NEUROLOGICAL: Awake and alert. Motor and sensory grossly within normal limits. Generalized weakness and she is unable to sit up independently. Speech is normal. Laboratory Laboratory Tests Test 12/29/17 13:07 12/29/17 14:15 12/30/17 05:38 White Blood Count 10.6 8.5 Red Blood Count 5.09 4.02 Hemoglobin 14.9 12.0 Hematocrit 45.8 36.6 Mean Corpuscular Volume 90.1 91.1 Mean Corpuscular Hemoglobin 29.3 29.9 Mean Corpuscular Hemoglobin Concent 32.6 32.8 Red Cell Distribution Width 14.5 14.9 Platelet Count 226 202 Mean Platelet Volume 8.3 8.3 Neutrophils (%) (Auto) 77.0 68.7 Lymphocytes (%) (Auto) 13.2 15.8 Monocytes (%) (Auto) 8.4 14.4 Eosinophils (%) (Auto) 0.3 0.7 Basophils (%) (Auto) 1.1 0.4 Neutrophils # (Auto) 8.2 5.9 Lymphocytes # (Auto) 1.4 1.3 Monocytes # (Auto) 0.9 1.2 Eosinophils # (Auto) 0.0 0.1 Basophils # (Auto) 0.1 0.0 CBC Comment AUTO DIFF DIFF FINAL Differential Comment AUTO DIFF CONFIRMED Platelet Estimate NORMAL Platelet Morphology Comment NORMAL Blood Urea Nitrogen 22 14 Creatinine 1.70 1.10 Random Glucose 102 105 Total Protein 6.8 5.0 Albumin 2.3 1.6 Calcium Level 8.6 7.4 Magnesium Level 1.5 Alkaline Phosphatase 157 118 Aspartate Amino Transf (AST/SGOT) 75 53 Alanine Aminotransferase (ALT/SGPT) 33 28 Total Bilirubin 1.4 0.6 Sodium Level 131 143 Potassium Level 2.5 3.7 Chloride Level 95 114 Carbon Dioxide Level 25.0 20.5 Anion Gap 11 9 Estimat Glomerular Filtration Rate 31 50 Lactic Acid Level 1.8 Urine Collection Type CATH Urine Color YELLOW Urine Turbidity CLOUDY Urine pH 6.5 Urine Specific Clare 1.015 Urine Protein 100 Urine Glucose (UA) NEG Urine Ketones NEG Urine Occult Blood LARGE Urine Nitrite NEG Urine Bilirubin NEG Urine Urobilinogen 1.0 Urine Leukocyte Esterase LARGE Urine RBC 20-24 Urine WBC 50-99 Urine Squamous Epithelial Cells 0-2 Urine Bacteria MANY Microscopic Urinalysis Comment CULTURE INDICATED Protein Corrected Calcium 8.6 Date/Time Source Procedure Growth Status 12/29/17 13:06 Blood Peripheral Aerobic Blood Culture Pending Received 12/29/17 13:06 Blood Peripheral Anaerobic Blood Culture Pending Received 12/29/17 14:15 Urine Catheterized Urine Urine Culture Pending Received Result Diagram: 12/30/17 0538 12/30/17 0538 Imaging Last Impressions Chest X-Ray 12/29/17 1254 Signed Impressions: CONCLUSION: No acute cardiopulmonary process. Renal Ultrasound 12/29/17 0000 Signed Impressions: CONCLUSION: 1. Mild dilatation of the right collecting system. 2. Mild increased echogenicity of the kidneys which can suggest medical renal disease. Caprini VTE Risk Assessment Caprini VTE Risk Assessment: No/Low Risk (score <= 1) Caprini Risk Assessment Model Point Value = 1 Point Value = 2 Point Value = 3 Point Value = 5 Age 41-60 Minor surgery BMI > 25 kg/m2 Swollen legs Varicose veins or History of unexplained or recurrent spontaneous Oral contraceptives or hormone replacement Sepsis (< 1 month) Serious lung disease, including pneumonia (< 1 month) Abnormal pulmonary function Acute myocardial infarction Congestive heart failure (< 1 month) History of inflammatory bowel disease Medical patient at bed rest Age 61-74 Arthroscopic surgery Major open surgery (> 45 min) Laparoscopic surgery (> 45 min) Malignancy Confined to bed (> 72 hours) Immobilizing plaster cast Central venous access Age >= 75 History of VTE Family history of VTE Factor V Leiden Prothrombin [id number] Lupus anticoagulant Anticardiolipin antibodies Elevated serum homocysteine Heparin-induced thrombocytopenia Other congenital or acquired thrombophilia Stroke (< 1 month) Elective arthroplasty Hip, pelvis, or leg fracture Acute spinal cord injury (< 1 month) Prophylaxis Regimen Total Risk Factor Score Risk Level Prophylaxis Regimen 0-1 Low Early ambulation 2 Moderate Order ONE of the following: *Sequential Compression Device (SCD) *Heparin 5000 units SQ BID 3-4 Higher Order ONE of the following medications: *Heparin 5000 units SQ TID *Enoxaparin/Lovenox 40 mg SQ daily (WT < 150 kg, CrCl > 30 mL/min) *Enoxaparin/Lovenox 30 mg SQ daily (WT < 150 kg, CrCl > 10-29 mL/min) *Enoxaparin/Lovenox 30 mg SQ BID (WT < 150 kg, CrCl > 30 mL/min) AND/OR *Sequential Compression Device (SCD) 5 or more Highest Order ONE of the following medications: *Heparin 5000 units SQ TID (Preferred with Epidurals) *Enoxaparin/Lovenox 40 mg SQ daily (WT < 150 kg, CrCl > 30 mL/min) *Enoxaparin/Lovenox 30 mg SQ daily (WT < 150 kg, CrCl > 10-29 mL/min) *Enoxaparin/Lovenox 30 mg SQ BID (WT < 150 kg, CrCl > 30 mL/min) AND *Sequential Compression Device (SCD) Assessment and Plan Problem List: (1) Sepsis secondary to UTI ICD Codes: A41.9 - Sepsis, unspecified organism; N39.0 - Urinary tract infection, site not specified (2) Diarrhea ICD Codes: R19.7 - Diarrhea, unspecified (3) Cystic mass of pancreas ICD Codes: K86.2 - Cyst of pancreas (4) Moderate malnutrition ICD Codes: E44.0 - Moderate protein-calorie malnutrition (5) Weakness generalized ICD Codes: R53.1 - Weakness (6) Acute renal failure ICD Codes: N17.9 - Acute kidney failure, unspecified Status: Acute (7) Hypokalemia ICD Codes: E87.6 - Hypokalemia Status: Acute (8) Dehydration ICD Codes: E86.0 - Dehydration Status: Acute (9) H/O ETOH abuse ICD Codes: Z87.898 - Personal history of other specified conditions Assessment and Plan UTI, rule out sepsis - continue rocephin IV. continue IV fluids. hold BP meds. f /u urine and blood cultures. Severe hypokalemia - resolved. NAOMI with CKD 3- due to dehydration. improved cr now back to baseline. continue IVF one more day. ff BMP. Acute diarrhea - last colonoscopy 2014 with microscopic colitis and polyp. Will check C dif. Consult GI for this and the pancreatic cyst as she has been unable to followup. Pancreatic cystic mass - Consider repeat abd CT scan. Per GI notes she was supposed to have oncology consultation but she was unable to f/u. Consulted GI. Alcoholism, states last drink was June 2017. no signs of ETOH withdrawal on exam. continue CIWA protocol. LFT elevation - AST mildly elevated, less than previous. She has had a rather thorough workup through GI. Ff CMP. Hypertension - hold BP meds for now. Depression and anxiety with history of psychiatric hospitalization - cont welbutrin and xanax as needed. Hyperlipidemia - cont lipitor. ADD - hold aderrall. Moderate malnutrition and generalized weakness - add ensure to diet. consult PT. DVT px - SCDs/ Request Dr. Pichardo's recent office note. Physician Certification 2 Midnight Certification Type: Admission for Inpatient Services Order for Inpatient Services The services are ordered in accordance with Medicare regulations or non- Medicare payer requirements, as applicable. In the case of services not specified as inpatient-only, they are appropriately provided as inpatient services in accordance with the 2-midnight benchmark. Estimated LOS (days): 4 days is the estimated time the patient will need to remain in the hospital, assuming treatment plan goals are met and no additional complications. Post-Hospital Plan: SNF Problem Qualifiers (1) Acute renal failure: Qualified Codes: N17.9 - Acute kidney failure, unspecified Pilar Mckeon MD Dec 30, 2017 10:42
[2017-12-30] MEDS: SODIUM CHLOR 0.9% 1000 ML INJ 1,000 ML IV SCH ×2 (11:54→21:52)
[2017-12-30 12:00] VITALS: BP 120/70; PULSE 76; RESP 16; TEMP 97.3; O2SAT 98
[2017-12-30] MEDS: cefTRIAXone INJ 1,000 MG in SODIUM CHLORIDE 0.9% INJ 100 ML IV SCH (14:06)
[2017-12-30 16:00] VITALS: BP 118/70; PULSE 80; RESP 16; TEMP 97.3; O2SAT 93
[2017-12-30 20:00] VITALS: BP 150/67; PULSE 82; RESP 18; TEMP 99; O2SAT 96
[2017-12-31] VITALS: BP 127/62; PULSE 85; RESP 20; TEMP 98.8; O2SAT 93
[2017-12-31 06:03] LABS: AUTOMATED NEUTROPHIL # 6.2 TH/MM3 (1.8-7.7); BASOPHIL % 0.2 % (0.0-2.0); EOSINOPHIL # 0.2 TH/MM3 (0-0.4); EOSINOPHIL % 1.7 % (0.0-4.0); HEMOGLOBIN 12.3 GM/DL (11.6-15.3); LYMPH % 16.6 % (9.0-44.0); LYMPHOCYTE # 1.5 TH/MM3 (1.0-4.8); MEAN CELL VOLUME 88.9 FL (80.0-100.0); MEAN CORPUSCULAR HEMOGLOBIN 31.2 PG (27.0-34.0); MEAN CORPUSCULAR HGB CONC 35.1 % (32.0-36.0); MEAN PLATELET VOLUME 8.9 FL (7.0-11.0); MONO % 11.3 % (0.0-8.0); NEUT % 70.2 % (16.0-70.0); PLATELET COUNT 218 TH/MM3 (150-450); RED BLOOD COUNT 3.94 MIL/MM3 (4.00-5.30); RED CELL DISTRIBUTION WIDTH 15.4 % (11.6-17.2); WHITE BLOOD COUNT 8.9 TH/MM3 (4.0-11.0)
[2017-12-31 06:05] LABS: CHLORIDE 111 MEQ/L (98-107); SODIUM (NA) 142 MEQ/L (136-145)
[2017-12-31 06:07] LABS: CALCIUM 7.8 MG/DL (8.5-10.1)
[2017-12-31 06:08] LABS: ALBUMIN 1.6 GM/DL (3.4-5.0); BICARBONATE 23.3 MEQ/L (21.0-32.0); BLOOD UREA NITROGEN 9 MG/DL (7-18); GLUCOSE,RANDOM 105 MG/DL (74-106)
[2017-12-31 06:11] LABS: ALT (GPT) 28 U/L (10-53); AST (GOT) 42 U/L (15-37); CREATININE 0.89 MG/DL (0.50-1.00); GLOMERULAR FILTRATION RATE 64 ML/MIN (>89)
[2017-12-31 06:12] LABS: TOTAL BILIRUBIN ADULT 0.3 MG/DL (0.2-1.0)
[2017-12-31 06:13] LABS: TOTAL PROTEIN 5.4 GM/DL (6.4-8.2)
[2017-12-31 06:14] LABS: ALKALINE PHOSPHATASE 121 U/L (45-117)
[2017-12-31 08:00] VITALS: BP 122/80; PULSE 80; RESP 16; TEMP 97.2; O2SAT 96
[2017-12-31] MEDS: buPROPion HCL 150 MG SUSTAINED RELEASE TAB PO SCH ×2 (08:10→19:54)
[2017-12-31] MEDS: SODIUM CHLORIDE 0.9% FLUSH 10 ML FLUSH IV FLUSH SCH ×2 (08:11→19:52)
[2017-12-31] MEDS: SODIUM CHLOR 0.9% 1000 ML INJ 1,000 ML IV SCH (08:13)
[2017-12-31] MEDS ORDERED: POTASSIUM CHLORIDE 10 MEQ CONTROLLED RELEASE TAB PO ONE (11:15)
[2017-12-31] MEDS: LACTOBACILLUS ACIDOPHILUS TAB PO SCH ×2 (11:57→17:33)
[2017-12-31 12:00] VITALS: BP 127/71; PULSE 77; RESP 18; TEMP 98; O2SAT 97
--- NOTE | 2017-12-31 12:23 | HHI.FF ---
Face to Face Verification Diagnosis: (1) Hyponatremia (2) Weakness generalized (3) Gait instability (4) Cystic mass of pancreas (5) Sepsis secondary to UTI Physical Therapy Order: Evaluate and Treat Home Health Nursing Order: Nursing assessment with vital signs Home Health Aide Order: To Assist In: Bathing and personal care I have seen patient Jayashree Delcid on 12/31/17. My clinical findings support the need for the requested home health care services because: Deconditioned w/ increased weakness Need for psychosocial assistance High risk of falls I certify that my clinical findings support that this patient is homebound because: Unsteady gait/balance Unsafe to leave home unassisted Need for psychosocial assistance Pilar Mckeon MD Dec 31, 2017 12:23
--- NOTE | 2017-12-31 12:28 | HHI.PR ---
Subjective Remarks Still having urinary frequency, IV fluids are still on. Afebrile. No further diarrhea, has not had BM in 2 days. Patient remains quite weak, PT saw her yesterday, her balance was poor. HHC and walker were recommended. Objective Vitals Vital Signs Date Time Temp Pulse Resp B/P (MAP) Pulse Ox O2 Delivery O2 Flow Rate FiO2 12/31/17 08:00 97.2 80 16 122/80 (94) 96 12/31/17 00:00 98.8 85 20 127/62 (83) 93 12/30/17 20:00 99.0 82 18 150/67 (94) 96 12/30/17 16:00 97.3 80 16 118/70 (86) 93 Result Diagram: 12/31/17 0515 12/31/17 0515 Imaging Last Impressions Chest X-Ray 12/29/17 1254 Signed Impressions: CONCLUSION: No acute cardiopulmonary process. Renal Ultrasound 12/29/17 0000 Signed Impressions: CONCLUSION: 1. Mild dilatation of the right collecting system. 2. Mild increased echogenicity of the kidneys which can suggest medical renal disease. Objective Remarks GENERAL: Pleasant but generally weak and malnourished appearing 62-year-old female. SKIN: No rashes, ecchymoses or lesions. Cool and dry. HEAD: Atraumatic. Normocephalic. EYES: Pupils equal round and reactive. Extraocular motions intact. No scleral icterus. No injection or drainage. ENT: Throat without erythema, tonsillar hypertrophy or exudate. Uvula midline. Airway patent. NECK: Trachea midline. No JVD or lymphadenopathy. Supple, nontender, no meningeal signs. CARDIOVASCULAR: Regular rate and rhythm without murmurs, gallops, or rubs. RESPIRATORY: Clear to auscultation. Breath sounds equal bilaterally. No wheezes , rales, or rhonchi. GASTROINTESTINAL: Abdomen soft, non-tender, nondistended. No hepato-splenomegaly , or palpable masses. No guarding. MUSCULOSKELETAL: No pedal edema. NEUROLOGICAL: Awake and alert. Motor and sensory grossly within normal limits. Generalized weakness and she is unable to sit up independently. Speech is normal. A/P Problem List: (1) Sepsis secondary to UTI ICD Codes: A41.9 - Sepsis, unspecified organism; N39.0 - Urinary tract infection, site not specified (2) Diarrhea ICD Codes: R19.7 - Diarrhea, unspecified (3) Cystic mass of pancreas ICD Codes: K86.2 - Cyst of pancreas (4) Moderate malnutrition ICD Codes: E44.0 - Moderate protein-calorie malnutrition (5) Weakness generalized ICD Codes: R53.1 - Weakness (6) Acute renal failure ICD Codes: N17.9 - Acute kidney failure, unspecified Status: Acute (7) Hypokalemia ICD Codes: E87.6 - Hypokalemia Status: Acute (8) Dehydration ICD Codes: E86.0 - Dehydration Status: Acute (9) H/O ETOH abuse ICD Codes: Z87.898 - Personal history of other specified conditions Assessment and Plan UTI, rule out sepsis - blood cultures negative x 2 days. UC with klebsiella pansensitive. continue rocephin IV one more dose then start cipro. continue IV fluids. Severe hypokalemia - improving. K 3 today, give 40 meq kcl PO. NAOMI with CKD 3- due to dehydration. improved cr now back to baseline. DC IVF. ff BMP. Acute diarrhea - resolved. last colonoscopy 2014 with microscopic colitis and polyp. DC C dif pcr order. Pancreatic cystic mass - Consider repeat abd CT scan. Per GI notes she was supposed to have oncology consultation but she was unable to f/u. Consulted GI for followup. . Alcoholism, states last drink was June 2017. no signs of ETOH withdrawal on exam. continue CIWA protocol. LFT elevation - AST mildly elevated, downtrending, less than previous. She has had a rather thorough workup through GI. Ff CMP. Hypertension - hold BP meds for now. she is normotensive. Depression and anxiety with history of psychiatric hospitalization - cont welbutrin and xanax as needed. Hyperlipidemia - cont lipitor. ADD - hold aderrall. Moderate malnutrition and generalized weakness with gait instability- add ensure to diet. cont PT. DVT px - SCDs I requested DR. Dobbs's recent notes - not received - faxed another request today. Need to obtain list of home medications. Problem Qualifiers (1) Acute renal failure: Qualified Codes: N17.9 - Acute kidney failure, unspecified Pilar Mckeon MD Dec 31, 2017 12:28
[2017-12-31] MEDS: cefTRIAXone INJ 1,000 MG in SODIUM CHLORIDE 0.9% INJ 100 ML IV SCH (15:27)
[2017-12-31 16:00] VITALS: BP 128/70; PULSE 77; RESP 16; TEMP 98; O2SAT 98
[2017-12-31] MEDS: NS + KCL 20 MEQ INJ 1,000 ML IV SCH (17:37)
[2017-12-31] MEDS: CIPROFLOXACIN 500 MG TAB PO SCH (19:54)
[2017-12-31 20:00] VITALS: BP 144/65; PULSE 79; RESP 18; TEMP 98.5; O2SAT 94
[2018-01-01] VITALS: BP 134/65; PULSE 85; RESP 18; TEMP 99; O2SAT 94
[2018-01-01] MEDS: NS + KCL 20 MEQ INJ 1,000 ML IV SCH (05:50)
[2018-01-01 07:06] LABS: CHLORIDE 112 MEQ/L (98-107); SODIUM (NA) 145 MEQ/L (136-145)
[2018-01-01 07:14] LABS: ALBUMIN 1.4 GM/DL (3.4-5.0); BICARBONATE 24.1 MEQ/L (21.0-32.0); CALCIUM 7.9 MG/DL (8.5-10.1); GLUCOSE,RANDOM 126 MG/DL (74-106); MAGNESIUM 1.1 MG/DL (1.5-2.5)
[2018-01-01 07:15] LABS: BLOOD UREA NITROGEN 9 MG/DL (7-18)
[2018-01-01 07:17] LABS: ALT (GPT) 24 U/L (10-53); AST (GOT) 27 U/L (15-37); CREATININE 0.79 MG/DL (0.50-1.00); GLOMERULAR FILTRATION RATE 74 ML/MIN (>89)
[2018-01-01 07:19] LABS: TOTAL BILIRUBIN ADULT 0.4 MG/DL (0.2-1.0); TOTAL PROTEIN 5.2 GM/DL (6.4-8.2)
[2018-01-01 07:20] LABS: ALKALINE PHOSPHATASE 92 U/L (45-117)
[2018-01-01 07:50] VITALS: BP 136/70; PULSE 79; RESP 20; TEMP 98.4; O2SAT 93
[2018-01-01] MEDS: SODIUM CHLORIDE 0.9% FLUSH 10 ML FLUSH IV FLUSH SCH ×2 (09:00→21:55)
[2018-01-01] MEDS: CIPROFLOXACIN 500 MG TAB PO SCH ×2 (09:07→21:55)
[2018-01-01] MEDS: LACTOBACILLUS ACIDOPHILUS TAB PO SCH ×3 (09:07→17:33)
[2018-01-01] MEDS: buPROPion HCL 150 MG SUSTAINED RELEASE TAB PO SCH ×2 (09:07→21:55)
[2018-01-01 11:50] VITALS: BP 133/69; PULSE 78; RESP 20; TEMP 97.4; O2SAT 94
--- NOTE | 2018-01-01 12:06 | HHI.PR ---
Subjective Remarks Not eating, states not hungry.Denies abdominal pain , no diarrhea, has not had a bowel movement since admission. States not getting up to the bathroom due to scds. States has hx of colitis. Does not recall seeing GI earlier this year. Objective Vitals Vital Signs Date Time Temp Pulse Resp B/P (MAP) Pulse Ox O2 Delivery O2 Flow Rate FiO2 01/01/18 07:50 98.4 79 20 136/70 (92) 93 01/01/18 00:00 99.0 85 18 134/65 (88) 94 12/31/17 20:00 98.5 79 18 144/65 (91) 94 12/31/17 16:00 98.0 77 16 128/70 (89) 98 12/31/17 12:00 98.0 77 18 127/71 (89) 97 Result Diagram: 12/31/17 0515 01/01/18 0629 Imaging Last Impressions Chest X-Ray 12/29/17 1254 Signed Impressions: CONCLUSION: No acute cardiopulmonary process. Renal Ultrasound 12/29/17 0000 Signed Impressions: CONCLUSION: 1. Mild dilatation of the right collecting system. 2. Mild increased echogenicity of the kidneys which can suggest medical renal disease. Objective Remarks GENERAL: Pleasant and cooperative, NAD HEAD: Atraumatic. Normocephalic. EYES: Pupils equal round and reactive. Extraocular motions intact. ENT: partially edentolous. ARDIOVASCULAR: Regular rate and rhythm without murmurs, gallops, or rubs. RESPIRATORY: Clear to auscultation. Breath sounds equal bilaterally. No wheezes , rales, or rhonchi. GASTROINTESTINAL: Abdomen soft, non-tender, nondistended. No hepato-splenomegaly , or palpable masses. No guarding. MUSCULOSKELETAL: No pedal edema. NEUROLOGICAL: Awake and alert. Motor and sensory grossly within normal limits. Speech is normal. A/P Problem List: (1) Sepsis secondary to UTI ICD Codes: A41.9 - Sepsis, unspecified organism; N39.0 - Urinary tract infection, site not specified Plan: klebsiella was senstive to rocephin now on cipro (2) Diarrhea ICD Codes: R19.7 - Diarrhea, unspecified Status: Resolved (3) Cystic mass of pancreas ICD Codes: K86.2 - Cyst of pancreas Status: Chronic Plan: awaiting GI input (4) Moderate malnutrition ICD Codes: E44.0 - Moderate protein-calorie malnutrition Plan: still not eating , using ensure. will change diet to mechanical soft (5) Weakness generalized ICD Codes: R53.1 - Weakness Plan: getting PT encourage mobility (6) Acute renal failure ICD Codes: N17.9 - Acute kidney failure, unspecified Status: Resolved Plan: resolved with hydration, taking po fluids will stop IV fluids and observe if she is able to maintain hydration, push fluids (7) Hypokalemia ICD Codes: E87.6 - Hypokalemia Status: Acute Plan: slowly improving replace po today and replace magnesium as well (8) Dehydration ICD Codes: E86.0 - Dehydration Status: Resolved (9) H/O ETOH abuse ICD Codes: Z87.898 - Personal history of other specified conditions Status: Chronic Plan: states has had no alcohol since admission in jun 2017 Assessment and Plan Problem Qualifiers (1) Acute renal failure: Qualified Codes: N17.9 - Acute kidney failure, unspecified Lawanda Negron MD Jan 01, 2018 12:06
[2018-01-01] MEDS: ENOXAPARIN SODIUM 30 MG/0.3 ML SYRINGE SQ SCH (12:25)
[2018-01-01] MEDS: POTASSIUM CHLORIDE 20 MEQ CONTROLLED RELEASE TAB PO SCH ×2 (12:26→21:55)
[2018-01-01] MEDS: MAGNESIUM SULFATE 1 GM PREMIX 100 ML IV SCH ×2 (12:27→13:24)
[2018-01-01 15:50] VITALS: BP 139/63; PULSE 78; RESP 20; TEMP 97.2; O2SAT 96
--- NOTE | 2018-01-01 17:37 | PD.CONS ---
HPI History of Present Illness This is a 62 year old female with past medical history of alcoholism , pancreatic cyst, hypertension, chronic kidney disease stage III who presented with complaints of 3 week history of urinary frequency and incontinence. GI have been consulted for pancreatic cyst and diarrhea. s/p EUS 06/18/17---> there was a large 4 x 6 cm pancreatic head cyst this was a simple cyst a 19-gauge needle was inserted with ease bilious fluid was noted to be coming out the cyst was completely drained and the fluid was sent for analysis. Simple pancreatic cyst most likely to be either a pseudocyst or most likely bilious collection. Fluid analysis with normal lipase. She had a follow-up CT with pancreatic protocol on August 10 which showed a stable 5 cm cystic mass, and a chronic proximal small left ureteral stone with mild hydronephrosis which was unchanged. The patient referred to oncology for this cystic mass however due to finances she was unable to do that. Pt with hx of alcohol abuse but quit in June of 2017. LFTs were elevated but normalized. Pt states had diarrhea for few days, but hasn't had BM for a week. Denies nausea, vomiting, abd pain, hematemesis, or hematochezia. (Marielena Estrada) PFSH Past Medical History Pancreatic cystic mass Alcoholism, states last drink was June 2017 LFT elevation Hypertension Depression with history of psychiatric hospitalization Hyperlipidemia Anxiety and depression ADD History of microscopic colitis Past Surgical History She denies any surgeries (Marielena Estrada) Coded Allergies: No Known Allergies (Verified Allergy, Unknown, 12/29/17) Medications Current Medications Medications (Trade) Dose Ordered Sig/Bruce Route Start Time Stop Time Status Last Admin (NS Flush) 2 ml UNSCH PRN IV FLUSH 12/29/17 14:30 (NS Flush) 2 ml BID IV FLUSH 12/29/17 21:00 12/31/17 08:11 (Zofran Inj) 4 mg Q6H PRN IVP 12/29/17 14:30 (Tylenol) 650 mg Q6H PRN PO 12/29/17 14:30 12/30/17 00:14 (Milk Of Magnesia Liq) 30 ml Q12H PRN PO 12/29/17 14:30 (Senokot) 17.2 mg Q12H PRN PO 12/29/17 14:30 (Dulcolax Supp) 10 mg DAILY PRN RECTAL 12/29/17 14:30 (Lactulose Liq) 30 ml DAILY PRN PO 12/29/17 14:30 (Xanax) 0.25 mg BID PRN PO 12/29/17 14:45 (Wellbutrin Sr) 150 mg BID PO 12/29/17 21:00 01/01/18 09:07 (Catapres) 0.1 mg Q6H PRN PO 12/29/17 15:00 (Romazicon Inj) 0.2 mg Q1M PRN IV PUSH 12/29/17 15:00 (Ativan) 1 mg Q4H PRN PO 12/29/17 15:00 (Ativan Inj) 1 mg Q4H PRN IV PUSH 12/29/17 15:00 (Ativan) 2 mg Q2H PRN PO 12/29/17 15:00 (Haldol Inj) 2 mg Q15M PRN IM 12/29/17 15:00 (Cipro) 500 mg Q12HR PO 12/31/17 21:00 01/01/18 09:07 (Lactinex) 1 tab TID PO 12/31/17 13:00 01/01/18 12:27 (Lovenox Inj) 30 mg Q24H SQ 01/01/18 13:00 01/01/18 12:25 (KCl) 20 meq Q12HR PO 01/01/18 13:00 01/01/18 12:26 Family History No family hx of pancreatitis or colon cancer Social History She does not smoke. She does have history of alcoholism but states she has not had anything to drink since June 2017. (Marielena Estrada) Review of Systems Constitutional: COMPLAINS OF: Fever Endocrine: COMPLAINS OF: Polyuria Eyes: DENIES: Double Vision Ears, nose, mouth, throat: DENIES: Hoarseness Respiratory: DENIES: Shortness of breath Cardiovascular: DENIES: Lower Extremity Edema Gastrointestinal: COMPLAINS OF: Diarrhea, DENIES: Abdominal pain, Black stools , Bloody stools, Constipation, Nausea, Vomiting, Difficulty Swallowing, Anorexia , Odynophagia, Swelling of Abdomen, Heartburn, Hematemesis Genitourinary: DENIES: Hematuria Musculoskeletal: DENIES: Neck pain Integumentary: DENIES: Jaundice Hematologic/lymphatic: DENIES: Bruising Immunologic/allergic: DENIES: Eczema Neurologic: DENIES: Abnormal gait Psychiatric: DENIES: Anxiety (Marielena Estrada CHARLY) GI Exam Vitals I&O Vital Signs Date Time Temp Pulse Resp B/P (MAP) Pulse Ox O2 Delivery O2 Flow Rate FiO2 01/01/18 15:50 97.2 78 20 139/63 (88) 96 01/01/18 11:50 97.4 78 20 133/69 (90) 94 01/01/18 07:50 98.4 79 20 136/70 (92) 93 01/01/18 00:00 99.0 85 18 134/65 (88) 94 12/31/17 20:00 98.5 79 18 144/65 (91) 94 I/O 12/31/17 12/31/17 12/31/17 01/01/18 01/01/18 01/01/18 07:00 15:00 23:00 07:00 15:00 23:00 Intake Total 480 ml 1710 ml 1190 ml 704 ml Output Total 1000 ml 1000 ml Balance -520 ml 1710 ml 190 ml 704 ml Intake Oral 480 ml 600 ml 360 ml IV Total 1110 ml 830 ml 704 ml Output Urine Total 1000 ml 1000 ml # Bowel Movements 0 Imaging Last Impressions Chest X-Ray 12/29/17 1254 Signed Impressions: CONCLUSION: No acute cardiopulmonary process. Renal Ultrasound 12/29/17 0000 Signed Impressions: CONCLUSION: 1. Mild dilatation of the right collecting system. 2. Mild increased echogenicity of the kidneys which can suggest medical renal disease. Laboratory Test 01/01/18 06:29 01/01/18 12:32 Blood Urea Nitrogen 9 MG/DL Creatinine 0.79 MG/DL Random Glucose 126 MG/DL Total Protein 5.2 GM/DL Albumin 1.4 GM/DL Calcium Level 7.9 MG/DL Magnesium Level 1.1 MG/DL Alkaline Phosphatase 92 U/L Aspartate Amino Transf (AST/SGOT) 27 U/L Alanine Aminotransferase (ALT/SGPT) 24 U/L Total Bilirubin 0.4 MG/DL Sodium Level 145 MEQ/L Potassium Level 3.4 MEQ/L Chloride Level 112 MEQ/L Carbon Dioxide Level 24.1 MEQ/L Anion Gap 9 MEQ/L Estimat Glomerular Filtration Rate 74 ML/MIN Vitamin B12 Level 787 PG/ML Date/Time Source Procedure Growth Status 12/29/17 13:06 Blood Peripheral Aerobic Blood Culture - Preliminary NO GROWTH IN 3 DAYS Resulted 12/29/17 13:06 Blood Peripheral Anaerobic Blood Culture - Preliminary NO GROWTH IN 3 DAYS Resulted 12/29/17 14:15 Urine Catheterized Urine Urine Culture - Final Klebsiella Pneumoniae Complete Physical Examination HEENT: Pupils round and reactive to light; normocephalic; atraumatic; no jaundice. Throat is clear. CHEST: Chest is clear to auscultation and percussion. CARDIAC: Regular rate and rhythm with no murmur gallop or rubs. ABDOMEN: Soft, nondistended, nontender; no hepatosplenomegaly; bowel sounds are present in all four quadrants. EXTREMITIES: No clubbing, cyanosis, or edema. SKIN: Normal; no rash; no jaundice. DEVELOPMENTAL THERAPIST: No focal deficits; alert and oriented times three. (Marielena Estrada) Assessment and Plan Plan - Pancreatic cyst- s/p EUS 06/18/17---> there was a large 4 x 6 cm pancreatic head cyst this was a simple cyst a 19-gauge needle was inserted with ease bilious fluid was noted to be coming out the cyst was completely drained and the fluid was sent for analysis. Simple pancreatic cyst most likely to be either a pseudocyst or most likely bilious collection. Fluid analysis with normal lipase. She had a follow-up CT with pancreatic protocol on August 10 which showed a stable 5 cm cystic mass, and a chronic proximal small left ureteral stone with mild hydronephrosis which was unchanged. The patient referred to oncology for this cystic mass however due to finances she was unable to do that. Pt with hx of alcohol abuse but quit in June of 2017. LFTs were elevated but normalized. Pt states had diarrhea for few days, but hasn't had BM for a week. - Acute diarrhea - last colonoscopy 2014 with microscopic colitis and polyp. Stools ordered for C diff but pt hasn't had bm - UTI- on bx - hypertension, chronic kidney disease stage III per attending Plan: - [facility]ANKIE - CT with pancreatic protocol - CEA, AFP, CA19-9 - S/p Benign EUS last yr - Supportive care - Pt seen and examined by Dr. Peter and myself and this note is written on her behalf. (Marielena Estrada) Physician Comments seen, examined agree with above this patient name was found on the list, checked with nurse -consult still required, as per dr Redmond he was never notified about this consult (Chapis Peter MD) Marielena Estrada Jan 01, 2018 17:37 Chapis Peter MD Jan 01, 2018 18:31
[2018-01-01] MEDS ORDERED: DIATRIZOATE MEGLUM/DIATRIZOATE SOD 9 ML CUP PO ONE (18:15)
[2018-01-01 20:00] VITALS: BP 134/69; PULSE 78; RESP 18; TEMP 97.3; O2SAT 95
--- NOTE | 2018-01-01 22:00 | RADRPT ---
EXAM DATE: 01/01/2018 9:50 PM EDT AGE/SEX: 62 years / Female INDICATIONS: Evaluate pancreatic cyst which has decreased in size since prior scan. CLINICAL DATA: This is the patient's initial encounter. Patient reports that signs and symptoms have been present for 4 - 6 months and indicates a pain score of 0/10. MEDICAL/SURGICAL HISTORY: Hypertension. Cholecystectomy. ORAL CONTRAST: Prescribed oral contrast ingested. RADIATION DOSE: 20.82 CTDI (mGy) COMPARISON: [facility] – [place], CT ABDOMEN & PELVIS W/O CONTRAST, 08/05/2017. . TECHNIQUE: Multiple contiguous axial images were obtained through the abdomen following bolus infusi on of 95 ml Omnipaque 350 (iohexol) nonionic water-soluble contrast as a single exam dose. Prescrib ed oral contrast ingested. Using automated exposure control and adjustment of the mA and/or kV accor ding to patient size, radiation dose was kept as low as reasonably achievable to obtain optimal diagn ostic quality images. DICOM format image data is available electronically for review and comparison. FINDINGS: There is a complex pancreatic cyst extending off the head of the pancreas. This measures about 4.4 cm in oblique transverse diameter on today's exam compared with a previous measurement of about 4.8 cm at the same location. There is a mild left-sided hydronephrosis. No right-sided hydronephrosis. There is some heterogeneous enhancement of the left kidney possibly related to mild obstructive uropathy. The distal left ureter is not visualized. Small bilateral pleural effusions with dependent atelectasis in the lungs. No acute bony abnormality. CONCLUSION: 1. Slight interval decrease in size of pancreatic cyst compared with August 05, 2017. 2. Small bilateral pleural effusions. 3. Previous cholecystectomy without biliary ductal dilatation. 4. Mild left-sided hydronephrosis with heterogeneous enhancement of the left kidney could be related to mild obstructive uropathy. Tiny bilateral renal cysts. Electronically signed by: Corbin Limon MD 01/01/2018 9:59 PM EDT
[2018-01-01] MEDS ORDERED: IOHEXOL 350 MG/ML 10 ML VIAL (for RAD DIAG) IVCONTRAST ONE (22:18)
[2018-01-02] VITALS: BP 125/72; PULSE 80; RESP 18; TEMP 96.7; O2SAT 94
[2018-01-02 06:44] LABS: BICARBONATE 26.5 MEQ/L (21.0-32.0); CALCIUM 8.2 MG/DL (8.5-10.1); CREATININE 0.59 MG/DL (0.50-1.00); MAGNESIUM 1.5 MG/DL (1.5-2.5)
[2018-01-02 08:00] VITALS: BP 133/63; PULSE 95; RESP 20; TEMP 97.2; O2SAT 95
[2018-01-02] MEDS: POTASSIUM CHLORIDE 20 MEQ CONTROLLED RELEASE TAB PO SCH ×2 (08:32→20:14)
[2018-01-02] MEDS: buPROPion HCL 150 MG SUSTAINED RELEASE TAB PO SCH ×2 (08:32→20:13)
[2018-01-02] MEDS: LACTOBACILLUS ACIDOPHILUS TAB PO SCH ×3 (08:32→18:03)
[2018-01-02] MEDS: CIPROFLOXACIN 500 MG TAB PO SCH ×2 (08:32→20:13)
[2018-01-02] MEDS: SODIUM CHLORIDE 0.9% FLUSH 10 ML FLUSH IV FLUSH SCH ×2 (08:33→20:14)
[2018-01-02 08:54] LABS: CARCINOEMBRYONIC ANTIGEN 1.1 NG/ML (0.2-5.0)
[2018-01-02 09:31] LABS: CA 19-9 20.5 U/ML (0.0-35.0)
[2018-01-02 12:00] VITALS: BP 144/67; PULSE 75; RESP 20; TEMP 97.5; O2SAT 95
[2018-01-02] MEDS: ENOXAPARIN SODIUM 30 MG/0.3 ML SYRINGE SQ SCH (13:20)
--- NOTE | 2018-01-02 17:40 | HHI.GIFU ---
Subjective Remarks Patient is sitting up in the chair currently eating small amounts of dinner Hemoglobin 12.3 LFTs normalized on 01/01/2018 Patient states multiple bowel movements today but formed Currently denies any nausea vomiting or abdominal pain (Kaylin Marshall) Objective Vitals I&O Vital Signs Date Time Temp Pulse Resp B/P (MAP) Pulse Ox O2 Delivery O2 Flow Rate FiO2 01/02/18 16:00 01/02/18 12:00 97.5 75 20 144/67 (92) 95 01/02/18 08:00 97.2 95 20 133/63 (86) 95 01/02/18 00:00 96.7 80 18 125/72 (89) 94 01/01/18 20:00 97.3 78 18 134/69 (90) 95 I/O 01/01/18 01/01/18 01/01/18 01/02/18 01/02/18 01/02/18 07:00 15:00 23:00 07:00 15:00 23:00 Intake Total 1190 ml 704 ml 774 ml 240 ml 120 ml Output Total 1000 ml 850 ml 1500 ml Balance 190 ml 704 ml -76 ml -1260 ml 120 ml Intake Oral 360 ml 774 ml 240 ml 120 ml IV Total 830 ml 704 ml Output Urine Total 1000 ml 850 ml 1500 ml # Bowel Movements 0 1 Laboratory Laboratory Tests Test 01/02/18 05:57 Blood Urea Nitrogen 8 Creatinine 0.59 Random Glucose 103 Calcium Level 8.2 Magnesium Level 1.5 Sodium Level 139 Potassium Level 3.9 Chloride Level 104 Carbon Dioxide Level 26.5 Anion Gap 9 Estimat Glomerular Filtration Rate 104 Tumor Marker Alpha Fetoprotein 1.3 Carcinoembryonic Antigen 1.1 CA 19-9 Antigen 20.5 Date/Time Source Procedure Growth Status 12/29/17 13:06 Blood Peripheral Aerobic Blood Culture - Preliminary NO GROWTH IN 4 DAYS Resulted 12/29/17 13:06 Blood Peripheral Anaerobic Blood Culture - Preliminary NO GROWTH IN 4 DAYS Resulted 12/29/17 14:15 Urine Catheterized Urine Urine Culture - Final Klebsiella Pneumoniae Complete Imaging Last Impressions Abdomen CT 01/01/18 0000 Signed Impressions: CONCLUSION: 1. Slight interval decrease in size of pancreatic cyst compared with July 132017. 2. Small bilateral pleural effusions. 3. Previous cholecystectomy without biliary ductal dilatation. 4. Mild left-sided hydronephrosis with heterogeneous enhancement of the left k idney could be related to mild obstructive uropathy. Tiny bilateral renal cysts . Chest X-Ray 12/29/17 1254 Signed Impressions: CONCLUSION: No acute cardiopulmonary process. Renal Ultrasound 12/29/17 0000 Signed Impressions: CONCLUSION: 1. Mild dilatation of the right collecting system. 2. Mild increased echogenicity of the kidneys which can suggest medical renal disease. Physical Exam HEENT: Paleness, normocephalic; atraumatic; no jaundice NECK: Supple. CHEST: Even, unlabored CARDIAC: Regular rate and rhythm ABDOMEN: Round, soft, nondistended, nontender to light palpation; bowel sounds are present in all four quadrants. EXTREMITIES: No clubbing, cyanosis, or edema. SKIN: Pale no rash LOAN INSPECTOR: Answers simple questions, but fair to poor historian on history (Kaylin Marshall) Assessment and Plan Plan - Pancreatic cyst- s/p EUS 06/18/17---> there was a large 4 x 6 cm pancreatic head cyst this was a simple cyst a 19-gauge needle was inserted with ease bilious fluid was noted to be coming out the cyst was completely drained and the fluid was sent for analysis. Simple pancreatic cyst most likely to be either a pseudocyst or most likely bilious collection. Fluid analysis with normal lipase. She had a follow-up CT with pancreatic protocol on August 10 which showed a stable 5 cm cystic mass, and a chronic proximal small left ureteral stone with mild hydronephrosis which was unchanged. The patient referred to oncology for this cystic mass however due to finances she was unable to do that. Pt with hx of alcohol abuse but quit in June of 2017. LFTs were elevated but normalized. Pt states had diarrhea for few days, but hasn't had BM for a week. - Acute diarrhea - last colonoscopy 2014 with microscopic colitis and polyp. Stools ordered for C diff but pt hasn't had bm - UTI- on bx - hypertension, chronic kidney disease stage III per attending 01/02/2018 patient is resting in the room currently asymptomatic with any nausea vomiting or abdominal pain. CT scan noted from 01/01/2018 slight interval decrease in size of pancreatic cyst compared to July 2017 Bilateral pleural effusions. Previous cholecystectomy without biliary ductal dilatation, labs show current hemoglobin 12.3, LFTs normal from 01/01/2018. After reviewing the record, recommendation from office visit in July 2017 stated stable pseudocyst and advised patient to follow-up with oncology. To my knowledge there was no follow -up done per patient. AFP 1.3, CEA 1.1, CA 19 20.5. Patient appears to be noncompliant with her follow-up. GI still recommends follow-up with oncology from recommendations of July 2017. Inpatient hospital versus outpatient. Discussed with Dr. Peter Plan: - FRANKIE, and continue to encourage increased activity in the room and up in chair -Recommend patient follow-up with oncology as per July [address] Chowdary - S/p Benign EUS last yr per the record -Monitor labs -Alcohol abstinence - Supportive care - Pt seen and examined by Dr. Peter and myself and this note is written on her behalf. (Kaylin Marshall) Physician Comments discussed with patient recommended oncology evaluation in vs op -states she will see them op if not possible op we will consult inpt as she has not been very complaint with recommendations (Chapis Peter MD) Kaylin Marshall Jan 02, 2018 17:40 Chapis Peter MD Jan 02, 2018 19:06
--- NOTE | 2018-01-02 18:40 | HHI.PR ---
Subjective Remarks ate today, had bm's, no abdominal pain, states after prompting that she did she GI in July and recalled she was refered to oncology. States did not follow up with them since she lost her job in June and had no finances. Is now working at [employer] states still does not think she has the money to see oncology. Objective Vitals Vital Signs Date Time Temp Pulse Resp B/P (MAP) Pulse Ox O2 Delivery O2 Flow Rate FiO2 01/02/18 16:00 01/02/18 12:00 97.5 75 20 144/67 (92) 95 01/02/18 08:00 97.2 95 20 133/63 (86) 95 01/02/18 00:00 96.7 80 18 125/72 (89) 94 01/01/18 20:00 97.3 78 18 134/69 (90) 95 01/02/18 01/02/18 01/03/18 15:00 23:00 07:00 Intake Total 120 ml Balance 120 ml Intake Oral 120 ml # Voids 1 Result Diagram: 12/31/17 0515 01/02/18 0557 Imaging Last Impressions Chest X-Ray 12/29/17 1254 Signed Impressions: CONCLUSION: No acute cardiopulmonary process. Renal Ultrasound 12/29/17 0000 Signed Impressions: CONCLUSION: 1. Mild dilatation of the right collecting system. 2. Mild increased echogenicity of the kidneys which can suggest medical renal disease. Objective Remarks GENERAL: Pleasant and cooperative, NAD HEAD: Atraumatic. Normocephalic. EYES: Pupils equal round and reactive. Extraocular motions intact. ENT: partially edentolous. CARDIOVASCULAR: Regular rate and rhythm without murmurs, gallops, or rubs. RESPIRATORY: Clear to auscultation. Breath sounds equal bilaterally. No wheezes , rales, or rhonchi. GASTROINTESTINAL: Abdomen soft, non-tender, nondistended. No hepato-splenomegaly , or palpable masses. No guarding. MUSCULOSKELETAL: No pedal edema. NEUROLOGICAL: Awake and alert. Motor and sensory grossly within normal limits. Speech is normal. A/P Problem List: (1) Sepsis secondary to UTI ICD Codes: A41.9 - Sepsis, unspecified organism; N39.0 - Urinary tract infection, site not specified Plan: klebsiella was senstive to rocephin now on cipro, tolerating po (2) Diarrhea ICD Codes: R19.7 - Diarrhea, unspecified Status: Resolved (3) Cystic mass of pancreas ICD Codes: K86.2 - Cyst of pancreas Status: Chronic Plan: seen by GI and ct scan ordered. Cyst is slightly smaller, improved seen by GI, will need to follow with oncology (4) Moderate malnutrition ICD Codes: E44.0 - Moderate protein-calorie malnutrition Plan: , using ensure. improved intake , tolertating soft mechanical diet (5) Weakness generalized ICD Codes: R53.1 - Weakness Status: Resolved Plan: per PT note yesterday ambulated 250 feet with out assistive device (6) Acute renal failure ICD Codes: N17.9 - Acute kidney failure, unspecified Status: Resolved Plan: resolved with hydration, taking po fluids will stop IV fluids and observe if she is able to maintain hydration, push fluids (7) Hypokalemia ICD Codes: E87.6 - Hypokalemia Status: Resolved Plan: potassium normal today (8) Dehydration ICD Codes: E86.0 - Dehydration Status: Resolved (9) H/O ETOH abuse ICD Codes: Z87.898 - Personal history of other specified conditions Status: Chronic Plan: states has had no alcohol since admission in jun 2017 Assessment and Plan Problem Qualifiers (1) Acute renal failure: Qualified Codes: N17.9 - Acute kidney failure, unspecified Lawanda Negron MD Jan 02, 2018 18:39
[2018-01-02] MEDS ORDERED: CIPR-9 PO (19:11)
[2018-01-02] MEDS ORDERED: BUPR150CR PO (19:11)
--- NOTE | 2018-01-02 19:34 | HHI.DS ---
Discharge Summary Admission Date Dec 30, 2017 at 10:47 Admitting Diagnosis dehydration, ARF, hypokalemia (1) Sepsis secondary to UTI Diagnosis: Principal ICD Codes: A41.9 - Sepsis, unspecified organism; N39.0 - Urinary tract infection, site not specified (2) Diarrhea Diagnosis: Secondary ICD Codes: R19.7 - Diarrhea, unspecified Status: Resolved (3) Cystic mass of pancreas Diagnosis: Secondary ICD Codes: K86.2 - Cyst of pancreas Status: Chronic (4) Moderate malnutrition Diagnosis: Secondary ICD Codes: E44.0 - Moderate protein-calorie malnutrition (5) Weakness generalized Diagnosis: Secondary ICD Codes: R53.1 - Weakness Status: Resolved (6) Acute renal failure Diagnosis: Secondary ICD Codes: N17.9 - Acute kidney failure, unspecified Status: Resolved (7) Hypokalemia Diagnosis: Secondary ICD Codes: E87.6 - Hypokalemia Status: Resolved (8) Dehydration Diagnosis: Secondary ICD Codes: E86.0 - Dehydration Status: Resolved (9) H/O ETOH abuse Diagnosis: Secondary ICD Codes: Z87.898 - Personal history of other specified conditions Status: Chronic [facility] Brief History This is a pleasant 62-year-old female with past medical history of alcoholism, pancreatic cyst, hypertension, chronic kidney disease stage III who presented to the ER yesterday evening complaining of a 3 week history of urinary frequency and incontinence. Her primary care physician is Dr. Prashant Pichardo although she reports she usually sees a nurse practitioner. The patient states that about 3 weeks ago she saw her PCP and she is a little bit vague on the details but it sounds like she had an x-ray and some type of CT scan. She also reports that she had blood in her urine. I do not have Dr. Pichardo's recent records but do have a note from Jul 2017 and recent records have been requested. The patient also states she has had diarrhea for the past 5 days. She denies any vomiting. She does endorse nausea. The patient denies dysuria. She denies noticing fevers at home however she was febrile with temp of 101 in the emergency department. The patient states she has chronic urinary incontinence. She stopped drinking water due to the urinary frequency. She works at [employer] and states she cannot go to the bathroom so frequently while at work. Today she is still having dysuria. Denies flank pain. Does endorse she fell 3 weeks ago and reports unstable gait since her hospitalization in June which she attributes to Haldol prescribed during that visit (she is no longer taking this) . She also has generalized weakness and is requiring significant assistance to get out of bed. Last colonoscopy in 2014 at which time she had a polyp and microscopic colitis. She presented to the ER last night with mild acute kidney injury and UA suggestive of infection. On admission creatinine was 1.7 and potassium was 2.5. She was given IV fluids overnight and creatinine has returned to baseline this morning. Jaime catheter was removed this morning. Renal ultrasound shows mild dilation of the right collecting system and mild increased echogenicity of the kidneys suggestive of medical renal disease. Of note I did review her outpatient creatinines which have ranged between 1.1-1.74 over the past several months. AST is elevated at 53 which is lower than previous. Patient states she has not had any alcohol since June. Blood cultures and urine culture have been drawn and she has been on Rocephin. Of note the patient does have a known 4 x 6 cm cystic lesion in her pancreas diagnosed in June 2017 she was admitted to the hospital for altered mental status,, polysubstance use, possible alcohol withdrawal she had psychosis during that hospitalization and actually was admitted to the med psych max. Apparently she underwent endoscopic ultrasound with FNA June 18. She had elevated CEA levels in the cystic fluid. She had a follow-up CT with pancreatic protocol on August 10 which showed a stable 5 cm cystic mass, and a chronic proximal small left ureteral stone with mild hydronephrosis which was unchanged. The patient was supposed to follow-up with gastroenterology and was referred to oncology for this cystic mass however due to finances she was unable to make these appointments. CBC/BMP: 12/31/17 0515 01/02/18 0557 Significant Findings Laboratory Tests Test 12/31/17 05:15 01/01/18 06:29 01/01/18 12:32 01/02/18 05:57 Red Blood Count 3.94 MIL/MM3 (4.00-5.30) Neutrophils (%) (Auto) 70.2 % (16.0-70.0) Monocytes (%) (Auto) 11.3 % (0.0-8.0) Monocytes # (Auto) 1.0 TH/MM3 (0-0.9) Total Protein 5.4 GM/DL (6.4-8.2) 5.2 GM/DL (6.4-8.2) Albumin 1.6 GM/DL (3.4-5.0) 1.4 GM/DL (3.4-5.0) Calcium Level 7.8 MG/DL (8.5-10.1) 7.9 MG/DL (8.5-10.1) 8.2 MG/DL (8.5-10.1) Alkaline Phosphatase 121 U/L (45-117) Aspartate Amino Transf (AST/SGOT) 42 U/L (15-37) Potassium Level 3.0 MEQ/L (3.5-5.1) 3.4 MEQ/L (3.5-5.1) Chloride Level 111 MEQ/L (98-107) 112 MEQ/L (98-107) Estimat Glomerular Filtration Rate 64 ML/MIN (>89) 74 ML/MIN (>89) Random Glucose 126 MG/DL (74-106) Magnesium Level 1.1 MG/DL (1.5-2.5) Imaging Last Impressions Abdomen CT 01/01/18 0000 Signed Impressions: CONCLUSION: 1. Slight interval decrease in size of pancreatic cyst compared with July 132017. 2. Small bilateral pleural effusions. 3. Previous cholecystectomy without biliary ductal dilatation. 4. Mild left-sided hydronephrosis with heterogeneous enhancement of the left k idney could be related to mild obstructive uropathy. Tiny bilateral renal cysts . Chest X-Ray 12/29/17 1254 Signed Impressions: CONCLUSION: No acute cardiopulmonary process. Renal Ultrasound 12/29/17 0000 Signed Impressions: CONCLUSION: 1. Mild dilatation of the right collecting system. 2. Mild increased echogenicity of the kidneys which can suggest medical renal disease. PE at Discharge GENERAL: Pleasant and cooperative, NAD HEAD: Atraumatic. Normocephalic. EYES: Pupils equal round and reactive. Extraocular motions intact. ENT: partially edentolous. CARDIOVASCULAR: Regular rate and rhythm without murmurs, gallops, or rubs. RESPIRATORY: Clear to auscultation. Breath sounds equal bilaterally. No wheezes , rales, or rhonchi. GASTROINTESTINAL: Abdomen soft, non-tender, nondistended. No hepato-splenomegaly , or palpable masses. No guarding. MUSCULOSKELETAL: No pedal edema. NEUROLOGICAL: Awake and alert. Motor and sensory grossly within normal limits. Speech is normal. Hospital Course Patient admitted to general medical floor. Placed on IV antibiotics, and hydrated . Culture grew klebsiella sensitive to cipro. She was switched to oral medications and remained afebrile. Renal function improved with hydration. electrolytes were replaced. GI was consulted due to diarrhea and pancreatic mass. Diarrhea actually improved. Ct scan was ordered showed slight decrease in size of pancreatic cyst. GI felt patient still needed to be seen By oncology but could be done as an outpatient.Both the poultry farmer and I stressed with the patient the importance of keeping her appt with the oncologist . She voiced understanding and stated she would go. Patient was given the name of Dr Bailey to call ( I beleive he sees patients in [place])but I will call oncology when they are open tommorrow so they can call her as well. Pt Condition on Discharge: Fair Discharge Disposition: Discharge Home Discharge Instructions DIET: Follow Instructions for: As Tolerated, No Restrictions Activities you can perform: Regular-No Restrictions Follow up Referrals: Oncology/Hematology - 3 Weeks with Jakub Bailey MD PCP Follow-up - 1 Week New Medications: Bupropion HCl ER 12 HR (Wellbutrin SR 12 HR) 150 Mg Tab 150 MG PO BID for depression for 30 Days, #60 TAB Ciprofloxacin (Cipro) 500 Mg Tab 500 MG PO Q12HR for uti for 5 Days, #10 TAB Lawanda Negron MD Jan 02, 2018 19:34
== END 2018-01-02 20:30 | disposition home or self-care (01) | DRG 872 ==
LOC: PHED 12:49 → PHEDA 14:26 → PH3B 15:36 → OBSVTOIN 12-30 10:47
PROVIDERS: ADMIT Family Medicine; ATTEND Family Medicine
DX: A41.4 Sepsis due to anaerobes (principal); J90 Pleural effusion, not elsewhere classified; N17.9 Acute kidney failure, unspecified; E44.0 Moderate protein-calorie malnutrition; K86.2 Cyst of pancreas; N18.3 Chronic kidney disease, stage 3 (moderate); N39.0 Urinary tract infection, site not specified; I12.9 Hypertensive chronic kidney disease with stage 1 through stage 4 chronic kidney disease, or unspecified chronic kidney disease; E86.0 Dehydration; E87.6 Hypokalemia; R19.7 Diarrhea, unspecified; E78.5 Hyperlipidemia, unspecified; R32 Unspecified urinary incontinence; R26.81 Unsteadiness on feet; F10.20 Alcohol dependence, uncomplicated; F32.9 Major depressive disorder, single episode, unspecified; F41.9 Anxiety disorder, unspecified; Z91.19 Patient's noncompliance with other medical treatment and regimen; Z91.81 History of falling
CPT/HCPCS: 51702; 71045; 74160; 76775; 80048; 80053; 81001; 82105; 82378; 82607; 83605; 83735; 85025; 86301; 87040; 87077; 87086; 87186; 96361; 96365; 96368; G0378; J0696; J1650; J3475; J3480; J7030; Q9963; Q9967